=== PATIENT | female | born 1940 | race African-American/Black ===

== ENCOUNTER 2018-08-23 16:01 | Inpatient (IN) | payer MEDICARE, OTHER ==
[2018-08-23 16:31] VITALS: BMI 23.8
--- NOTE | 2018-08-23 17:11 | PDOC ---
Attending Attestation - Resident Resident Name: Magalie Swartz - ED Attending Attestation I have performed the following: I have examined & evaluated the patient, The case was reviewed & discussed with the resident, I agree w/resident's findings & plan, Exceptions are as noted - HPI HPI: 08/23/18 18:14 The patient is a 77 year old female, from [facility], with a significant PMH of hypertension, hyperlipidemia, COPD, dementia, type 2 DM, depression, who presents to the emergency department via EMS with decreased oral intake for 1 week. As per [facility] staff, the patient has had noticeable weight loss as of recently. The patient states she has had decreased oral intake this past week secondary to difficulty with mastication. The patient states if she attempts to swallow food without chewing she ends up vomiting. The patient endorses weakness secondary to the decreased oral intake. The patient also endorses one episode of non bloody, non bilious emesis this past week and a couple of episodes of diarrhea (non bloody) with the last occurring this morning. Pt is a poor historian. The patient denies chest pain, shortness of breath, headache and dizziness. Denies fever, chills, and constipation. Denies dysuria, frequency, urgency and hematuria. Allergies: NKA - Physicial Exam PE: 08/23/18 18:15 agree with resident exam - Medical Decision Making 08/23/18 18:15 77yo F with MMP presents to the ED with failure to thrive, poor PO intake, weight loss, possible rectal bleeding per [place] staff? Plan for labs, XR, UA, stool occult. Anticipate admission. Heart Score/ECG Review #1 08/23/18 18:57 Twelve-lead EKG was performed and reviewed by me. Sinus rhythm, rate 80. Normal axis. No ST elevations. Diffuse T-wave flattening.
[2018-08-23] MEDS ORDERED: SODIUM CHLORIDE 0.9% 500 ML INFUS.BAG IV ONE (17:28)
--- NOTE | 2018-08-23 17:58 | PDOC ---
History of Present Illness - General Chief Complaint: Loss of Appetite Stated Complaint: FAILURE TO THRIVE Time Seen by Provider: 08/23/18 16:28 History Source: Patient, Care Provider, Shelter Records Exam Limitations: Dementia - History of Present Illness Initial Comments: 08/23/18 17:46 77YOF with h/o dementia, HTN, HLD, COPD, DM, and iron deficiency anemia, who was BIBEMS for failure to thrive with 20 lbs weight loss since June 2018, also family reported intermittent rectal bleeding. The patient herself states she has had difficulty chewing for the past week and this is why she is not eating. She notes one episode of vomiting this week, also multiple episodes of diarrhea. [facility] records that arrived with the patient state, "Resident has had poor intake and poor appetite. Weight loss evident. GI consult done and recommended Gtube insertion. Needs evaluation if GI recommendation is possible for present condition. Needs evaluation for cause of appetite loss." On discussion over the phone with [facility] rep, he states the patient's family wanted her evaluated for this month-standing worsening appetite, generalized weakness, weight loss, and rectal bleeding. Otherwise the patient denies any new symptoms. Past History - Past Medical History Allergies/Adverse Reactions: Allergies Allergy/AdvReac Type Severity Reaction Status Date / Time No Known Allergies Allergy Verified 08/23/18 16:15 Home Medications: Ambulatory Orders Amlodipine Besylate [Norvasc -] 10 mg PO DAILY 08/23/18 Docusate Sodium [Colace] 200 mg PO DAILY 08/23/18 Ergocalciferol (Vitamin D2) [Vitamin D2] 50,000 unit PO WEEKLY 08/23/18 Ferrous Sulfate [Feosol] 325 mg PO DAILY 08/23/18 Lisinopril [Prinivil] 10 mg PO DAILY 08/23/18 Metformin HCl [Metformin HCl ER] 500 mg PO BID 08/23/18 Ranitidine [Zantac -] 150 mg PO BID 08/23/18 Anemia: Yes COPD: Yes Diabetes: Yes HTN: Yes Hypercholesterolemia: Yes - Suicide/Smoking/Psychosocial Hx Smoking History: Never smoked Review of Systems - Review of Systems Able to Perform ROS?: Yes Comments:: 08/23/18 18:00 GEN: generalized weakness, weight loss, no fever, chills, or malaise HEENT: difficulty chewing, no ear pain, sore throat, vision change, or eye pain CV: no chest pain, palpitations, lightheadedness, syncope, or edema RESP: no cough, wheezing, or SOB GI: vomiting, diarrhea, no abdominal pain, nausea, constipation, or white/black stool : vaginal skin tear, no dysuria, hematuria, incontinence, retention, bleeding , or discharge MSK: no neck/back pain, muscle weakness/pain, or joint swelling/pain NEURO: no headache, seizure, vertigo, numbness, tingling, or focal weakness PSYCH: no substance use, no behavior change SKIN: no jaundice, no rash ROS otherwise negative except as noted in HPI *Physical Exam - Vital Signs Last Vital Signs Temp Pulse Resp BP Pulse Ox 97.9 F 64 18 144/97 93 L 08/23/18 16:06 08/23/18 16:06 08/23/18 16:06 08/23/18 16:06 08/23/18 16:06 - Physical Exam Comments: 08/23/18 18:01 GENERAL: pleasant, bizarre affect, rocking back and forth for duration of interview, A/Ox4, no distress, answers questions appropriately, speech a bit difficult to understand HEENT: edentulous, PERRLA, EOMI, moist mucous membranes NECK/BACK: no midline ttp, no spinal stepoff or deformity, no hematoma, full ROM , neck supple CARDIOVASCULAR: regular rate/rhythm with occasional premature beat, normal S1S2 , 1/6 systolic ejection murmur, strong peripheral pulses, capillary refill <2 seconds, extremities wwp, no edema LUNGS/RESPIRATORY: no respiratory distress, CTAB GI/ABDOMEN: symmetric [id number], normoactive BS, soft, no ttp, no midline pulsatile masses : 0.5x1cm superficial ulceration to anterior labia minora which is dressed with Xeroform, no CVA tenderness EXTREMITIES: no muscle atrophy, no acute deformity SKIN: warm and dry, no pallor, no jaundice, no rash, no bruising, no skin breakdown, no cuts, no lesions NEUROLOGICAL: CN II-XII grossly intact, 5/5 strength proximally and distally, no facial droop Moderate Sedation - Procedure Monitoring Vital Signs: Procedure Monitoring Vital Signs Temperature 97.9 F 08/23/18 16:06 Pulse Rate 64 08/23/18 16:06 Respiratory Rate 18 08/23/18 16:06 Blood Pressure 144/97 08/23/18 16:06 O2 Sat by Pulse Oximetry (%) 93 L 08/23/18 16:06 ED Treatment Course - LABORATORY CBC & Chemistry Diagram: 08/23/18 18:00 08/23/18 18:00 - RADIOLOGY Radiology Studies Ordered: Category Date Time Status CHEST X-RAY PORTABLE* [RAD] Stat Radiology 08/23/18 17:28 Ordered Medical Decision Making - Medical Decision Making 08/23/18 18:06 Pt p/w report of intermittent rectal bleeding per SNF. Initial Vital Signs Temp Pulse Resp BP Pulse Ox 97.9 F 64 18 144/97 93 L 08/23/18 16:06 08/23/18 16:06 08/23/18 16:06 08/23/18 16:06 08/23/18 16:06 Exam: As noted in Physical Exam section. DDX IBNLT bleeding hemorrhoids (internal vs. external, simple vs. thrombosed), vascular malformation, ruptured diverticulum, diverticulitis, colorectal CA, mesenteric ischemia, anal fissure, ulcerative colitis, AAA/AD, endometriosis, Meckels diverticulum, supratherapeutic INR, etc. W/U ordered: Labs as noted below, CXR, EKG, CT A/P with IV contrast Tx ordered: IVF The patient is hemodynamically stable at this time (no hypotension, tachycardia , or reported decreased UOP). EKG: Reviewed; results as noted in ECG Review section. Laboratory Tests 08/23/18 08/23/18 08/23/18 18:00 18:00 18:00 WBC 4.0 RBC 4.22 Hgb 9.6 L Hct 30.8 L MCV 73.0 L MCH 22.8 L MCHC 31.2 L RDW 15.4 Plt Count 221 MPV 8.6 Absolute Neuts (auto) 2.4 Neutrophils % 60.2 Lymphocytes % 27.8 Monocytes % 7.6 Eosinophils % 4.0 Basophils % 0.4 Nucleated RBC % 0 PT with INR 16.70 H INR 1.41 H PTT (Actin FS) 26.9 Sodium 149 H Potassium 2.4 L* Chloride 107 Carbon Dioxide 33 H Anion Gap 9 BUN 5 L Creatinine 0.5 L Creat Clearance w eGFR > 60 Random Glucose 318 H* Calcium 7.2 L Phosphorus 1.6 L Magnesium 1.3 L Total Bilirubin 0.4 AST 12 L ALT 8 L Alkaline Phosphatase 112 Creatine Kinase Troponin I Total Protein 5.2 L Albumin 1.4 L Urine Color Urine Appearance Urine pH Ur Specific [place] Urine Protein Urine Glucose (UA) Urine Ketones Urine Blood Urine Nitrite Urine Bilirubin Urine Urobilinogen Ur Leukocyte Esterase Stool Occult Blood 08/23/18 08/23/18 08/23/18 18:02 18:15 18:40 WBC RBC Hgb Hct MCV MCH MCHC RDW Plt Count MPV Absolute Neuts (auto) Neutrophils % Lymphocytes % Monocytes % Eosinophils % Basophils % Nucleated RBC % PT with INR INR PTT (Actin FS) Sodium Potassium Chloride Carbon Dioxide Anion Gap BUN Creatinine Creat Clearance w eGFR Random Glucose Calcium Phosphorus Magnesium Total Bilirubin AST ALT Alkaline Phosphatase Creatine Kinase 152 Troponin I 0.06 H Total Protein Albumin Urine Color Ltyellow Urine Appearance Clear Urine pH 6.0 Ur Specific [place] 1.011 Urine Protein Negative Urine Glucose (UA) 3+ H Urine Ketones Negative Urine Blood Negative Urine Nitrite Negative Urine Bilirubin Negative Urine Urobilinogen 4.0 e.u/dl H Ur Leukocyte Esterase Negative Stool Occult Blood Negative Patient's Mg and potassium are low; orders placed to replete. She is pending CT A/P prior to admission. Patient's care is endorsed to Dr. Metcalf at the end of my shift. *DC/Admit/Observation/Transfer Diagnosis at time of Disposition: Failure to thrive syndrome, adult, Unexplained weight loss, Rectal bleeding - Discharge Dispostion Condition at time of disposition: Guarded - Referrals Referrals: Johan Mancuso MD [Primary Care Provider] - - Patient Instructions - Post Discharge Activity
[2018-08-23 18:13] LABS: BASO % 0.4 % (0-2.0); HEMATOCRIT 30.8 % (32.4-45.2); HEMOGLOBIN 9.6 GM/dL (10.7-15.3); LYMPH % 27.8 % (8-40); MCH 22.8 pg (25.7-33.7); MCHC 31.2 g/dl (32.0-36.0); MEAN PLT VOLUME 8.6 fl (7.5-11.1); MONO % 7.6 % (3.8-10.2); NEUT % 60.2 % (42.8-82.8); PLATELET COUNT 221 K/MM3 (134-434); RBC 4.22 M/mm3 (3.60-5.2); RDW 15.4 % (11.6-15.6)
[2018-08-23 18:28] LABS: INR 1.41 (0.83-1.09); PROTHROMBIN TIME (PATIENT) 16.7 SEC (9.7-13.0)
[2018-08-23 18:47] LABS: ALBUMIN 1.4 g/dl (3.4-5.0); ALK PHOS 112 U/L (45-117); ANION GAP 9 MMOL/L (8-16); BILIRUBIN,TOTAL 0.4 mg/dL (0.2-1); BLOOD UREA NITROGEN 5 mg/dL (7-18); CALCIUM 7.2 mg/dL (8.5-10.1); CHLORIDE 107 mmol/L (98-107); CO2 33 mmol/L (21-32); CREATININE 0.5 mg/dL (0.55-1.3); MAGNESIUM 1.3 mg/dL (1.8-2.4); PHOSPHOROUS 1.6 mg/dL (2.5-4.9); SGOT/AST 12 U/L (15-37); SGPT/ALT 8 U/L (13-61); SODIUM 149 mmol/L (136-145); TOT PROT 5.2 g/dl (6.4-8.2)
[2018-08-23 18:48] LABS: ACTIVATED PTT 26.9 SECONDS (25.2-36.5)
[2018-08-23 18:48] LABS: URINE APPEARANCE CLEAR; URINE BILIRUBIN NEGATIVE (<2.0 mg/dL); URINE COLOR LTYELLOW; URINE GLUCOSE (UA) 3+ (NEGATIVE); URINE KETONE NEGATIVE (NEGATIVE); URINE LEUK ESTERASE NEGATIVE (NEGATIVE); URINE NITRITE NEGATIVE (NEGATIVE); URINE PROTEIN NEGATIVE (NEGATIVE); URINE UROBILINOGEN 4.0 E.U/dl mg/dL (0.2-1.0)
[2018-08-23 18:49] LABS: GLUCOSE,RANDOM 318 mg/dL (74-106)
[2018-08-23 18:50] LABS: POTASSIUM 2.4 mmol/L (3.5-5.1)
[2018-08-23] MEDS ORDERED: POTASSIUM CHLORIDE ORAL LIQUID 20 MEQ/15 ML PO ONE (18:54)
[2018-08-23] MEDS ORDERED: POTASSIUM CHLORIDE 20 MEQ PREMIX IVPB 100 ML IVPB ONE (18:56)
[2018-08-23] MEDS ORDERED: MAGNESIUM SULF 50% (8.12 MEQ/2 ML-1 GM VIAL) IVPB ONE (18:58)
[2018-08-23] MEDS ORDERED: MAGNESIUM 1GM/D5W - 2 GM/200 ML IVPB IVPB ONE (19:07)
[2018-08-23] MEDS ORDERED: POTASSIUM CHLORIDE ORAL LIQUID 20 MEQ/15 ML ONE (19:07)
--- NOTE | 2018-08-23 19:07 | PDOC ---
*Physical Exam - Vital Signs Last Vital Signs Temp Pulse Resp BP Pulse Ox 97.9 F 64 18 144/97 93 L 08/23/18 16:06 08/23/18 16:06 08/23/18 16:06 08/23/18 16:06 08/23/18 16:06 ED Treatment Course - LABORATORY CBC & Chemistry Diagram: 08/23/18 18:00 08/23/18 18:00 - ADDITIONAL ORDERS Additional order review: Laboratory Results 08/23/18 08/23/18 08/23/18 18:40 18:15 18:02 PT with INR INR PTT (Actin FS) Sodium Potassium Chloride Carbon Dioxide Anion Gap BUN Creatinine Creat Clearance w eGFR Random Glucose Calcium Phosphorus Magnesium Total Bilirubin AST ALT Alkaline Phosphatase Creatine Kinase 152 Creatine Kinase Index 0.6 CK-MB (CK-2) < 1.0 Troponin I 0.06 H Total Protein Albumin Urine Color Ltyellow Urine Appearance Clear Urine pH 6.0 Ur Specific [place] 1.011 Urine Protein Negative Urine Glucose (UA) 3+ H Urine Ketones Negative Urine Blood Negative Urine Nitrite Negative Urine Bilirubin Negative Urine Urobilinogen 4.0 e.u/dl H Ur Leukocyte Esterase Negative Stool Occult Blood Negative 08/23/18 08/23/18 18:00 18:00 PT with INR 16.70 H INR 1.41 H PTT (Actin FS) 26.9 Sodium 149 H Potassium 2.4 L* Chloride 107 Carbon Dioxide 33 H Anion Gap 9 BUN 5 L Creatinine 0.5 L Creat Clearance w eGFR > 60 Random Glucose 318 H* Calcium 7.2 L Phosphorus 1.6 L Magnesium 1.3 L Total Bilirubin 0.4 AST 12 L ALT 8 L Alkaline Phosphatase 112 Creatine Kinase Creatine Kinase Index CK-MB (CK-2) Troponin I Total Protein 5.2 L Albumin 1.4 L Urine Color Urine Appearance Urine pH Ur Specific [place] Urine Protein Urine Glucose (UA) Urine Ketones Urine Blood Urine Nitrite Urine Bilirubin Urine Urobilinogen Ur Leukocyte Esterase Stool Occult Blood 08/23/18 18:00 RBC 4.22 MCV 73.0 L MCHC 31.2 L RDW 15.4 MPV 8.6 Neutrophils % 60.2 Lymphocytes % 27.8 Monocytes % 7.6 Eosinophils % 4.0 Basophils % 0.4 - Medications Given in the ED: ED Medications Discontinued Medications Generic Name Dose Route Start Last Admin Trade Name Freq PRN Reason Stop Dose Admin Sodium Chloride 1,000 ml 08/23/18 17:28 08/23/18 18:04 Normal Saline - IV 08/23/18 17:29 1,000 ml ONCE ONE Administration Medical Decision Making - Medical Decision Making Pending CT A&P for evaluation of mass v SBO Plan for admission for FTT 08/23/18 19:07 Pepcid 20mg IV once 08/23/18 19:09 Refusing PO contrast Refusing PO KCl 08/23/18 19:39 CT w/ evidence of proctocolitis and TAAA/dissection Dispo: admit for FTT, proctocolitis 08/24/18 04:32 *DC/Admit/Observation/Transfer Diagnosis at time of Disposition: Failure to thrive syndrome, adult, Unexplained weight loss, Rectal bleeding - Discharge Dispostion Condition at time of disposition: Guarded Decision to Admit order: Yes - Referrals - Patient Instructions - Post Discharge Activity
[2018-08-23] MEDS ORDERED: FAMOTIDINE 20 MG/50 ML IVPB 20 MG/50 ML MG IVPB ONE ×2 (19:09→20:46)
[2018-08-23] MEDS ORDERED: KCL 10 MEQ IVPB 20 MEQ/200 ML INFUS.BAG IVPB ONE (19:21)
[2018-08-23 19:22] LABS: PLATELET ESTIMATE ADEQUATE; TARGET CELLS 1+; TOXIC GRANULATION 1+
--- NOTE | 2018-08-23 19:42 | PDOC ---
*Physical Exam - Vital Signs Last Vital Signs Temp Pulse Resp BP Pulse Ox 97.9 F 64 18 144/97 93 L 08/23/18 16:06 08/23/18 16:06 08/23/18 16:06 08/23/18 16:06 08/23/18 16:06 ED Treatment Course - LABORATORY CBC & Chemistry Diagram: 08/23/18 18:00 08/23/18 18:00 - ADDITIONAL ORDERS Additional order review: Laboratory Results 08/23/18 08/23/18 08/23/18 18:40 18:15 18:02 PT with INR INR PTT (Actin FS) Sodium Potassium Chloride Carbon Dioxide Anion Gap BUN Creatinine Creat Clearance w eGFR Random Glucose Calcium Phosphorus Magnesium Total Bilirubin AST ALT Alkaline Phosphatase Creatine Kinase 152 Creatine Kinase Index 0.6 CK-MB (CK-2) < 1.0 Troponin I 0.06 H Total Protein Albumin Urine Color Ltyellow Urine Appearance Clear Urine pH 6.0 Ur Specific [place] 1.011 Urine Protein Negative Urine Glucose (UA) 3+ H Urine Ketones Negative Urine Blood Negative Urine Nitrite Negative Urine Bilirubin Negative Urine Urobilinogen 4.0 e.u/dl H Ur Leukocyte Esterase Negative Stool Occult Blood Negative 08/23/18 08/23/18 18:00 18:00 PT with INR 16.70 H INR 1.41 H PTT (Actin FS) 26.9 Sodium 149 H Potassium 2.4 L* Chloride 107 Carbon Dioxide 33 H Anion Gap 9 BUN 5 L Creatinine 0.5 L Creat Clearance w eGFR > 60 Random Glucose 318 H* Calcium 7.2 L Phosphorus 1.6 L Magnesium 1.3 L Total Bilirubin 0.4 AST 12 L ALT 8 L Alkaline Phosphatase 112 Creatine Kinase Creatine Kinase Index CK-MB (CK-2) Troponin I Total Protein 5.2 L Albumin 1.4 L Urine Color Urine Appearance Urine pH Ur Specific [place] Urine Protein Urine Glucose (UA) Urine Ketones Urine Blood Urine Nitrite Urine Bilirubin Urine Urobilinogen Ur Leukocyte Esterase Stool Occult Blood 08/23/18 18:00 RBC 4.22 MCV 73.0 L MCHC 31.2 L RDW 15.4 MPV 8.6 Neutrophils % 60.2 Lymphocytes % 27.8 Monocytes % 7.6 Eosinophils % 4.0 Basophils % 0.4 - Medications Given in the ED: ED Medications Discontinued Medications Generic Name Dose Route Start Last Admin Trade Name Freq PRN Reason Stop Dose Admin Magnesium Sulfate 2 gm 08/23/18 18:58 08/23/18 19:17 Magnesium Sulfate IVPB 08/23/18 18:59 2 gm ONCE ONE Administration Potassium Chloride 80 meq 08/23/18 18:54 08/23/18 19:39 Potassium Chloride Oral Liquid PO 08/23/18 18:55 Not Given ONCE ONE Potassium Chloride 30 meq 08/23/18 18:56 08/23/18 19:38 Potassium Chloride 20 Meq Premix Ivpb - IVPB 08/23/18 18:57 30 meq ONCE ONE Administration Sodium Chloride 1,000 ml 08/23/18 17:28 08/23/18 18:04 Normal Saline - IV 08/23/18 17:29 1,000 ml ONCE ONE Administration Medical Decision Making - Medical Decision Making 08/23/18 19:39 I received pt on signout. She is not eating at the IN and her K and Mg and albumin are low. Pt is unwilling to take the PO potassium that had been written for her by the previous team. And she is unwilling to take the oral contrast for CT scan. As a result we will order more K+ IV riders and we will change her CT scan to one with IV contrast only, as her BUN and Cr are normal. 08/23/18 20:08 Pt appears to have shingles at the lateral left wrist area, and she will require isolation when she is admitted. *DC/Admit/Observation/Transfer Diagnosis at time of Disposition: Failure to thrive syndrome, adult, Unexplained weight loss, Rectal bleeding - Discharge Dispostion Condition at time of disposition: Guarded - Referrals Referrals: Johan Mancuso MD [Primary Care Provider] - - Patient Instructions - Post Discharge Activity
[2018-08-23] MEDS ORDERED: KCL 10 MEQ IVPB 10 MEQ/100 ML INFUS.BAG IVPB ONE (21:49)
[2018-08-23] MEDS ORDERED: NAPH,MB-DB/K PH,MBDB POWDER PACKET PO ONE (21:56)
[2018-08-23] MEDS ORDERED: SODIUM CHLORIDE 0.45%/POT 20 MEQ/1,000 ML INFUS.BAG IV SCH (22:45)
--- NOTE | 2018-08-23 23:30 | HP ---
CHIEF COMPLAINT: failure to thrive PCP: from [facility] HISTORY OF PRESENT ILLNESS: 77 YO F from [facility] with PMH of HTN, HLD, DM2, COPD, dementia and depression , sent for the concern of failure to thrive/20lb weight loss since June 2018. Patient is a poor historian, and thus initial history was obtained from ED physician and prior records. Patient endorses decreased appetite for the past week and multiple episodes of watery, non-bloody diarrhea with generalized weakness. She denies any abdominal pain, difficulty swallowing, fever/chills, constipation or urinary symptoms. States that she simple has no desire to eat. ER course was notable for: (1) CT abd/pelvis: acute proctocolitis, fusiform aneurysmal dilation (2) (3) Recent Travel: unknown PAST MEDICAL HISTORY: HTN, HLD, DM2, COPD, dementia and depression PAST SURGICAL HISTORY: multiple abdominal surgeries Social History: Smoking: former smoker, unknown duration Alcohol: unable to obtain secondary to mental status Drugs: unable to obtain secondary to mental status Family History: unknown Allergies No Known Allergies Allergy (Verified 08/23/18 16:15) HOME MEDICATIONS: Home Medications Medication Instructions Recorded Amlodipine Besylate [Norvasc -] 10 mg PO DAILY 08/23/18 Docusate Sodium [Colace] 200 mg PO DAILY 08/23/18 Ergocalciferol (Vitamin D2) 50,000 unit PO WEEKLY 08/23/18 [Vitamin D2] Ferrous Sulfate [Feosol] 325 mg PO DAILY 08/23/18 Lisinopril [Prinivil] 10 mg PO DAILY 08/23/18 Metformin HCl [Metformin HCl ER] 500 mg PO BID 08/23/18 Ranitidine [Zantac -] 150 mg PO BID 08/23/18 REVIEW OF SYSTEMS Unable to assess due to mental status PHYSICAL EXAMINATION Vital Signs - 24 hr 08/23/18 08/23/18 16:06 22:25 Temperature 97.9 F Pulse Rate 64 Pulse Rate [ 79 Apical] Respiratory 18 18 Rate Blood Pressure 144/97 Blood Pressure 147/83 [Right Arm] O2 Sat by Pulse 93 L 96 Oximetry (%) GENERAL: A&Ox1 to person, NAD HEAD: Normal with no signs of trauma. EYES: Pupils equal, round and reactive to light, EOMI, sclera anicteric, conjunctiva clear. No lid lag. EARS, NOSE, THROAT: Moist mucous membranes. LUNGS: Breath sounds equal, clear to auscultation bilaterally. No wheezes, and no crackles. No accessory muscle use. HEART: Regular rate and rhythm, systolic ejection murmur radiating to carotids ABDOMEN: Soft, nontender, not distended, normoactive bowel sounds, no guarding, no rebound, no masses. No hepatomegaly or splenomegaly. GENITOURINARY: vaginal skin tear, no hematuria MUSCULOSKELETAL: Normal range of motion at all joints. Strength 5/5 throughout. UPPER EXTREMITIES: 2+ pulses, warm, well-perfused. No cyanosis. No clubbing. No peripheral edema. LOWER EXTREMITIES: 2+ pulses, warm, well-perfused. No calf tenderness. No peripheral edema. NEUROLOGICAL: Cranial nerves II-XII intact. SKIN: Warm, dry, normal turgor, rash noted on left lateral forearm Laboratory Results - last 24 hr 08/23/18 08/23/18 08/23/18 18:00 18:00 18:00 WBC 4.0 RBC 4.22 Hgb 9.6 L Hct 30.8 L MCV 73.0 L MCH 22.8 L MCHC 31.2 L RDW 15.4 Plt Count 221 MPV 8.6 Absolute Neuts (auto) 2.4 Total Counted 100 Neutrophils % 60.2 Neutrophils % (Manual) 57.0 Band Neutrophils % 11.0 Lymphocytes % 27.8 Lymphocytes % (Manual) 25.0 Monocytes % 7.6 Monocytes % (Manual) 5 Eosinophils % 4.0 Eosinophils % (Manual) 3.0 Basophils % 0.4 Nucleated RBC % 0 Hypochromia 1+ Toxic Granulation 1+ Platelet Estimate Adequate Platelet Comment No clumping noted Polychromasia 1+ Target Cells 1+ PT with INR 16.70 H INR 1.41 H PTT (Actin FS) 26.9 Sodium 149 H Potassium 2.4 L* Chloride 107 Carbon Dioxide 33 H Anion Gap 9 BUN 5 L Creatinine 0.5 L Creat Clearance w eGFR > 60 Random Glucose 318 H* Calcium 7.2 L Phosphorus 1.6 L Magnesium 1.3 L Total Bilirubin 0.4 AST 12 L ALT 8 L Alkaline Phosphatase 112 Creatine Kinase Creatine Kinase Index CK-MB (CK-2) Troponin I Total Protein 5.2 L Albumin 1.4 L Urine Color Urine Appearance Urine pH Ur Specific [place] [employer] Urine Protein Urine Glucose (UA) Urine Ketones Urine Blood Urine Nitrite Urine Bilirubin Urine Urobilinogen Ur Leukocyte Esterase Stool Occult Blood 08/23/18 08/23/18 08/23/18 18:02 18:15 18:40 WBC RBC Hgb Hct MCV MCH MCHC RDW Plt Count MPV Absolute Neuts (auto) Total Counted Neutrophils % Neutrophils % (Manual) Band Neutrophils % Lymphocytes % Lymphocytes % (Manual) Monocytes % Monocytes % (Manual) Eosinophils % Eosinophils % (Manual) Basophils % Nucleated RBC % Hypochromia Toxic Granulation Platelet Estimate Platelet Comment Polychromasia Target Cells PT with INR INR PTT (Actin FS) Sodium Potassium Chloride Carbon Dioxide Anion Gap BUN Creatinine Creat Clearance w eGFR Random Glucose Calcium Phosphorus Magnesium Total Bilirubin AST ALT Alkaline Phosphatase Creatine Kinase 152 Creatine Kinase Index 0.6 CK-MB (CK-2) < 1.0 Troponin I 0.06 H Total Protein Albumin Urine Color Ltyellow Urine Appearance Clear Urine pH 6.0 Ur Specific [employer] 1.011 Urine Protein Negative Urine Glucose (UA) 3+ H Urine Ketones Negative Urine Blood Negative Urine Nitrite Negative Urine Bilirubin Negative Urine Urobilinogen 4.0 e.u/dl H Ur Leukocyte Esterase Negative Stool Occult Blood Negative ASSESSMENT/PLAN: 77 YO F from [facility] with PMH of HTN, HLD, DM2, COPD, dementia and depression, sent for failure to thrive and 20lb weight loss since June 2018. #Failure to Thrive: likely due to decreased PO intake and decreased appetite. This is likely a multifactorial problem which would require investigation into a possible malignancy vs intestinal anginal symptoms based on cardiovascular risk factors -patient's CT showed calcified aorta and both thoracic and abdominal aortic aneurysmal dilatations and acute proctocolitis -albumin 1.4, elevated INR both likely due to failure to thrive -GI consulted -brazing machine setter consult -diabetic/sodium diet if tolerated -gave 1 bag of 1/2ns + 20meq KCL @ 83cc/hr -cyproheptadine TIDAC ordered as potential appetite stimulation, will obtain GI and dietary input -will perform CTA of chest and abdomen to further assess for malignancy #Acute Proctocolitis: likely the cause of patient's diarrhea and electrolyte abnormalities -started patient on metronidazole [id number] -blood cultures pending -urine cultures pending -diabetic sodium diet unless not tolerated, then will change to NPO #Aortic Aneurysms: patient has both thoracic and abdominal aneurysmal dilatations -vascular consulted Dr. Trejo -will hold off on anticoagulation prophylaxis for DVT until vascular clears #Hyperosmolar Hypovolemic Hypernatremia: potentially a result of poor PO intake -serum osm 325 -corrected sodium 152 mEq/L -urine creatinine and FeNa ordered -1/2NS+20mEq KCl given as fluid replacement #Elevated INR: likely secondary to failure to thrive and inappropriate clotting factor production -will recheck INR #Hypophosphatemia -repleting phosphorous -recheck levels in the morning #Severe Hypokalemia: initial potassium was 2.4 -K and Mg repleted in ED -continue IV infusion of 1/2 NaCl + 20 K -repeat levels in AM #Troponinemia: unlikely acute ACS -will get echocardiogram -cardiology consultation for evaluation of valvular abnormality and troponinemia #Hypoalbuminemia: likely 2/2 decreased PO intake -repeat CMP #Diabetes mellitus -held metformin -give ISS, BGMs ACHS #Hypertension: mildly hypertensive -repeat BP in AM -monitor salt intake -continue amlodipine 10mg QD -continue lisinopril 10mg QD #Anemia -continue iron supplementation #FEN -1/2NS+20mEq KCl -replete lytes as per above -diabetic/sodium diet as tolerated, get dietary input #PPx -hold lovenox until vascular approves Visit type - Emergency Visit Emergency Visit: Yes ED Registration Date: 08/23/18 Care time: The patient presented to the Emergency Department on the above date and was hospitalized for further evaluation of their emergent condition. - New Patient This patient is new to me today: Yes Date on this admission: 08/24/18 - Critical Care Critical Care patient: No
--- NOTE | 2018-08-23 23:43 | PN ---
Teaching Attending Note Name of Resident: Alfredo Kwon ATTENDING PHYSICIAN STATEMENT I saw and evaluated the patient. I reviewed the resident's note and discussed the case with the resident. I agree with the resident's findings and plan as documented. SUBJECTIVE: OBJECTIVE: ASSESSMENT AND PLAN: this is a 77 y/o f patient with moderate dementia, presented to the hospital after the patient was referred from the [place] for failure to thrive, weight-loss poor oral intake assocaited with diarrhea, patient is a poor historian - the history was obtained from the chart mostly. patient was noted to have aneurysm of the thoracic aorta, and abdominal aorta with severe calcification no masses were seen on the scan plan - admit the patient for the management of electrolyte abnormalities, aortic aneurysm, hyperglycemia, failure to thrive decrease PO intake - possible 2/2 post-prandil angina vs malignancy hypovolemic Hypernatremia: - obtain TSH - fluid hydration - correct 152 - obtain urine electrolyte for the FeNa Hypokalemia 2/2 acute GI loss and poor oral intake - replenish K - increase PO intake Hypophosphatemia: - replenish phosphate keep > 2.0 hypoalbumiemia - 2/2 to poor oral intake - national sales associate evaluation - ensure Aortic aneurysm: - consult vascular surgery - avoid enoxaparin, heparin, or anti-coagulation due to the aneurysm Diarrhea 2/2 procto-colitis - start metronidzaole 500mg [id number] DM: insulin sliding scale
--- NOTE | 2018-08-24 03:33 | PN ---
Progress Note (short form) - Note Progress Note: Vital Signs Temperature 97.9 F 08/23/18 23:48 Pulse Rate 69 08/23/18 23:48 Respiratory Rate 18 08/23/18 23:48 Blood Pressure 133/82 08/23/18 23:48 O2 Sat by Pulse Oximetry (%) 94 L 08/23/18 23:48 GENERAL: A&Ox1 to person, NAD HEAD: Normal with no signs of trauma. EYES: Pupils equal, round and reactive to light, EOMI, sclera anicteric, conjunctiva clear. EARS, NOSE, THROAT: Moist mucous membranes. LUNGS: Breath sounds equal, clear to auscultation bilaterally. No wheezes, and no crackles. No accessory muscle use. HEART: Regular rate and rhythm, ROCKY 3/6 --- radiating to carotids ABDOMEN: Soft, nontender, not distended, normoactive bowel sounds, no guarding, no rebound, no masses. No hepatomegaly or splenomegaly. MUSCULOSKELETAL: Normal range of motion at all joints. Strength 5/5 throughout. EXTREMITIES: 2+ pulses, warm, well-perfused. No cyanosis. No clubbing. No peripheral edema. NEUROLOGICAL: Cranial nerves II-XII intact. SKIN: Warm, dry, normal turgor, rash noted on left lateral forearm GENITOURINARY: vaginal skin tear, no hematuria CBCD WBC 4.0 K/mm3 (4.0-10.0) 08/23/18 18:00 RBC 4.22 M/mm3 (3.60-5.2) 08/23/18 18:00 Hgb 9.6 GM/dL (10.7-15.3) L 08/23/18 18:00 Hct 30.8 % (32.4-45.2) L 08/23/18 18:00 MCV 73.0 fl (80-96) L 08/23/18 18:00 MCHC 31.2 g/dl (32.0-36.0) L 08/23/18 18:00 RDW 15.4 % (11.6-15.6) 08/23/18 18:00 Plt Count 221 K/MM3 (134-434) 08/23/18 18:00 MPV 8.6 fl (7.5-11.1) 08/23/18 18:00 CMP Sodium 149 mmol/L (136-145) H 08/23/18 18:00 Potassium 2.4 mmol/L (3.5-5.1) L* 08/23/18 18:00 Chloride 107 mmol/L (98-107) 08/23/18 18:00 Carbon Dioxide 33 mmol/L (21-32) H 08/23/18 18:00 Anion Gap 9 MMOL/L (8-16) 08/23/18 18:00 BUN 5 mg/dL (7-18) L 08/23/18 18:00 Creatinine 0.5 mg/dL (0.55-1.3) L 08/23/18 18:00 Creat Clearance w eGFR > 60 (>60) 08/23/18 18:00 Random Glucose 318 mg/dL (74-106) H* 08/23/18 18:00 Calcium 7.2 mg/dL (8.5-10.1) L 08/23/18 18:00 Total Bilirubin 0.4 mg/dL (0.2-1) 08/23/18 18:00 AST 12 U/L (15-37) L 08/23/18 18:00 ALT 8 U/L (13-61) L 08/23/18 18:00 Alkaline Phosphatase 112 U/L (45-117) 08/23/18 18:00 Total Protein 5.2 g/dl (6.4-8.2) L 08/23/18 18:00 Albumin 1.4 g/dl (3.4-5.0) L 08/23/18 18:00 CARDIAC ENZYMES Creatine Kinase 152 IU/L (26-192) 08/23/18 18:02 Troponin I 0.06 ng/ml (0.00-0.05) H 08/23/18 18:02 Current Medications Generic Name Dose Route Start Last Admin Trade Name Freq PRN Reason Stop Dose Admin Amlodipine Besylate 10 mg 08/24/18 10:00 Norvasc - PO DAILY [facility] Cyproheptadine HCl 4 mg 08/24/18 07:00 Periactin - PO TIDAC [facility] Ferrous Sulfate 325 mg 08/24/18 10:00 Feosol - PO DAILY [facility] Potassium Chloride/Sodium Chloride 20 meq in 1,000 mls @ 83 mls/hr 08/23/18 22 :45 08/23/18 23:36 1/2ns+20meq Kcl IV 08/24/18 10:48 83 mls/hr ASDIR [facility] Administration Metronidazole 500 mg in 100 mls @ 100 mls/hr 08/23/18 23:15 08/23/18 23:39 Flagyl 500mg Premixed Ivpb - IVPB 100 mls/hr Q6H-IV [facility] Administration Insulin Aspart 1 vial 08/24/18 07:00 Novolog Vial Sliding Scale - SQ ACHS [facility] Protocol Lisinopril 10 mg 08/24/18 10:00 Prinivil PO DAILY [facility] Ranitidine HCl 150 mg 08/24/18 10:00 Zantac - PO BID [facility] Home Medications Medication Instructions Recorded Amlodipine Besylate [Norvasc -] 10 mg PO DAILY 08/23/18 Docusate Sodium [Colace] 200 mg PO DAILY 08/23/18 Ergocalciferol (Vitamin D2) 50,000 unit PO WEEKLY 08/23/18 [Vitamin D2] Ferrous Sulfate [Feosol] 325 mg PO DAILY 08/23/18 Lisinopril [Prinivil] 10 mg PO DAILY 08/23/18 Metformin HCl [Metformin HCl ER] 500 mg PO BID 08/23/18 Ranitidine [Zantac -] 150 mg PO BID 08/23/18 CT showed calcified aorta and both thoracic and abdominal aortic aneurysmal dilatations and acute proctocolitis, mural infrarenal thrombus A/P: Patient is a 77yo female from [facility] with PMH of HTN, HLD, DM2, COPD, dementia and depression, sent for failure to thrive and 20lb weight loss since June 2018. #Failure to Thrive: multifactorial , on ivf , Gi consult ,CTA of chest and abdomen to further assess for malignancy #Acute Proctocolitis: likely the cause of patient's diarrhea and electrolyte abnormalities, started patient on metronidazole 500 q6h, IV -blood cx, urine cx is pending #Aortic Aneurysms: patient has both thoracic and abdominal aneurysmal dilatations, vascular consulted Dr. Trejo Infrarenal mural thrombus ; will get dr. Trejo to see the patient , will hold off on anticoagulation prophylaxis for DVT until vascular clears #Acute Hypernatremia: On IVF, will get nephrology involved #Elevated INR: likely secondary to failure to thrive, follow INR #Hypophosphatemia replete phosphorous, monitor #Severe Hypokalemia: initial potassium was 2.4, replete #Troponinemia: unlikely acute ACS, get echocardiogram -cardiology consultation for evaluation of valvular abnormality and troponinemia #Hypoalbuminemia: due to decreased PO intake #Diabetes mellitus: SS with coverage, hold metformin #Hypertension: continue amlodipine 10mg QD, lisinopril 10mg QD #Anemia continue iron supplementation DVT PPx: hold lovenox until vascular approves
[2018-08-24] MEDS: CEFAZOLIN 1 GM/D5W 1 GM/50 ML BAG IVPB SCH ×3 (06:23→20:32)
[2018-08-24] MEDS: INSULIN SLIDING SCALE (NOVOLOG) 1 VIAL SQ SCH ×4 (06:23→22:56)
[2018-08-24 06:51] LABS: HEMATOCRIT 27.5 % (32.4-45.2); HEMOGLOBIN 8.7 GM/dL (10.7-15.3); MCHC 31.7 g/dl (32.0-36.0); MEAN CELL VOLUME 72.6 fl (80-96); MEAN PLT VOLUME 8.9 fl (7.5-11.1); PLATELET COUNT 224 K/MM3 (134-434); RBC 3.78 M/mm3 (3.60-5.2); RDW 14.9 % (11.6-15.6); WHITE BLOOD COUNT 5.3 K/mm3 (4.0-10.0)
[2018-08-24] MEDS ORDERED: CYPROHEPTADINE HCL 4 MG TABLET PO SCH (07:00)
[2018-08-24 07:41] LABS: ALBUMIN 1.3 g/dl (3.4-5.0); ALK PHOS 105 U/L (45-117); ANION GAP 7 MMOL/L (8-16); BILIRUBIN,TOTAL 0.8 mg/dL (0.2-1); BLOOD UREA NITROGEN 4 mg/dL (7-18); CHLORIDE 107 mmol/L (98-107); CO2 33 mmol/L (21-32); CREATININE 0.5 mg/dL (0.55-1.3); MAGNESIUM 1.8 mg/dL (1.8-2.4); PHOSPHOROUS 1.6 mg/dL (2.5-4.9); SGOT/AST 10 U/L (15-37); SGPT/ALT 8 U/L (13-61); SODIUM 147 mmol/L (136-145); TOT PROT 4.8 g/dl (6.4-8.2)
[2018-08-24 08:03] LABS: GLUCOSE,RANDOM 304 mg/dL (74-106)
[2018-08-24 08:04] LABS: CALCIUM 6.8 mg/dL (8.5-10.1); POTASSIUM 2.1 mmol/L (3.5-5.1)
[2018-08-24] MEDS ORDERED: ENOXAPARIN NA (PORCINE) 40 MG/0.4 ML DISP.SYRIN SQ SCH (10:00)
[2018-08-24] MEDS: FERROUS SO4 325 MG TABLET (FP) PO SCH (10:01)
[2018-08-24] MEDS: RANITIDINE HCL 150 MG TABLET (FP) PO SCH ×2 (10:01→22:24)
[2018-08-24] MEDS: amLODIPine BESYLATE 10 MG TABLET (FP) PO SCH (10:01)
[2018-08-24] MEDS: LISINOPRIL 10 MG TABLET (FP) PO SCH (10:02)
[2018-08-24] MEDS ORDERED: POTASSIUM CHLORIDE ORAL LIQUID 20 MEQ/15 ML PO ONE (10:21)
--- NOTE | 2018-08-24 10:51 | CON.CARD ---
Consult Consult Specialty:: Cardiology Referred by:: Curtis Reason for Consultation:: aortic aneurysm - History of Present Illness Chief Complaint: weakness History of Present Illness: 77F h/o HTN, HLD, DM, COPD, dementia p/w failure to thrive, weight loss, weakness. Also diarrhea, weakness. CT showed calcified aorta, abd and thoracic aneurysmal dilation and acute proctocolitis. Undergoing malignancy workup. Troponin 0.06->0.07. Patient unable to give further hx, says she feels well, no chest pain, palps, dizziness, lightheadedness. - Past Medical History ...: No - Alcohol/Substance Use Hx Alcohol Use: No - Smoking History Smoking history: Never smoked Have you smoked in the past 12 months: No Home Medications - Allergies Allergies/Adverse Reactions: Allergies Allergy/AdvReac Type Severity Reaction Status Date / Time No Known Allergies Allergy Verified 08/23/18 16:15 - Home Medications Home Medications: Ambulatory Orders Amlodipine Besylate [Norvasc -] 10 mg PO DAILY 08/23/18 Docusate Sodium [Colace] 200 mg PO DAILY 08/23/18 Ergocalciferol (Vitamin D2) [Vitamin D2] 50,000 unit PO WEEKLY 08/23/18 Ferrous Sulfate [Feosol] 325 mg PO DAILY 08/23/18 Lisinopril [Prinivil] 10 mg PO DAILY 08/23/18 Metformin HCl [Metformin HCl ER] 500 mg PO BID 08/23/18 Ranitidine [Zantac -] 150 mg PO BID 08/23/18 Family Disease History - Family Disease History Family History: Unable to Obtain Review of Systems - Review of Systems Constitutional: reports: No Symptoms Eyes: reports: No Symptoms HENT: reports: No Symptoms Neck: reports: No Symptoms Cardiovascular: reports: No Symptoms Respiratory: reports: No Symptoms Gastrointestinal: reports: No Symptoms Genitourinary: reports: No Symptoms Musculoskeletal: reports: No Symptoms Integumentary: reports: No Symptoms Neurological: reports: No Symptoms Endocrine: reports: No Symptoms Hematology/Lymphatic: reports: No Symptoms Psychiatric: reports: No Symptoms Vital Signs: Vital Signs Temperature 98.1 F 08/24/18 06:00 Pulse Rate 81 08/24/18 06:00 Respiratory Rate 18 08/24/18 08:37 Blood Pressure 124/67 08/24/18 06:00 O2 Sat by Pulse Oximetry (%) 94 L 08/24/18 08:37 Constitutional: Yes: Well Nourished, No Distress, Calm Eyes: Yes: Conjunctiva Clear, EOM Intact HENT: Yes: Atraumatic, Normocephalic Neck: Yes: Supple, Trachea Midline Respiratory: Yes: Regular, CTA Bilaterally Gastrointestinal: Yes: Normal Bowel Sounds Cardiovascular: Yes: Regular Rate and Rhythm JVD: No Carotid Bruit: No Heart Sounds: Yes: S1, S2 Murmur: No: Systolic Murmur Musculoskeletal: No: Back Pain Extremities: No: Cold Edema: No Peripheral Pulses WNL: Yes Peripheral Pulses: 2+ Left Doralis Pedis, 2+ Right Dorsalis Pedis Neurological: Yes: Alert, Confusion Psychiatric: No: Agitated - Other Data Labs, Other Data: CBC, BMP 08/24/18 05:30 08/24/18 05:30 INR, PTT INR 1.41 (0.83-1.09) H 08/23/18 18:00 Troponin, BNP 08/23/18 08/24/18 18:02 05:30 Troponin I 0.06 H 0.07 H Troponin, BNP 08/23/18 08/24/18 18:02 05:30 Troponin I 0.06 H 0.07 H Assessment/Plan EKG: sinus, PACs, PVC, no ischemic changes CXR: no acute process tele: sinus, PACs, PVCs CT A/P: acute proctocolitis, partially imaged descending thoracic aorta with aneurysmal dilation at least 4 cm, mural thrombus along dilated segment, extends into suprarenal and infrarenal aorta with max diameter 3.4 cm, mural thrombus along l lateral aspect of infrarenal aorta, extensive atheroscloerotic vascular calcifications are seen, small john pleural effusions Failure to thrive, weakness - manage per primary, on abx, lytes repletion elevated troponin - indeterminate range, flat trend, unremarkable EKG - unlikely ACS abdominal and thoracic aorta aneurysm - CT chest pending for further evaluation, not well visualized but reportedly > 4 cm thoracic - vascular consulted - echo ordered as well ?aortic stenosis - per report overnight, patient not aware of hx, poor historian - did not auscultate murmur c/w on exam - echo ordered HTN - stable on current meds, continue
[2018-08-24] MEDS: KCL 10 MEQ IVPB 10 MEQ/100 ML INFUS.BAG IVPB SCH ×3 (10:53→13:26)
[2018-08-24] MEDS ORDERED: POTASSIUM PHOSPHATE 15 MM in DEXTROSE 5%-WATER - 250 ML IVPB ONE (11:16)
--- NOTE | 2018-08-24 11:45 | PN ---
Progress Note (short form) - Note Progress Note: Vital Signs - 24 hr abd pain ate without any problems no diarrhea 08/23/18 08/23/18 08/23/18 16:06 22:25 23:48 Temperature 97.9 F 97.9 F Pulse Rate 64 69 Pulse Rate [ 79 Apical] Respiratory 18 18 18 Rate Blood Pressure 144/97 133/82 Blood Pressure 147/83 [Right Arm] O2 Sat by Pulse 93 L 96 94 L Oximetry (%) 08/24/18 08/24/18 08/24/18 02:00 06:00 08:37 Temperature 98.1 F 98.1 F Pulse Rate 72 81 Pulse Rate [ Apical] Respiratory 18 18 18 Rate Blood Pressure 152/77 124/67 Blood Pressure [Right Arm] O2 Sat by Pulse 94 L Oximetry (%) 08/24/18 10:00 Temperature Pulse Rate 79 Pulse Rate [ Apical] Respiratory 20 Rate Blood Pressure 138/74 Blood Pressure [Right Arm] O2 Sat by Pulse Oximetry (%) Current Medications Generic Name Dose Route Start Last Admin Trade Name Freq PRN Reason Stop Dose Admin Amlodipine Besylate 10 mg 08/24/18 10:00 08/24/18 10:01 Norvasc - PO 10 mg DAILY [facility] Administration Ferrous Sulfate 325 mg 08/24/18 10:00 08/24/18 10:01 Feosol - PO 325 mg DAILY [facility] Administration Metronidazole 500 mg in 100 mls @ 100 mls/hr 08/23/18 23:15 08/24/18 10:01 Flagyl 500mg Premixed Ivpb - IVPB 100 mls/hr Q6H-IV [facility] Administration Cefazolin Sodium 1 gm in 50 mls @ 100 mls/hr 08/24/18 07:00 08/24/18 06:23 Ancef 1 Gm Premixed Ivpb - IVPB 100 mls/hr Q6H-IV [facility] Administration Potassium Chloride 10 meq in 100 mls @ 100 mls/hr 08/24/18 10:30 08/24/18 10: 53 Potassium Chloride 10 Meq Premix Ivpb - IVPB 08/24/18 13:29 100 mls/hr Q60M [facility] Administration Potassium Phosphate 15 mm/ 255 mls @ 63.75 mls/hr 08/24/18 11:16 08/24/18 11: 40 Dextrose IVPB 08/24/18 15:15 63.75 mls/hr ONCE ONE Administration 15 MM/4 HR Insulin Aspart 1 vial 08/24/18 07:00 08/24/18 06:23 Novolog Vial Sliding Scale - SQ 6 units ACHS [facility] Administration Protocol Lisinopril 10 mg 08/24/18 10:00 08/24/18 10:02 Prinivil PO 10 mg DAILY [facility] Administration Ranitidine HCl 150 mg 08/24/18 10:00 08/24/18 10:01 Zantac - PO 150 mg BID [facility] Administration Laboratory Results - last 24 hr 08/23/18 08/23/18 08/23/18 18:00 18:00 18:00 WBC 4.0 RBC 4.22 Hgb 9.6 L Hct 30.8 L MCV 73.0 L MCH 22.8 L MCHC 31.2 L RDW 15.4 Plt Count 221 MPV 8.6 Absolute Neuts (auto) 2.4 Total Counted 100 Neutrophils % 60.2 Neutrophils % (Manual) 57.0 Band Neutrophils % 11.0 Lymphocytes % 27.8 Lymphocytes % (Manual) 25.0 Monocytes % 7.6 Monocytes % (Manual) 5 Eosinophils % 4.0 Eosinophils % (Manual) 3.0 Basophils % 0.4 Nucleated RBC % 0 Hypochromia 1+ Toxic Granulation 1+ Platelet Estimate Adequate Platelet Comment No clumping noted Polychromasia 1+ Target Cells 1+ PT with INR 16.70 H INR 1.41 H PTT (Actin FS) 26.9 Sodium 149 H Potassium 2.4 L* Chloride 107 Carbon Dioxide 33 H Anion Gap 9 BUN 5 L Creatinine 0.5 L Creat Clearance w eGFR > 60 POC Glucometer Random Glucose 318 H* Hemoglobin A1c % Calcium 7.2 L Phosphorus 1.6 L Magnesium 1.3 L Total Bilirubin 0.4 AST 12 L ALT 8 L Alkaline Phosphatase 112 Creatine Kinase Creatine Kinase Index CK-MB (CK-2) Troponin I Total Protein 5.2 L Albumin 1.4 L Urine Color Urine Appearance Urine pH Ur Specific [place] Urine Protein Urine Glucose (UA) Urine Ketones Urine Blood Urine Nitrite Urine Bilirubin Urine Urobilinogen Ur Leukocyte Esterase Stool Occult Blood 08/23/18 08/23/18 08/23/18 18:02 18:15 18:40 WBC RBC Hgb Hct MCV MCH MCHC RDW Plt Count MPV Absolute Neuts (auto) Total Counted Neutrophils % Neutrophils % (Manual) Band Neutrophils % Lymphocytes % Lymphocytes % (Manual) Monocytes % Monocytes % (Manual) Eosinophils % Eosinophils % (Manual) Basophils % Nucleated RBC % Hypochromia Toxic Granulation Platelet Estimate Platelet Comment Polychromasia Target Cells PT with INR INR PTT (Actin FS) Sodium Potassium Chloride Carbon Dioxide Anion Gap BUN Creatinine Creat Clearance w eGFR POC Glucometer Random Glucose Hemoglobin A1c % Calcium Phosphorus Magnesium Total Bilirubin AST ALT Alkaline Phosphatase Creatine Kinase 152 Creatine Kinase Index 0.6 CK-MB (CK-2) < 1.0 Troponin I 0.06 H Total Protein Albumin Urine Color Ltyellow Urine Appearance Clear Urine pH 6.0 Ur Specific [place] 1.011 Urine Protein Negative Urine Glucose (UA) 3+ H Urine Ketones Negative Urine Blood Negative Urine Nitrite Negative Urine Bilirubin Negative Urine Urobilinogen 4.0 e.u/dl H Ur Leukocyte Esterase Negative Stool Occult Blood Negative 08/24/18 08/24/18 08/24/18 05:30 05:30 05:30 WBC 5.3 RBC 3.78 Hgb 8.7 L Hct 27.5 L MCV 72.6 L MCH 23.0 L MCHC 31.7 L RDW 14.9 Plt Count 224 MPV 8.9 Absolute Neuts (auto) Total Counted Neutrophils % Neutrophils % (Manual) Band Neutrophils % Lymphocytes % Lymphocytes % (Manual) Monocytes % Monocytes % (Manual) Eosinophils % Eosinophils % (Manual) Basophils % Nucleated RBC % Hypochromia Toxic Granulation Platelet Estimate Platelet Comment Polychromasia Target Cells PT with INR INR PTT (Actin FS) Sodium 147 H Potassium 2.1 L* Chloride 107 Carbon Dioxide 33 H Anion Gap 7 L BUN 4 L Creatinine 0.5 L Creat Clearance w eGFR > 60 POC Glucometer Random Glucose 304 H* Hemoglobin A1c % 13.4 H Calcium 6.8 L* Phosphorus 1.6 L Magnesium 1.8 Total Bilirubin 0.8 AST 10 L ALT 8 L Alkaline Phosphatase 105 Creatine Kinase Creatine Kinase Index CK-MB (CK-2) Troponin I Total Protein 4.8 L Albumin 1.3 L Urine Color Urine Appearance Urine pH Ur Specific [place] Urine Protein Urine Glucose (UA) Urine Ketones Urine Blood Urine Nitrite Urine Bilirubin Urine Urobilinogen Ur Leukocyte Esterase Stool Occult Blood 08/24/18 08/24/18 05:30 05:49 WBC RBC Hgb Hct MCV MCH MCHC RDW Plt Count MPV Absolute Neuts (auto) Total Counted Neutrophils % Neutrophils % (Manual) Band Neutrophils % Lymphocytes % Lymphocytes % (Manual) Monocytes % Monocytes % (Manual) Eosinophils % Eosinophils % (Manual) Basophils % Nucleated RBC % Hypochromia Toxic Granulation Platelet Estimate Platelet Comment Polychromasia Target Cells PT with INR INR PTT (Actin FS) Sodium Potassium Chloride Carbon Dioxide Anion Gap BUN Creatinine Creat Clearance w eGFR POC Glucometer 292 Random Glucose Hemoglobin A1c % Calcium Phosphorus Magnesium Total Bilirubin AST ALT Alkaline Phosphatase Creatine Kinase 127 Creatine Kinase Index CK-MB (CK-2) Troponin I 0.07 H Total Protein Albumin Urine Color Urine Appearance Urine pH Ur Specific [place] Urine Protein Urine Glucose (UA) Urine Ketones Urine Blood Urine Nitrite Urine Bilirubin Urine Urobilinogen Ur Leukocyte Esterase Stool Occult Blood S1 S2 RRR Lungs clear Abd-soft, tender LLQ, lower abd Ext- no edema no rash noted PLAN Aortic aneurysm-- Vascular eval Hypokalemia-- replace lytes repeat labs tomorrow Proctocolitis-- on iv antibiotics, iv fluids Problem List - Problems (1) Proctocolitis Code(s): K52.9 - NONINFECTIVE GASTROENTERITIS AND COLITIS, UNSPECIFIED (2) Hypokalemia Code(s): E87.6 - HYPOKALEMIA (3) Failure to thrive syndrome, adult Code(s): R62.7 - ADULT FAILURE TO THRIVE (4) Rectal bleeding Code(s): K62.5 - HEMORRHAGE OF ANUS AND RECTUM
--- NOTE | 2018-08-24 16:31 | CONS ---
GASTROINTESTINAL CONSULTATION DATE OF CONSULTATION: DATE OF DICTATION: 08/24/2018 HISTORY OF PRESENT ILLNESS: The patient is a 77-year-old female from [facility] with a past medical history of hypertension, hyperlipidemia, COPD, diabetes, dementia, depression, who was sent to the hospital with failure to thrive, 20-pound weight loss since June 2019. Patient is a poor historian. As per the records, she has had multiple episodes of watery diarrhea with generalized weakness. She currently denies any abdominal pain, nausea, vomiting, dysphagia, fevers, chills or urinary symptoms. PAST MEDICAL AND SURGICAL HISTORY: As listed in the HPI, with the addition of abdominal surgery. ALLERGIES: No known drug allergies. SOCIAL HISTORY: Former smoker. Does not currently smoke. Alcohol and drugs: Does not drink or . FAMILY HISTORY: Not able to obtain at this time. HOME MEDICATIONS: Reviewed include Norvasc, Colace, vitamin D, iron, , metformin, and ranitidine. REVIEW OF SYSTEMS: Negative, except for pertinent positives in the HPI. PHYSICAL EXAMINATION: Vital Signs: Temperature 98, pulse 79, blood pressure 138/74, respiratory rate 12, pulse oximetry 94. General: In no acute distress. HEENT: Anicteric sclera. Cardiovascular: S1, S2. Regular rate and rhythm. Lungs: Clear bilaterally. Abdomen: Soft. Nontender. Extremities: No edema. LABORATORIES: White blood cell count 5.3, hemoglobin and hematocrit 8.7 over 27, MCV 72, platelet count 224. INR 1.4. Sodium 147, potassium 2.1, BUN over creatinine 4 over 0.5, glucose 304, calcium 6.8. Total bilirubin 0.8, AST 10, ALT 8. Troponin 0.07. Cultures are pending. C difficile was ordered and is negative. She had an abdominal and pelvis CT scan which revealed acute proctocolitis, small bilateral effusions, multiple intramural and subserosal uterine leiomyomas, pedunculated leiomyoma and large ovary questionable or an enlarged lymph node in the left adnexa. MRI was recommended for further evaluation. Also, fusiform aneurysmal dilation of the partially imaged descending thoracic aorta with extension into the abdominal aorta. Chest CT was advised. Also, with diffuse steatosis. IMPRESSION: Failure to thrive with weight loss, as well as diarrhea, found to have acute proctocolitis, with associated electrolyte abnormalities. RECOMMENDATIONS: Continue antibiotics. She is currently on metronidazole for her proctocolitis. Calorie count. Once the acute process is corrected and she is medically cleared, she may benefit from diagnostic upper endoscopy. Would also obtain a swallow evaluation to exclude dysphagia as an etiology of her failure to thrive. Stool cultures and follow up blood and urine culture. CHE JACOB DO [id number]
[2018-08-24 19:07] LABS: ANION GAP 8 MMOL/L (8-16); BLOOD UREA NITROGEN 3 mg/dL (7-18); CHLORIDE 107 mmol/L (98-107); CO2 33 mmol/L (21-32); CREATININE 0.5 mg/dL (0.55-1.3); GLUCOSE,RANDOM 203 mg/dL (74-106); SODIUM 148 mmol/L (136-145)
[2018-08-24 19:08] LABS: CALCIUM 6.8 mg/dL (8.5-10.1); POTASSIUM 2.3 mmol/L (3.5-5.1)
[2018-08-24 22:36] LABS: ALBUMIN 1.2 g/dl (3.4-5.0); ALK PHOS 105 U/L (45-117); ANION GAP 9 MMOL/L (8-16); BILIRUBIN,TOTAL 0.5 mg/dL (0.2-1); BLOOD UREA NITROGEN 4 mg/dL (7-18); CHLORIDE 108 mmol/L (98-107); CO2 31 mmol/L (21-32); CREATININE 0.5 mg/dL (0.55-1.3); GLUCOSE,RANDOM 213 mg/dL (74-106); SGOT/AST 16 U/L (15-37); SGPT/ALT 10 U/L (13-61); SODIUM 148 mmol/L (136-145); TOT PROT 4.5 g/dl (6.4-8.2)
[2018-08-24 22:38] LABS: POTASSIUM 2.6 mmol/L (3.5-5.1)
[2018-08-24 22:39] LABS: CALCIUM 6.3 mg/dL (8.5-10.1)
[2018-08-25] MEDS ORDERED: KCL 10 MEQ IVPB 10 MEQ/100 ML INFUS.BAG IVPB SCH (01:45)
[2018-08-25] MEDS: CEFAZOLIN 1 GM/D5W 1 GM/50 ML BAG IVPB SCH ×2 (02:12→10:49)
[2018-08-25] MEDS: INSULIN SLIDING SCALE (NOVOLOG) 1 VIAL SQ SCH ×4 (06:20→23:06)
--- NOTE | 2018-08-25 07:24 | PN ---
Progress Note, Physician Chief Complaint: NO NEW COMPLAINTS , DOING OK TODAY - Current Medication List Current Medications: Active Medications Amlodipine Besylate (Norvasc -) 10 mg PO DAILY [facility] Last Admin: 08/24/18 10:01 Dose: 10 mg Ferrous Sulfate (Feosol -) 325 mg PO DAILY [facility] Last Admin: 08/24/18 10:01 Dose: 325 mg Metronidazole (Flagyl 500mg Premixed Ivpb -) 500 mg in 100 mls @ 100 mls/hr IVPB Q6H-IV [facility] Last Admin: 08/25/18 02:12 Dose: 100 mls/hr Cefazolin Sodium (Ancef 1 Gm Premixed Ivpb -) 1 gm in 50 mls @ 100 mls/hr IVPB Q6H-IV [facility] Last Admin: 08/25/18 02:12 Dose: 100 mls/hr Insulin Aspart (Novolog Vial Sliding Scale -) 1 vial SQ ACHS [facility]; Protocol Last Admin: 08/25/18 06:20 Dose: Not Given Lisinopril (Prinivil) 10 mg PO DAILY [facility] Last Admin: 08/24/18 10:02 Dose: 10 mg Ranitidine HCl (Zantac -) 150 mg PO BID [facility] Last Admin: 08/24/18 22:24 Dose: Not Given - Objective Vital Signs: Vital Signs Temperature 98.3 F 08/25/18 06:00 Pulse Rate 76 08/25/18 06:00 Respiratory Rate 20 08/25/18 06:00 Blood Pressure 116/76 08/25/18 06:00 O2 Sat by Pulse Oximetry (%) 94 L 08/24/18 20:40 Constitutional: Yes: Well Nourished, No Distress, Calm Eyes: Yes: WNL HENT: Yes: WNL Neck: Yes: WNL Cardiovascular: Yes: WNL, Regular Rate and Rhythm Respiratory: Yes: WNL, Regular, CTA Bilaterally Gastrointestinal: Yes: WNL, Normal Bowel Sounds, Soft Musculoskeletal: Yes: WNL Extremities: Yes: WNL Edema: No Labs: CBC, BMP 08/24/18 05:30 INR, PTT INR 1.41 (0.83-1.09) H 08/23/18 18:00 Problem List - Problems (1) Failure to thrive syndrome, adult Assessment/Plan: - C/W ABX - DIET TOLERATED - F/U CBC - CALORIE COUNT ;ENCOURAGE PO INTAKE / ENSURE TID Code(s): R62.7 - ADULT FAILURE TO THRIVE (2) Proctocolitis Code(s): K52.9 - NONINFECTIVE GASTROENTERITIS AND COLITIS, UNSPECIFIED
[2018-08-25 08:09] LABS: ANION GAP 11 MMOL/L (8-16); BLOOD UREA NITROGEN 4 mg/dL (7-18); CHLORIDE 109 mmol/L (98-107); CO2 32 mmol/L (21-32); CREATININE 0.5 mg/dL (0.55-1.3); GLUCOSE,RANDOM 141 mg/dL (74-106); MAGNESIUM 1.4 mg/dL (1.8-2.4); PHOSPHOROUS 2.6 mg/dL (2.5-4.9); SODIUM 152 mmol/L (136-145)
[2018-08-25 08:13] LABS: CALCIUM 6.5 mg/dL (8.5-10.1); POTASSIUM 2.3 mmol/L (3.5-5.1)
--- NOTE | 2018-08-25 10:04 | PN ---
Progress Note (short form) - Note Progress Note: VAscular Surgery CT abd and pelvis reviewed. Aortic aneurysm size at best is 4cm. No need for any surgical intervention at this time. Indications for procedure would be greater than 6cm in the descending aorta, and greater than 5cm in the infrarenal portion. Medical management for now. Can surveillance every 6 months with ultrasound. Randy Trejo DO
[2018-08-25] MEDS ORDERED: POTASSIUM CHLORIDE ORAL LIQUID 20 MEQ/15 ML PO ONE (10:30)
[2018-08-25] MEDS ORDERED: MAGNESIUM SULF 50% (8.12 MEQ/2 ML-1 GM VIAL) IVPB ONE (10:45)
[2018-08-25] MEDS: amLODIPine BESYLATE 10 MG TABLET (FP) PO SCH (10:49)
[2018-08-25] MEDS: FERROUS SO4 325 MG TABLET (FP) PO SCH (10:49)
[2018-08-25] MEDS: KCL 10 MEQ IVPB 10 MEQ/100 ML INFUS.BAG IVPB SCH ×5 (10:51→23:22)
[2018-08-25] MEDS: LISINOPRIL 10 MG TABLET (FP) PO SCH (10:51)
[2018-08-25] MEDS: RANITIDINE HCL 150 MG TABLET (FP) PO SCH ×2 (10:51→23:22)
--- NOTE | 2018-08-25 11:06 | PN ---
Progress Note (short form) - Note Progress Note: abd pain has diarrhea Vital Signs - 24 hr 08/24/18 08/24/18 08/24/18 14:10 20:40 22:00 Temperature 98.2 F 99.9 F H Pulse Rate 83 83 Respiratory 20 20 Rate Blood Pressure 133/75 136/69 O2 Sat by Pulse 94 L Oximetry (%) 08/25/18 08/25/18 06:00 07:47 Temperature 98.3 F Pulse Rate 76 Respiratory 20 20 Rate Blood Pressure 116/76 O2 Sat by Pulse 96 Oximetry (%) Current Medications Generic Name Dose Route Start Last Admin Trade Name Freq PRN Reason Stop Dose Admin Amlodipine Besylate 10 mg 08/24/18 10:00 08/25/18 10:49 Norvasc - PO 10 mg DAILY [facility] Administration Ferrous Sulfate 325 mg 08/24/18 10:00 08/25/18 10:49 Feosol - PO 325 mg DAILY [facility] Administration Metronidazole 500 mg in 100 mls @ 100 mls/hr 08/23/18 23:15 08/25/18 02:12 Flagyl 500mg Premixed Ivpb - IVPB 100 mls/hr Q6H-IV [facility] Administration Potassium Chloride 10 meq in 100 mls @ 100 mls/hr 08/25/18 10:30 08/25/18 10: 51 Potassium Chloride 10 Meq Premix Ivpb - IVPB 08/25/18 13:29 100 mls/hr Q60M [facility] Administration Potassium Chloride/Sodium Chloride 20 meq in 1,000 mls @ 83 mls/hr 08/25/18 11 :15 Ns+20 Meq Kcl - IV ASDIR [facility] Insulin Aspart 1 vial 08/24/18 07:00 08/25/18 06:20 Novolog Vial Sliding Scale - SQ Not Given ACHS [facility] Protocol Lisinopril 10 mg 08/24/18 10:00 08/25/18 10:51 Prinivil PO 10 mg DAILY [facility] Administration Ranitidine HCl 150 mg 08/24/18 10:00 08/25/18 10:51 Zantac - PO 150 mg BID [facility] Administration Laboratory Results - last 24 hr 08/24/18 08/24/18 08/24/18 11:50 17:25 17:30 Sodium 148 H Potassium 2.3 L* Chloride 107 Carbon Dioxide 33 H Anion Gap 8 BUN 3 L Creatinine 0.5 L Creat Clearance w eGFR > 60 POC Glucometer 114 206 Random Glucose 203 H Calcium 6.8 L* Phosphorus Magnesium Total Bilirubin AST ALT Alkaline Phosphatase Total Protein Albumin 08/24/18 08/24/18 08/25/18 21:31 21:50 05:45 Sodium 148 H 152 H Potassium 2.6 L* 2.3 L* Chloride 108 H 109 H Carbon Dioxide 31 32 Anion Gap 9 11 BUN 4 L 4 L Creatinine 0.5 L 0.5 L Creat Clearance w eGFR > 60 > 60 POC Glucometer 214 Random Glucose 213 H 141 H Calcium 6.3 L* 6.5 L* Phosphorus 2.6 Magnesium 1.4 L Total Bilirubin 0.5 AST 16 ALT 10 L Alkaline Phosphatase 105 Total Protein 4.5 L Albumin 1.2 L 08/25/18 05:51 Sodium Potassium Chloride Carbon Dioxide Anion Gap BUN Creatinine Creat Clearance w eGFR POC Glucometer 134 Random Glucose Calcium Phosphorus Magnesium Total Bilirubin AST ALT Alkaline Phosphatase Total Protein Albumin S1 S2 RRR Lungs clear Abd-soft, tender LLQ, lower abd Ext- no edema no rash noted PLAN Aortic aneurysm-- Vascular eval noted, just follow-up Hypokalemia-- replace lytes repeat labs tomorrow Proctocolitis-- on iv antibiotics, iv fluids check stool for C. difficile Problem List - Problems (1) Proctocolitis Code(s): K52.9 - NONINFECTIVE GASTROENTERITIS AND COLITIS, UNSPECIFIED (2) Hypokalemia Code(s): E87.6 - HYPOKALEMIA (3) Failure to thrive syndrome, adult Code(s): R62.7 - ADULT FAILURE TO THRIVE (4) Rectal bleeding Code(s): K62.5 - HEMORRHAGE OF ANUS AND RECTUM
--- NOTE | 2018-08-25 11:12 | PN ---
Progress Note (short form) - Note Progress Note: Chief Complaint: weakness s: no chest pain, palps, dizziness, lightheadedness Vital Signs: Vital Signs Period Temp Pulse Resp BP Sys/Luna Pulse Ox Last 24 Hr 97.9 F-99.9 F 76-89 18-20 116-136/69-76 94-96 Constitutional: Yes: Well Nourished, No Distress, Calm Eyes: Yes: Conjunctiva Clear, EOM Intact HENT: Yes: Atraumatic, Normocephalic Neck: Yes: Supple, Trachea Midline Respiratory: Yes: Regular, CTA Bilaterally Gastrointestinal: Yes: Normal Bowel Sounds Cardiovascular: Yes: Regular Rate and Rhythm JVD: No Carotid Bruit: No Heart Sounds: Yes: S1, S2 Murmur: No: Systolic Murmur Musculoskeletal: No: Back Pain Extremities: No: Cold Edema: No Peripheral Pulses WNL: Yes Peripheral Pulses: 2+ Left Doralis Pedis, 2+ Right Dorsalis Pedis Neurological: Yes: Alert, Confusion Psychiatric: No: Agitated Current Medications Amlodipine Besylate (Norvasc -) 10 mg PO DAILY [facility] Last Admin: 08/25/18 10:49 Dose: 10 mg Ferrous Sulfate (Feosol -) 325 mg PO DAILY [facility] Last Admin: 08/25/18 10:49 Dose: 325 mg Metronidazole (Flagyl 500mg Premixed Ivpb -) 500 mg in 100 mls @ 100 mls/hr IVPB Q6H-IV [facility] Last Admin: 08/25/18 02:12 Dose: 100 mls/hr Potassium Chloride (Potassium Chloride 10 Meq Premix Ivpb -) 10 meq in 100 mls @ 100 mls/hr IVPB Q60M [facility] Stop: 08/25/18 13:29 Last Admin: 08/25/18 10:51 Dose: 100 mls/hr Potassium Chloride/Sodium Chloride (Ns+20 Meq Kcl -) 20 meq in 1,000 mls @ 83 mls/hr IV ASDIR [facility] Insulin Aspart (Novolog Vial Sliding Scale -) 1 vial SQ ACHS [facility]; Protocol Last Admin: 08/25/18 06:20 Dose: Not Given Lisinopril (Prinivil) 10 mg PO DAILY [facility] Last Admin: 08/25/18 10:51 Dose: 10 mg Ranitidine HCl (Zantac -) 150 mg PO BID [facility] Last Admin: 08/25/18 10:51 Dose: 150 mg Assessment/Plan EKG: sinus, PACs, PVC, no ischemic changes CXR: no acute process tele: sinus, PACs, PVCs CT A/P: acute proctocolitis, partially imaged descending thoracic aorta with aneurysmal dilation at least 4 cm, mural thrombus along dilated segment, extends into suprarenal and infrarenal aorta with max diameter 3.4 cm, mural thrombus along l lateral aspect of infrarenal aorta, extensive atheroscloerotic vascular calcifications are seen, small john pleural effusions Failure to thrive, weakness - manage per primary, on abx, lytes repletion elevated troponin - indeterminate range, flat trend, unremarkable EKG - unlikely ACS abdominal and thoracic aorta aneurysm - CT chest pending for further evaluation, not well visualized but reportedly > 4 cm thoracic - vascular consulted, recommended outpatient surveillance with ultrasound - echo ordered as well ?aortic stenosis - per report overnight, patient not aware of hx, poor historian - did not auscultate murmur c/w on exam - echo ordered HTN - stable on current meds, continue [facility] *[facility]* Consultation-Cardiology Patient Name: HENNY NASH Date of : 1940 Patient Status: Inpatient Attending Provider: Jessica Lopez Date: 08/24/18 10:43 Initialization Date: 08/24/18 10:43 Consult Consult Specialty:: Cardiology Referred by:: Curtis Reason for Consultation:: aortic aneurysm - History of Present Illness Chief Complaint: weakness History of Present Illness: 77F h/o HTN, HLD, DM, COPD, dementia p/w failure to thrive, weight loss, weakness. Also diarrhea, weakness. CT showed calcified aorta, abd and thoracic aneurysmal dilation and acute proctocolitis. Undergoing malignancy workup. Troponin 0.06->0.07. Patient unable to give further hx, says she feels well, no chest pain, palps, dizziness, lightheadedness. - Past Medical History ...: No - Alcohol/Substance Use Hx Alcohol Use: No - Smoking History Smoking history: Never smoked Have you smoked in the past 12 months: No Home Medications - Allergies Allergies/Adverse Reactions: Allergies Allergy/AdvReac Type Severity Reaction Status Date / Time No Known Allergies Allergy Verified 08/23/18 16:15 - Home Medications Home Medications: Ambulatory Orders Amlodipine Besylate [Norvasc -] 10 mg PO DAILY 08/23/18 Docusate Sodium [Colace] 200 mg PO DAILY 08/23/18 Ergocalciferol (Vitamin D2) [Vitamin D2] 50,000 unit PO WEEKLY 08/23/18 Ferrous Sulfate [Feosol] 325 mg PO DAILY 08/23/18 Lisinopril [Prinivil] 10 mg PO DAILY 08/23/18 Metformin HCl [Metformin HCl ER] 500 mg PO BID 08/23/18 Ranitidine [Zantac -] 150 mg PO BID 08/23/18 Family Disease History - Family Disease History Family History: Unable to Obtain Review of Systems - Review of Systems Constitutional: reports: No Symptoms Eyes: reports: No Symptoms HENT: reports: No Symptoms Neck: reports: No Symptoms Cardiovascular: reports: No Symptoms Respiratory: reports: No Symptoms Gastrointestinal: reports: No Symptoms Genitourinary: reports: No Symptoms Musculoskeletal: reports: No Symptoms Integumentary: reports: No Symptoms Neurological: reports: No Symptoms Endocrine: reports: No Symptoms Hematology/Lymphatic: reports: No Symptoms Psychiatric: reports: No Symptoms Vital Signs: Vital Signs Temperature 98.1 F 08/24/18 06:00 Pulse Rate 81 08/24/18 06:00 Respiratory Rate 18 08/24/18 08:37 Blood Pressure 124/67 08/24/18 06:00 O2 Sat by Pulse Oximetry (%) 94 L 08/24/18 08:37 Constitutional: Yes: Well Nourished, No Distress, Calm Eyes: Yes: Conjunctiva Clear, EOM Intact HENT: Yes: Atraumatic, Normocephalic Neck: Yes: Supple, Trachea Midline Respiratory: Yes: Regular, CTA Bilaterally Gastrointestinal: Yes: Normal Bowel Sounds Cardiovascular: Yes: Regular Rate and Rhythm JVD: No Carotid Bruit: No Heart Sounds: Yes: S1, S2 Murmur: No: Systolic Murmur Musculoskeletal: No: Back Pain Extremities: No: Cold Edema: No Peripheral Pulses WNL: Yes Peripheral Pulses: 2+ Left Doralis Pedis, 2+ Right Dorsalis Pedis Neurological: Yes: Alert, Confusion Psychiatric: No: Agitated - Other Data Labs, Other Data: CBC, BMP 08/24/18 05:30 08/24/18 05:30 INR, PTT INR 1.41 (0.83-1.09) H 08/23/18 18:00 Troponin, BNP 08/23/18 08/24/18 18:02 05:30 Troponin I 0.06 H 0.07 H Troponin, BNP 08/23/18 08/24/18 18:02 05:30 Troponin I 0.06 H 0.07 H Assessment/Plan EKG: sinus, PACs, PVC, no ischemic changes CXR: no acute process tele: sinus, PACs, PVCs CT A/P: acute proctocolitis, partially imaged descending thoracic aorta with aneurysmal dilation at least 4 cm, mural thrombus along dilated segment, extends into suprarenal and infrarenal aorta with max diameter 3.4 cm, mural thrombus along l lateral aspect of infrarenal aorta, extensive atheroscloerotic vascular calcifications are seen, small john pleural effusions Failure to thrive, weakness - manage per primary, on abx, lytes repletion elevated troponin - indeterminate range, flat trend, unremarkable EKG - unlikely ACS abdominal and thoracic aorta aneurysm - CT chest pending for further evaluation, not well visualized but reportedly > 4 cm thoracic - vascular consulted - echo ordered ?aortic stenosis - per report overnight, patient not aware of hx, poor historian - did not auscultate murmur c/w on exam - echo ordered HTN - stable on current meds, continue
[2018-08-25] MEDS: SODIUM CHLORIDE 0.9%/KCL 20 MEQ/1,000 ML INFUS.BAG IV SCH (12:37)
[2018-08-25] MEDS: BACITRACIN/POLYMYXIN B SULFATE 15 GM TUBE TP SCH ×2 (14:00→23:25)
[2018-08-25 17:39] LABS: ANION GAP 8 MMOL/L (8-16); BLOOD UREA NITROGEN 4 mg/dL (7-18); CHLORIDE 107 mmol/L (98-107); CO2 32 mmol/L (21-32); CREATININE 0.5 mg/dL (0.55-1.3); GLUCOSE,RANDOM 257 mg/dL (74-106); SODIUM 147 mmol/L (136-145)
[2018-08-25 17:41] LABS: CALCIUM 6.4 mg/dL (8.5-10.1); POTASSIUM 2.6 mmol/L (3.5-5.1)
--- NOTE | 2018-08-25 17:52 | PN ---
Progress Note (short form) - Note Progress Note: called by nurse to evening team for low k and pt has 2.6 and unable to eat she has already receive the 3 runs of 10 will start 3 runs of 10 k and repeat k in am
--- NOTE | 2018-08-25 19:31 | EKG ---
Test Reason : Blood Pressure : / mmHG Vent. Rate : 080 BPM Atrial Rate : 080 BPM P-R Int : 128 ms QRS Dur : 086 ms QT Int : 552 ms P-R-T Axes : 043 -18 001 degrees QTc Int : 636 ms SINUS RHYTHM WITH PREMATURE ATRIAL COMPLEXES AND PREMATURE VENTRICULAR COMPLEXES WITH ABERRANT CONDUCTION NONSPECIFIC ST AND T WAVE ABNORMALITY ABNORMAL ECG NO PREVIOUS ECGS AVAILABLE Confirmed by OLENA SIMEON MD ([id number]) on 08/25/2018 7:30:39 PM Referred By: Confirmed By:OLENA SIMEON MD
[2018-08-26] MEDS: KCL 10 MEQ IVPB 10 MEQ/100 ML INFUS.BAG IVPB SCH ×5 (03:50→15:01)
[2018-08-26] MEDS: INSULIN SLIDING SCALE (NOVOLOG) 1 VIAL SQ SCH ×4 (06:32→21:42)
--- NOTE | 2018-08-26 07:44 | PN ---
Progress Note, Physician Chief Complaint: NO NEW COMPLAINTS , DOING OK TODAY - NO FURTHER EPISODE OF [facility] - Current Medication List Current Medications: Active Medications Amlodipine Besylate (Norvasc -) 10 mg PO DAILY [facility] Last Admin: 08/25/18 10:49 Dose: 10 mg Bacitracin/Polymyxin B Sulfate (Polysporin Ointment -) 1 applic TP BID [facility] Last Admin: 08/25/18 23:25 Dose: 1 applic Ferrous Sulfate (Feosol -) 325 mg PO DAILY [facility] Last Admin: 08/25/18 10:49 Dose: 325 mg Metronidazole (Flagyl 500mg Premixed Ivpb -) 500 mg in 100 mls @ 100 mls/hr IVPB Q6H-IV [facility] Last Admin: 08/26/18 03:51 Dose: 100 mls/hr Potassium Chloride/Sodium Chloride (Ns+20 Meq Kcl -) 20 meq in 1,000 mls @ 83 mls/hr IV ASDIR [facility] Last Admin: 08/25/18 12:37 Dose: 83 mls/hr Insulin Aspart (Novolog Vial Sliding Scale -) 1 vial SQ ACHS [facility]; Protocol Last Admin: 08/26/18 06:32 Dose: Not Given Lisinopril (Prinivil) 10 mg PO DAILY [facility] Last Admin: 08/25/18 10:51 Dose: 10 mg Ranitidine HCl (Zantac -) 150 mg PO BID [facility] Last Admin: 08/25/18 23:22 Dose: Not Given - Objective Vital Signs: Vital Signs Temperature 98.8 F 08/26/18 02:00 Pulse Rate 80 08/26/18 02:00 Respiratory Rate 18 08/26/18 02:00 Blood Pressure 113/69 08/26/18 02:00 O2 Sat by Pulse Oximetry (%) 96 08/25/18 21:00 Constitutional: Yes: Well Nourished, No Distress, Calm Eyes: Yes: WNL HENT: Yes: WNL Neck: Yes: WNL, Supple Cardiovascular: Yes: WNL, Regular Rate and Rhythm Respiratory: Yes: WNL, Regular, CTA Bilaterally Gastrointestinal: Yes: WNL, Normal Bowel Sounds, Soft Musculoskeletal: Yes: WNL Extremities: Yes: WNL Edema: No Labs: CBC, BMP 08/24/18 05:30 INR, PTT INR 1.41 (0.83-1.09) H 08/23/18 18:00 Problem List - Problems (1) Failure to thrive syndrome, adult Assessment/Plan: - C/W ABX - DIET TOLERATED - ADVANCED TO DIABETIC SOFT DIET - F/U CBC - CALORIE COUNT ;ENCOURAGE PO INTAKE / ENSURE TID Code(s): R62.7 - ADULT FAILURE TO THRIVE (2) Proctocolitis Code(s): K52.9 - NONINFECTIVE GASTROENTERITIS AND COLITIS, UNSPECIFIED
[2018-08-26 08:08] LABS: ANION GAP 7 MMOL/L (8-16); BLOOD UREA NITROGEN 3 mg/dL (7-18); CHLORIDE 108 mmol/L (98-107); CO2 33 mmol/L (21-32); CREATININE 0.5 mg/dL (0.55-1.3); GLUCOSE,RANDOM 132 mg/dL (74-106); MAGNESIUM 1.6 mg/dL (1.8-2.4); SODIUM 148 mmol/L (136-145)
[2018-08-26 08:23] LABS: CALCIUM 6.7 mg/dL (8.5-10.1); POTASSIUM 2.6 mmol/L (3.5-5.1)
[2018-08-26] MEDS: FERROUS SO4 325 MG TABLET (FP) PO SCH (09:24)
[2018-08-26] MEDS: LISINOPRIL 10 MG TABLET (FP) PO SCH (09:24)
[2018-08-26] MEDS: BACITRACIN/POLYMYXIN B SULFATE 15 GM TUBE TP SCH (09:24)
[2018-08-26] MEDS: amLODIPine BESYLATE 10 MG TABLET (FP) PO SCH (09:24)
[2018-08-26] MEDS: RANITIDINE HCL 150 MG TABLET (FP) PO SCH ×2 (09:24→21:34)
--- NOTE | 2018-08-26 10:28 | PN ---
Progress Note (short form) - Note Progress Note: pt seen/ examined chart reviewed. awake and comfortable diarrhea improved Mild abdominal discomfort present afebrile Vascular consult noted And appreciated Vital Signs Temp 98.8 F 08/26/18 02:00 Pulse 83 08/26/18 06:00 Resp 18 08/26/18 06:00 BP 118/56 L 08/26/18 06:00 Pulse Ox 96 08/25/18 21:00 Intake & Output 08/25/18 08/25/18 08/26/18 11:59 23:59 11:59 Intake Total 1424 244 5725 Balance 3423 184 9096 Intake: IV 830 166 581 1/2NS+20MEQ KCL 20 meq In 830 1,000 ml @ 83 mls/hr IV ASDIR [facility] Rx#:[id number] NS+20 MEQ KCL - 20 meq In 166 581 1,000 ml @ 83 mls/hr IV ASDIR [facility] Rx#:[id number] IVPB 400 500 500 Oral 120 Other: Voiding Method Diaper Diaper Incontinent # Unmeasured Voids Void 3 2 2 Bowel Movement Yes # Bowel Movements 1 2 Active Medications Amlodipine Besylate (Norvasc -) 10 mg PO DAILY [facility] Last Admin: 08/26/18 09:24 Dose: 10 mg Bacitracin/Polymyxin B Sulfate (Polysporin Ointment -) 1 applic TP BID [facility] Last Admin: 08/26/18 09:24 Dose: 1 applic Enoxaparin Sodium (Lovenox -) 40 mg SQ DAILY [facility] Ferrous Sulfate (Feosol -) 325 mg PO DAILY [facility] Last Admin: 08/26/18 09:24 Dose: 325 mg Metronidazole (Flagyl 500mg Premixed Ivpb -) 500 mg in 100 mls @ 100 mls/hr IVPB Q6H-IV [facility] Last Admin: 08/26/18 08:57 Dose: 100 mls/hr Potassium Chloride/Sodium Chloride (Ns+20 Meq Kcl -) 20 meq in 1,000 mls @ 83 mls/hr IV ASDIR [facility] Last Admin: 08/25/18 12:37 Dose: 83 mls/hr Potassium Chloride (Potassium Chloride 10 Meq Premix Ivpb -) 10 meq in 100 mls @ 100 mls/hr IVPB Q60M [facility] Stop: 08/26/18 14:29 Insulin Aspart (Novolog Vial Sliding Scale -) 1 vial SQ ACHS [facility]; Protocol Last Admin: 08/26/18 06:32 Dose: Not Given Lisinopril (Prinivil) 10 mg PO DAILY [facility] Last Admin: 08/26/18 09:24 Dose: 10 mg Magnesium Sulfate (Magnesium Sulfate) 2 gm IVPB ONCE ONE Stop: 08/26/18 10:24 Ranitidine HCl (Zantac -) 150 mg PO BID [facility] Last Admin: 08/26/18 09:24 Dose: 150 mg CBC, BMP 08/24/18 05:30 08/26/18 06:48 Microbiology 08/23/18 18:15 Urine Culture - Final Urine - Urine Clean Catch Escherichia Coli 08/24/18 01:45 Blood Culture - Preliminary Blood - Peripheral Venous NO GROWTH OBTAINED AFTER 48 HOURS, INCUBATION TO CONTINUE FOR 3 DAYS. 08/24/18 01:45 Blood Culture - Preliminary Blood - Peripheral Venous NO GROWTH OBTAINED AFTER 48 HOURS, INCUBATION TO CONTINUE FOR 3 DAYS. Physical exam awake/comfortable in no distress S1 S2 RRR Lungs clear Abd-soft,Mild tenderness--- left lower quadrant. No rigidity or rebound. Bowel sounds present Ext- no edema neuro--- awake PLAN supplement k/ mag dvt prophylaxis oob - chair Aortic aneurysm-- observe Hypokalemia-- replace lytes---repeat BMP later this evening and tomorrow continue IV antibiotics Fluids discussed with nursing staff Will follow Problem List - Problems (1) Proctocolitis Code(s): K52.9 - NONINFECTIVE GASTROENTERITIS AND COLITIS, UNSPECIFIED (2) Hypokalemia Code(s): E87.6 - HYPOKALEMIA (3) Failure to thrive syndrome, adult Code(s): R62.7 - ADULT FAILURE TO THRIVE (4) Rectal bleeding Code(s): K62.5 - HEMORRHAGE OF ANUS AND RECTUM
[2018-08-26] MEDS ORDERED: MAGNESIUM SULF 50% (8.12 MEQ/2 ML-1 GM VIAL) IVPB ONE (11:00)
[2018-08-26] MEDS: ENOXAPARIN NA (PORCINE) 40 MG/0.4 ML DISP.SYRIN SQ SCH (11:31)
--- NOTE | 2018-08-26 12:02 | PN ---
Progress Note (short form) - Note Progress Note: Chief Complaint: weakness s: no chest pain, palps, dizziness, lightheadedness Vital Signs: Vital Signs Period Temp Pulse Resp BP Sys/Luna Pulse Ox Last 24 Hr 98 F-98.8 F 79-96 16-20 113-144/56-84 96 Constitutional: Yes: Well Nourished, No Distress, Calm Eyes: Yes: Conjunctiva Clear, EOM Intact HENT: Yes: Atraumatic, Normocephalic Neck: Yes: Supple, Trachea Midline Respiratory: Yes: Regular, CTA Bilaterally Gastrointestinal: Yes: Normal Bowel Sounds Cardiovascular: Yes: Regular Rate and Rhythm JVD: No Carotid Bruit: No Heart Sounds: Yes: S1, S2 Murmur: No: Systolic Murmur Musculoskeletal: No: Back Pain Extremities: No: Cold Edema: No Peripheral Pulses WNL: Yes Peripheral Pulses: 2+ Left Doralis Pedis, 2+ Right Dorsalis Pedis Neurological: Yes: Alert, Confusion Psychiatric: No: Agitated Current Medications Amlodipine Besylate (Norvasc -) 10 mg PO DAILY [facility] Last Admin: 08/26/18 09:24 Dose: 10 mg Bacitracin/Polymyxin B Sulfate (Polysporin Ointment -) 1 applic TP BID [facility] Last Admin: 08/26/18 09:24 Dose: 1 applic Enoxaparin Sodium (Lovenox -) 40 mg SQ DAILY [facility] Last Admin: 08/26/18 11:31 Dose: 40 mg Ferrous Sulfate (Feosol -) 325 mg PO DAILY [facility] Last Admin: 08/26/18 09:24 Dose: 325 mg Metronidazole (Flagyl 500mg Premixed Ivpb -) 500 mg in 100 mls @ 100 mls/hr IVPB Q6H-IV [facility] Last Admin: 08/26/18 08:57 Dose: 100 mls/hr Potassium Chloride/Sodium Chloride (Ns+20 Meq Kcl -) 20 meq in 1,000 mls @ 83 mls/hr IV ASDIR [facility] Last Admin: 08/25/18 12:37 Dose: 83 mls/hr Potassium Chloride (Potassium Chloride 10 Meq Premix Ivpb -) 10 meq in 100 mls @ 100 mls/hr IVPB Q60M [facility] Stop: 08/26/18 14:29 Last Admin: 08/26/18 11:10 Dose: 100 mls/hr Insulin Aspart (Novolog Vial Sliding Scale -) 1 vial SQ ACHS [facility]; Protocol Last Admin: 08/26/18 06:32 Dose: Not Given Lisinopril (Prinivil) 10 mg PO DAILY [facility] Last Admin: 08/26/18 09:24 Dose: 10 mg Ranitidine HCl (Zantac -) 150 mg PO BID [facility] Last Admin: 08/26/18 09:24 Dose: 150 mg Assessment/Plan EKG: sinus, PACs, PVC, no ischemic changes CXR: no acute process tele: sinus, PACs, PVCs CT A/P: acute proctocolitis, partially imaged descending thoracic aorta with aneurysmal dilation at least 4 cm, mural thrombus along dilated segment, extends into suprarenal and infrarenal aorta with max diameter 3.4 cm, mural thrombus along l lateral aspect of infrarenal aorta, extensive atheroscloerotic vascular calcifications are seen, small john pleural effusions Failure to thrive, weakness - manage per primary, on abx, lytes repletion elevated troponin - indeterminate range, flat trend, unremarkable EKG - unlikely ACS abdominal and thoracic aorta aneurysm - CT chest pending for further evaluation, not well visualized but reportedly > 4 cm thoracic - vascular consulted, recommended outpatient surveillance with ultrasound - echo ordered as well ?aortic stenosis - per report, patient not aware of hx, poor historian - did not auscultate murmur c/w on exam - echo ordered HTN - stable on current meds, continue
[2018-08-26] MEDS: SODIUM CHLORIDE 0.9%/KCL 20 MEQ/1,000 ML INFUS.BAG IV SCH (12:07)
[2018-08-26 17:52] LABS: ANION GAP 8 MMOL/L (8-16); BLOOD UREA NITROGEN 3 mg/dL (7-18); CHLORIDE 109 mmol/L (98-107); CO2 30 mmol/L (21-32); CREATININE 0.5 mg/dL (0.55-1.3); GLUCOSE,RANDOM 201 mg/dL (74-106); POTASSIUM 3.3 mmol/L (3.5-5.1); SODIUM 147 mmol/L (136-145)
[2018-08-26 17:53] LABS: CALCIUM 6.7 mg/dL (8.5-10.1)
[2018-08-27] MEDS: BACITRACIN/POLYMYXIN B SULFATE 15 GM TUBE TP SCH ×3 (00:33→22:29)
[2018-08-27] MEDS: INSULIN SLIDING SCALE (NOVOLOG) 1 VIAL SQ SCH ×4 (06:27→21:54)
[2018-08-27 07:09] LABS: BASO % 0.4 % (0-2.0); EOS % 4.5 % (0-4.5); HEMATOCRIT 27.1 % (32.4-45.2); HEMOGLOBIN 8.5 GM/dL (10.7-15.3); LYMPH % 24.5 % (8-40); MCH 22.9 pg (25.7-33.7); MCHC 31.5 g/dl (32.0-36.0); MEAN CELL VOLUME 72.7 fl (80-96); MEAN PLT VOLUME 8.8 fl (7.5-11.1); MONO % 6.8 % (3.8-10.2); NEUT % 63.8 % (42.8-82.8); PLATELET COUNT 250 K/MM3 (134-434); RBC 3.73 M/mm3 (3.60-5.2); RDW 15.3 % (11.6-15.6); WHITE BLOOD COUNT 4.8 K/mm3 (4.0-10.0)
[2018-08-27 07:42] LABS: ALBUMIN 1.2 g/dl (3.4-5.0); ALK PHOS 107 U/L (45-117); ANION GAP 10 MMOL/L (8-16); BILIRUBIN,TOTAL 0.5 mg/dL (0.2-1); BLOOD UREA NITROGEN 3 mg/dL (7-18); CHLORIDE 109 mmol/L (98-107); CO2 30 mmol/L (21-32); CREATININE 0.4 mg/dL (0.55-1.3); GLUCOSE,RANDOM 134 mg/dL (74-106); SGOT/AST 8 U/L (15-37); SGPT/ALT 8 U/L (13-61); SODIUM 149 mmol/L (136-145); TOT PROT 4.5 g/dl (6.4-8.2)
[2018-08-27 07:51] LABS: CALCIUM 6.6 mg/dL (8.5-10.1); POTASSIUM 2.8 mmol/L (3.5-5.1)
[2018-08-27] MEDS: amLODIPine BESYLATE 10 MG TABLET (FP) PO SCH (09:31)
[2018-08-27] MEDS: ENOXAPARIN NA (PORCINE) 40 MG/0.4 ML DISP.SYRIN SQ SCH (09:32)
[2018-08-27] MEDS: RANITIDINE HCL 150 MG TABLET (FP) PO SCH ×2 (09:32→21:41)
[2018-08-27] MEDS: FERROUS SO4 325 MG TABLET (FP) PO SCH (09:32)
[2018-08-27] MEDS: LISINOPRIL 10 MG TABLET (FP) PO SCH (09:32)
--- NOTE | 2018-08-27 11:02 | PN ---
Progress Note (short form) - Note Progress Note: Chief Complaint: weakness s: no chest pain, palps, dizziness, lightheadedness Vital Signs: Vital Signs Period Temp Pulse Resp BP Sys/Luna Pulse Ox Last 24 Hr 98.1 F-98.7 F 80-84 18-20 111-146/63-87 96-96 Constitutional: Yes: Well Nourished, No Distress, Calm Eyes: Yes: Conjunctiva Clear, EOM Intact HENT: Yes: Atraumatic, Normocephalic Neck: Yes: Supple, Trachea Midline Respiratory: Yes: Regular, CTA Bilaterally Gastrointestinal: Yes: Normal Bowel Sounds Cardiovascular: Yes: Regular Rate and Rhythm JVD: No Carotid Bruit: No Heart Sounds: Yes: S1, S2 Murmur: No: Systolic Murmur Musculoskeletal: No: Back Pain Extremities: No: Cold Edema: No Peripheral Pulses WNL: Yes Peripheral Pulses: 2+ Left Doralis Pedis, 2+ Right Dorsalis Pedis Neurological: Yes: Alert, Confusion Psychiatric: No: Agitated Current Medications Amlodipine Besylate (Norvasc -) 10 mg PO DAILY [facility] Last Admin: 08/27/18 09:31 Dose: 10 mg Bacitracin/Polymyxin B Sulfate (Polysporin Ointment -) 1 applic TP BID [facility] Last Admin: 08/27/18 09:33 Dose: 1 applic Enoxaparin Sodium (Lovenox -) 40 mg SQ DAILY [facility] Last Admin: 08/27/18 09:32 Dose: 40 mg Ferrous Sulfate (Feosol -) 325 mg PO DAILY [facility] Last Admin: 08/27/18 09:32 Dose: 325 mg Metronidazole (Flagyl 500mg Premixed Ivpb -) 500 mg in 100 mls @ 100 mls/hr IVPB Q6H-IV [facility] Last Admin: 08/27/18 09:32 Dose: 100 mls/hr Potassium Chloride/Sodium Chloride (Ns+20 Meq Kcl -) 20 meq in 1,000 mls @ 83 mls/hr IV ASDIR [facility] Last Admin: 08/26/18 12:07 Dose: 83 mls/hr Insulin Aspart (Novolog Vial Sliding Scale -) [address] [facility]; Protocol Last Admin: 08/27/18 06:27 Dose: Not Given Lisinopril (Prinivil) 10 mg PO DAILY [facility] Last Admin: 08/27/18 09:32 Dose: 10 mg Ranitidine HCl (Zantac -) 150 mg PO BID [facility] Last Admin: 08/27/18 09:32 Dose: 150 mg Assessment/Plan EKG: sinus, PACs, PVC, no ischemic changes CXR: no acute process tele: sinus, PACs, PVCs CT A/P: acute proctocolitis, partially imaged descending thoracic aorta with aneurysmal dilation at least 4 cm, mural thrombus along dilated segment, extends into suprarenal and infrarenal aorta with max diameter 3.4 cm, mural thrombus along l lateral aspect of infrarenal aorta, extensive atheroscloerotic vascular calcifications are seen, small john pleural effusions Failure to thrive, weakness - manage per primary, on abx, lytes repletion elevated troponin - indeterminate range, flat trend, unremarkable EKG - unlikely ACS abdominal and thoracic aorta aneurysm - CT chest pending for further evaluation, not well visualized but reportedly > 4 cm thoracic - vascular consulted, recommended outpatient surveillance with ultrasound - echo pending ?aortic stenosis - per report, patient not aware of hx, poor historian - did not auscultate murmur c/w on exam - echo pending HTN - stable on current meds, continue dc tele
[2018-08-27] MEDS: KCL 10 MEQ IVPB 10 MEQ/100 ML INFUS.BAG IVPB SCH ×3 (11:22→14:34)
--- NOTE | 2018-08-27 11:38 | ECHO ---
Name: HENNY NASH Exam:Adult Echocardiogram Study Date: 08/27/2018 07:56 AM Age: 77 yrs Reason For Study: Aortics Stenosis Height: 62 in Weight: 130 lb BSA: 1.6 m2 MMode/2D Measurements & Calculations IVSd: 1.0 cm Ao root diam: 2.6 cm LVIDd: 4.1 cm LA dimension: 2.5 cm LVIDs: 2.8 cm LVPWd: 1.1 cm EDV(Teich): 73.4 ml LAV (MOD-bp): 91.8 ml ESV(Teich): 30.8 ml Doppler Measurements & Calculations MV E max mathieu: 56.8 cm/sec MR max mathieu: 466.9 cm/sec MV A max mathieu: 86.3 cm/sec MR max P.0 mmHg MV E/A: 0.66 MV dec time: 0.17 sec TR max mathieu: 314.0 cm/sec Med Peak E' Mathieu: 4.9 cm/sec TR max P.6 mmHg Med E/e': 11.6 Lat Peak E' Mathieu: 6.7 cm/sec Lat E/e': 8.4 Procedure A two-dimensional transthoracic echocardiogram with color flow and Doppler was performed. The patient was in normal sinus rhythm during the exam. Left Ventricle The left ventricle is normal in size. Left ventricular systolic function is normal. Ejection Fraction = 58. E/A reversal consistent with but not diagnostic of poor LV compliance. Right Ventricle The right ventricle is grossly normal size. The right ventricular systolic function is grossly normal . Atria The left atrial size is normal. Right atrial size is normal. Mitral Valve The mitral valve is normal. There is mild mitral regurgitation. Tricuspid Valve The tricuspid valve is normal. There is mild to moderate tricuspid regurgitation. Right ventricular s ystolic pressure is elevated at 40-50mmHg. Aortic Valve There is mild aortic valve thickening. The aortic valve opens well. The aortic valve is trileaflet. N o hemodynamically significant valvular aortic stenosis. Trace aortic regurgitation. Pulmonic Valve The pulmonic valve is not well seen, but is grossly normal. There is no pulmonic valvular regurgitati on. Great Vessels The aortic root is normal size. Pericardium/Pleura There is no pericardial effusion. Interpretation Summary Left ventricular systolic function is normal. E/A reversal consistent with but not diagnostic of poor LV compliance The right ventricular systolic function is grossly normal. There is mild mitral regurgitation. There is mild to moderate tricuspid regurgitation. Right ventricular systolic pressure is elevated at 40-50mmHg. There is mild aortic valve thickening. No hemodynamically significant valvular aortic stenosis. Trace aortic regurgitation. There is no pericardial effusion. MD John Quintero 08/27/2018 11:38 AM
[2018-08-27] MEDS ORDERED: CALCIUM GLUCONATE 10% - 1,000 MG/10 ML VIAL IVPB ONE ×2 (11:45→20:52)
[2018-08-27] MEDS ORDERED: PT OWN MED DRAWER 7, Y5N ONE (12:22)
[2018-08-27] MEDS ORDERED: LOPERAMIDE HCL 2 MG CAPSULE PO ONE (12:30)
[2018-08-27] MEDS ORDERED: LOPERAMIDE HCL 1 MG/5 ML UNIT DOSE CUP PO ONE (12:30)
--- NOTE | 2018-08-27 12:35 | PN ---
GI Progress Note Subjective: + Diarrhea Patient observed spitting out food from her mouth Denies abdominal pain - Objective Vital Signs: Vital Signs Temperature 97.9 F 08/27/18 10:00 Pulse Rate 97 H 08/27/18 10:00 Respiratory Rate 18 08/27/18 10:00 Blood Pressure 130/93 08/27/18 10:00 O2 Sat by Pulse Oximetry (%) 96 08/27/18 07:39 Constitutional: Calm Eyes: No: Sclera Icterus Cardiovascular: Yes: Regular Rate and Rhythm. No: Murmur Neurological: Yes: Alert Labs: CBC, BMP 08/27/18 05:30 08/27/18 05:30 INR, PTT INR 1.41 (0.83-1.09) H 08/23/18 18:00 Hepatic Panel Total Bilirubin 0.5 mg/dL (0.2-1) 08/27/18 05:30 AST 8 U/L (15-37) L 08/27/18 05:30 ALT 8 U/L (13-61) L 08/27/18 05:30 Alkaline Phosphatase 107 U/L (45-117) 08/27/18 05:30 Albumin 1.2 g/dl (3.4-5.0) L 08/27/18 05:30 Problem List - Problems (1) Failure to thrive syndrome, adult Assessment/Plan: ? goals of care at this point. What does family want done? She has a microcytic anemia. EGD/colonoscopy could be performed once electrolytes / coaguulopathy corrected, however, I doubt she will cooperate for a bowel prep. Discussed options with Ms. Frank's decision maker and sister Chantal Kam. Explained that she has poor PO intake and is spitting food out. Explained that she is anemia as well. Explained that to look for GI sources of anemia such as bleeding blood vessels, polyps, cancers, EGD and colonoscopy can be undertaken. We discuseed potential riskls of the procedures like but not limited to bleeding, perforation requiring surgery to repair, infection, sedation medication effects all of which could be potentially life threatening. I also explained that given her poor PO intake, feeding tube placement can also be undertaken. As above, we reviewed risk of PEG including perotinitis if the tube was prematurely dislodged. After discussion, she stated that she would look into these things. Discussed things with Dr. Acuna, who stated that she would give Ms. Kam a call as well Continue calorie count Discontinue Abx to see if this aids with diarrhea /PO Iron may cause a paradoxical diarrhea in the elderly as well. ? if CT chest needed to assess extent of thoracic aneurysm seen on CT A/P Code(s): R62.7 - ADULT FAILURE TO THRIVE
[2018-08-27] MEDS: SODIUM CHLORIDE 0.9%/KCL 20 MEQ/1,000 ML INFUS.BAG IV SCH (12:44)
--- NOTE | 2018-08-27 12:45 | PN ---
Progress Note (short form) - Note Progress Note: no abd pain refusing food has diarrhea Vital Signs - 24 hr 08/26/18 08/26/18 08/26/18 14:00 21:00 21:08 Temperature 98.7 F 98.1 F Pulse Rate 84 80 Respiratory 20 20 Rate Blood Pressure 146/87 130/75 O2 Sat by Pulse 96 Oximetry (%) 08/27/18 08/27/18 08/27/18 02:00 05:32 07:39 Temperature 98.4 F 98.3 F Pulse Rate 84 83 Respiratory 20 18 18 Rate Blood Pressure 111/76 117/63 O2 Sat by Pulse 96 Oximetry (%) 08/27/18 10:00 Temperature 97.9 F Pulse Rate 97 H Respiratory 18 Rate Blood Pressure 130/93 O2 Sat by Pulse Oximetry (%) Current Medications Generic Name Dose Route Start Last Admin Trade Name Freq PRN Reason Stop Dose Admin Amlodipine Besylate 10 mg 08/24/18 10:00 08/27/18 09:31 Norvasc - PO 10 mg DAILY [facility] Administration Bacitracin/Polymyxin B Sulfate 1 applic 08/25/18 11:15 08/27/18 09:33 Polysporin Ointment - TP 1 applic BID [facility] Administration Enoxaparin Sodium 40 mg 08/26/18 10:30 08/27/18 09:32 Lovenox - SQ 40 mg DAILY [facility] Administration Ferrous Sulfate 325 mg 08/24/18 10:00 08/27/18 09:32 Feosol - PO 325 mg DAILY [facility] Administration Metronidazole 500 mg in 100 mls @ 100 mls/hr 08/23/18 23:15 08/27/18 09:32 Flagyl 500mg Premixed Ivpb - IVPB 100 mls/hr Q6H-IV [facility] Administration Potassium Chloride 10 meq in 100 mls @ 100 mls/hr 08/27/18 11:15 08/27/18 12: 29 Potassium Chloride 10 Meq Premix Ivpb - IVPB 08/27/18 14:14 100 mls/hr Q60M [facility] Administration Potassium Chloride/Sodium Chloride 20 meq in 1,000 mls @ 100 mls/hr 08/27/18 11:09 Ns+20 Meq Kcl - IV ASDIR [facility] Insulin Aspart 1 vial 08/24/18 07:00 08/27/18 11:22 Novolog Vial Sliding Scale - SQ Not Given ACHS [facility] Protocol Lisinopril 10 mg 08/24/18 10:00 08/27/18 09:32 Prinivil PO 10 mg DAILY [facility] Administration Ranitidine HCl 150 mg 08/24/18 10:00 08/27/18 09:32 Zantac - PO 150 mg BID [facility] Administration Laboratory Results - last 24 hr 08/26/18 08/26/18 08/27/18 17:10 21:37 05:19 WBC RBC Hgb Hct MCV MCH MCHC RDW Plt Count MPV Absolute Neuts (auto) Neutrophils % Lymphocytes % Monocytes % Eosinophils % Basophils % Nucleated RBC % Sodium 147 H Potassium 3.3 L Chloride 109 H Carbon Dioxide 30 Anion Gap 8 BUN 3 L Creatinine 0.5 L Creat Clearance w eGFR > 60 POC Glucometer 204 119 Random Glucose 201 H Calcium 6.7 L* Total Bilirubin AST ALT Alkaline Phosphatase Total Protein Albumin 08/27/18 08/27/18 08/27/18 05:30 05:30 11:19 WBC 4.8 RBC 3.73 Hgb 8.5 L Hct 27.1 L MCV 72.7 L MCH 22.9 L MCHC 31.5 L RDW 15.3 Plt Count 250 MPV 8.8 Absolute Neuts (auto) 3.1 Neutrophils % 63.8 Lymphocytes % 24.5 Monocytes % 6.8 Eosinophils % 4.5 Basophils % 0.4 Nucleated RBC % 0 Sodium 149 H Potassium 2.8 L* Chloride 109 H Carbon Dioxide 30 Anion Gap 10 BUN 3 L Creatinine 0.4 L Creat Clearance w eGFR > 60 POC Glucometer 157 Random Glucose 134 H Calcium 6.6 L* Total Bilirubin 0.5 AST 8 L ALT 8 L Alkaline Phosphatase 107 Total Protein 4.5 L Albumin 1.2 L S1 S2 RRR Lungs clear Abd-soft, tender LLQ, lower abd Ext- no edema no rash noted PLAN Aortic aneurysm-- Vascular eval noted, to follow-up Hypokalemia-- replace lytes- repeat later today one dose Immodium iv fluids repeat labs tomorrow Proctocolitis-- on iv antibiotics, iv fluids cdiff negative stool guaic negative Problem List - Problems (1) Proctocolitis Code(s): K52.9 - NONINFECTIVE GASTROENTERITIS AND COLITIS, UNSPECIFIED (2) Hypokalemia Code(s): E87.6 - HYPOKALEMIA (3) Failure to thrive syndrome, adult Code(s): R62.7 - ADULT FAILURE TO THRIVE (4) Rectal bleeding Code(s): K62.5 - HEMORRHAGE OF ANUS AND RECTUM
[2018-08-27 18:18] LABS: ANION GAP 10 MMOL/L (8-16); BLOOD UREA NITROGEN 3 mg/dL (7-18); CHLORIDE 110 mmol/L (98-107); CO2 27 mmol/L (21-32); CREATININE 0.5 mg/dL (0.55-1.3); GLUCOSE,RANDOM 180 mg/dL (74-106); POTASSIUM 3.4 mmol/L (3.5-5.1); SODIUM 148 mmol/L (136-145)
[2018-08-27 18:22] LABS: CALCIUM 6.3 mg/dL (8.5-10.1)
[2018-08-27] MEDS ORDERED: POTASSIUM CHLORIDE ORAL LIQUID 20 MEQ/15 ML PO ONE (20:55)
[2018-08-28] MEDS ORDERED: CALCIUM GLUCONATE 10% - 1,000 MG/10 ML VIAL IVPB ONE
[2018-08-28] MEDS: INSULIN SLIDING SCALE (NOVOLOG) 1 VIAL SQ SCH ×4 (06:37→22:40)
[2018-08-28 07:08] LABS: ANION GAP 8 MMOL/L (8-16); BLOOD UREA NITROGEN 3 mg/dL (7-18); CHLORIDE 109 mmol/L (98-107); CO2 28 mmol/L (21-32); CREATININE 0.5 mg/dL (0.55-1.3); GLUCOSE,RANDOM 176 mg/dL (74-106); MAGNESIUM 1.5 mg/dL (1.8-2.4); POTASSIUM 3.5 mmol/L (3.5-5.1); SODIUM 145 mmol/L (136-145)
[2018-08-28] MEDS: RANITIDINE HCL 150 MG TABLET (FP) PO SCH ×2 (09:20→23:07)
[2018-08-28] MEDS: LISINOPRIL 10 MG TABLET (FP) PO SCH (09:20)
[2018-08-28] MEDS: FERROUS SO4 325 MG TABLET (FP) PO SCH (09:20)
[2018-08-28] MEDS: amLODIPine BESYLATE 10 MG TABLET (FP) PO SCH (09:20)
[2018-08-28] MEDS: BACITRACIN/POLYMYXIN B SULFATE 15 GM TUBE TP SCH ×2 (09:21→23:08)
[2018-08-28] MEDS: ENOXAPARIN NA (PORCINE) 40 MG/0.4 ML DISP.SYRIN SQ SCH (09:21)
--- NOTE | 2018-08-28 11:10 | PN ---
Progress Note (short form) - Note Progress Note: Chief Complaint: weakness s: no chest pain, palps, dizziness, lightheadedness Vital Signs: Vital Signs Period Temp Pulse Resp BP Sys/Luna Pulse Ox Last 24 Hr 97.8 F-98.1 F 82-91 18-20 113-146/78-91 94 Constitutional: Yes: Well Nourished, No Distress, Calm Eyes: Yes: Conjunctiva Clear, EOM Intact HENT: Yes: Atraumatic, Normocephalic Neck: Yes: Supple, Trachea Midline Respiratory: Yes: Regular, CTA Bilaterally Gastrointestinal: Yes: Normal Bowel Sounds Cardiovascular: Yes: Regular Rate and Rhythm JVD: No Carotid Bruit: No Heart Sounds: Yes: S1, S2 Murmur: No: Systolic Murmur Musculoskeletal: No: Back Pain Extremities: No: Cold Edema: No Peripheral Pulses WNL: Yes Peripheral Pulses: 2+ Left Doralis Pedis, 2+ Right Dorsalis Pedis Neurological: Yes: Alert, Confusion Psychiatric: No: Agitated Current Medications Amlodipine Besylate (Norvasc -) 10 mg PO DAILY [facility] Last Admin: 08/28/18 09:20 Dose: 10 mg Bacitracin/Polymyxin B Sulfate (Polysporin Ointment -) 1 applic TP BID [facility] Last Admin: 08/28/18 09:21 Dose: 1 applic Enoxaparin Sodium (Lovenox -) 40 mg SQ DAILY [facility] Last Admin: 08/28/18 09:21 Dose: 40 mg Ferrous Sulfate (Feosol -) 325 mg PO DAILY [facility] Last Admin: 08/28/18 09:20 Dose: 325 mg Potassium Chloride/Sodium Chloride (Ns+20 Meq Kcl -) 20 meq in 1,000 mls @ 100 mls/hr IV ASDIR [facility] Last Admin: 08/27/18 12:44 Dose: 100 mls/hr Potassium Chloride (Potassium Chloride 10 Meq Premix Ivpb -) 10 meq in 100 mls @ 100 mls/hr IVPB Q60M [facility] Stop: 08/28/18 12:44 Insulin Aspart (Novolog Vial Sliding Scale -) 1 vial SQ ACHS [facility]; Protocol Last Admin: 08/28/18 06:37 Dose: 2 units Lisinopril (Prinivil) 10 mg PO DAILY [facility] Last Admin: 08/28/18 09:20 Dose: 10 mg Magnesium Sulfate (Magnesium Sulf 2 G/50 Ml Bag) 2 gm IVPB ONCE ONE Stop: 08/28/18 11:31 Ranitidine HCl (Zantac -) 150 mg PO BID [facility] Last Admin: 08/28/18 09:20 Dose: 150 mg Assessment/Plan EKG: sinus, PACs, PVC, no ischemic changes CXR: no acute process echo 08/2018 nl LV/RV function, mid MR, mild to mod TR, RVSP elevated 40-50 mmHg , no aortic stenosis, trace AR tele: sinus, PACs, PVCs CT A/P: acute proctocolitis, partially imaged descending thoracic aorta with aneurysmal dilation at least 4 cm, mural thrombus along dilated segment, extends into suprarenal and infrarenal aorta with max diameter 3.4 cm, mural thrombus along l lateral aspect of infrarenal aorta, extensive atheroscloerotic vascular calcifications are seen, small john pleural effusions Failure to thrive, weakness - manage per primary, on abx, lytes repletion elevated troponin - indeterminate range, flat trend, unremarkable EKG - unlikely ACS - nl LV function on echo, no aortic stenosis abdominal and thoracic aorta aneurysm - CT chest pending for further evaluation, not well visualized but reportedly > 4 cm thoracic - vascular consulted, recommended outpatient surveillance with ultrasound HTN - stable on current meds, continue dc tele
[2018-08-28] MEDS: SODIUM CHLORIDE 0.9%/KCL 20 MEQ/1,000 ML INFUS.BAG IV SCH ×2 (11:28→12:51)
[2018-08-28] MEDS ORDERED: MAGNESIUM 2GM/50ML STERILE WATER IVPB IVPB ONE (11:30)
[2018-08-28] MEDS ORDERED: FUROSEMIDE 40 MG/4 ML INJECTABLE VIAL IVPUSH ONE (11:51)
[2018-08-28] MEDS: KCL 10 MEQ IVPB 10 MEQ/100 ML INFUS.BAG IVPB SCH ×2 (12:51→15:16)
--- NOTE | 2018-08-28 14:14 | PN ---
Progress Note (short form) - Note Progress Note: no abd pain refusing food has diarrhea-- less Vital Signs - 24 hr 08/27/18 08/27/18 08/28/18 21:00 21:41 02:00 Temperature 98.1 F 98.1 F Pulse Rate 84 82 Respiratory 20 20 Rate Blood Pressure 146/80 113/78 O2 Sat by Pulse 94 L Oximetry (%) 08/28/18 08/28/18 08/28/18 05:28 09:00 10:00 Temperature 97.8 F 97.8 F Pulse Rate 88 83 Respiratory 18 18 18 Rate Blood Pressure 140/89 139/92 O2 Sat by Pulse 92 L Oximetry (%) Current Medications Generic Name Dose Route Start Last Admin Trade Name Freq PRN Reason Stop Dose Admin Amlodipine Besylate 10 mg 08/24/18 10:00 08/28/18 09:20 Norvasc - PO 10 mg DAILY [facility] Administration Bacitracin/Polymyxin B Sulfate 1 applic 08/25/18 11:15 08/28/18 09:21 Polysporin Ointment - TP 1 applic BID [facility] Administration Enoxaparin Sodium 40 mg 08/26/18 10:30 08/28/18 09:21 Lovenox - SQ 40 mg DAILY [facility] Administration Ferrous Sulfate 325 mg 08/24/18 10:00 08/28/18 09:20 Feosol - PO 325 mg DAILY [facility] Administration Potassium Chloride/Sodium Chloride 20 meq in 1,000 mls @ 70 mls/hr 08/28/18 11 :51 08/28/18 12:51 Ns+20 Meq Kcl - IV Not Given ASDIR [facility] Insulin Aspart 1 vial 08/24/18 07:00 08/28/18 12:30 Novolog Vial Sliding Scale - SQ Not Given ACHS [facility] Protocol Lisinopril 10 mg 08/24/18 10:00 08/28/18 09:20 Prinivil PO 10 mg DAILY [facility] Administration Ranitidine HCl 150 mg 08/24/18 10:00 08/28/18 09:20 Zantac - PO 150 mg BID [facility] Administration Laboratory Results - last 24 hr 08/27/18 08/27/18 08/27/18 17:02 17:20 21:45 Sodium 148 H Potassium 3.4 L Chloride 110 H Carbon Dioxide 27 Anion Gap 10 BUN 3 L Creatinine 0.5 L Creat Clearance w eGFR > 60 POC Glucometer 194 184 Random Glucose 180 H Calcium 6.3 L* Magnesium 08/28/18 08/28/18 08/28/18 05:30 05:38 12:24 Sodium 145 Potassium 3.5 Chloride 109 H Carbon Dioxide 28 Anion Gap 8 BUN 3 L Creatinine 0.5 L Creat Clearance w eGFR > 60 POC Glucometer 173 138 Random Glucose 176 H Calcium 7.0 L Magnesium 1.5 L S1 S2 RRR Lungs decreased Abd-soft, no tenderness Ext- no edema no rash noted PLAN Aortic aneurysm-- CT Chest noted - pleural effusion, spoke with Radiology, descending thoracic aorta 4.6 cm Hypokalemia-- replace lytes- replace magnesium stat dose Lasix does not appear SOB repeat labs tomorrow Proctocolitis-- dc antibiotics - spoke with GI cdiff negative stool guaic negative pt refusing to eat - she wants supplements Problem List - Problems (1) Proctocolitis Code(s): K52.9 - NONINFECTIVE GASTROENTERITIS AND COLITIS, UNSPECIFIED (2) Hypokalemia Code(s): E87.6 - HYPOKALEMIA (3) Failure to thrive syndrome, adult Code(s): R62.7 - ADULT FAILURE TO THRIVE (4) Rectal bleeding Code(s): K62.5 - HEMORRHAGE OF ANUS AND RECTUM
[2018-08-28] MEDS: AMINO ACIDS/PROTEIN HYDROLYS 30 ML LIQUID.PKT PO SCH ×2 (17:39→17:43)
[2018-08-28] MEDS: POTASSIUM CHLORIDE ORAL LIQUID 20 MEQ/15 ML PO SCH (23:08)
[2018-08-29] MEDS: SODIUM CHLORIDE 0.9%/KCL 20 MEQ/1,000 ML INFUS.BAG IV SCH ×2 (04:30→13:25)
[2018-08-29] MEDS: INSULIN SLIDING SCALE (NOVOLOG) 1 VIAL SQ SCH ×3 (06:54→18:06)
[2018-08-29] MEDS: AMINO ACIDS/PROTEIN HYDROLYS 30 ML LIQUID.PKT PO SCH ×2 (08:13→18:06)
[2018-08-29 08:16] LABS: ANION GAP 9 MMOL/L (8-16); BLOOD UREA NITROGEN 3 mg/dL (7-18); CHLORIDE 111 mmol/L (98-107); CO2 29 mmol/L (21-32); CREATININE 0.5 mg/dL (0.55-1.3); GLUCOSE,RANDOM 190 mg/dL (74-106); POTASSIUM 3.6 mmol/L (3.5-5.1); SODIUM 150 mmol/L (136-145)
[2018-08-29 08:30] LABS: CALCIUM 6.9 mg/dL (8.5-10.1)
--- NOTE | 2018-08-29 09:36 | DS ---
Physical Examination Vital Signs: Vital Signs Temperature 98 F 08/28/18 22:00 Pulse Rate 78 08/28/18 22:00 Respiratory Rate 20 08/28/18 22:00 Blood Pressure 134/92 08/28/18 22:00 O2 Sat by Pulse Oximetry (%) 92 L 08/28/18 09:00 Findings/Remarks: patient seen and examined. chart reviewed. Awake and comfortable. No distress Wants to go back to [facility] Constitutional: Yes: No Distress, Calm Eyes: Yes: Conjunctiva Clear Neck: Yes: Supple Cardiovascular: Yes: Regular Rate and Rhythm Respiratory: Yes: CTA Bilaterally Gastrointestinal: Yes: Soft Edema: No Labs: CBC, BMP 08/27/18 05:30 08/29/18 07:00 Discharge Summary Reason For Visit: RECTAL HEMORRHAGE FAILURE TO THRIVE IN ADULT HYPOK Current Active Problems Failure to thrive syndrome, adult (Acute) Hypokalemia (Acute) Proctocolitis (Acute) Rectal bleeding (Acute) Unexplained weight loss (Acute) Hospital Course: Treated with antibiotics--- for proctocolitis and UTI Not better Aneurysm---monitor--no surgical treatment at present--- surgical consultation taken Stable for discharge to [facility] Medications reconciled Discussed with nursing staff Condition: Guarded - Instructions Diet, Activity, Other Instructions: Activity as tolerated skin and mouth care encourage to eat Referrals: Johan Mancuso MD [Primary Care Provider] - Disposition: LONG TERM FACILITY - Home Medications Comprehensive Discharge Medication List: Ambulatory Orders Amlodipine Besylate [Norvasc -] 10 mg PO DAILY 08/23/18 Docusate Sodium [Colace] 200 mg PO DAILY 08/23/18 Ergocalciferol (Vitamin D2) [Vitamin D2] 50,000 unit PO WEEKLY 08/23/18 Ferrous Sulfate [Feosol] 325 mg PO DAILY 08/23/18 Lisinopril [Prinivil] 10 mg PO DAILY 08/23/18 Metformin HCl [Metformin HCl ER] 500 mg PO BID 08/23/18 Ranitidine [Zantac -] 150 mg PO BID 08/23/18 Amino Acids/Protein Hydrolys [Prosource No Carb Liquid Pkt] 30 ml PO BID@0800, 1730 packet 08/29/18 Bacitracin/Polymyxin Ointment [Polysporin Ointment -] 1 applic TP BID tube Enoxaparin [Lovenox -] 40 mg SQ DAILY disp.syrin 08/29/18
[2018-08-29] MEDS: ENOXAPARIN NA (PORCINE) 40 MG/0.4 ML DISP.SYRIN SQ SCH (11:11)
[2018-08-29] MEDS: POTASSIUM CHLORIDE ORAL LIQUID 20 MEQ/15 ML PO SCH (11:11)
[2018-08-29] MEDS: LISINOPRIL 10 MG TABLET (FP) PO SCH (11:12)
[2018-08-29] MEDS: RANITIDINE HCL 150 MG TABLET (FP) PO SCH (11:12)
[2018-08-29] MEDS: amLODIPine BESYLATE 10 MG TABLET (FP) PO SCH (11:12)
[2018-08-29] MEDS: FERROUS SO4 325 MG TABLET (FP) PO SCH (11:12)
[2018-08-29] MEDS: BACITRACIN/POLYMYXIN B SULFATE 15 GM TUBE TP SCH (11:13)
[2018-08-29 15:00] VITALS: TEMP 98
--- NOTE | 2018-08-29 16:17 | PN ---
Progress Note (short form) - Note Progress Note: Chief Complaint: weakness s: no chest pain, palps, dizziness, lightheadedness Vital Signs: Vital Signs Period Temp Pulse Resp BP Sys/Luna Pulse Ox Last 24 Hr 98 F-98.1 F 78-95 16-20 120-134/70-99 Constitutional: Yes: Well Nourished, No Distress, Calm Eyes: Yes: Conjunctiva Clear, EOM Intact HENT: Yes: Atraumatic, Normocephalic Neck: Yes: Supple, Trachea Midline Respiratory: Yes: Regular, CTA Bilaterally Gastrointestinal: Yes: Normal Bowel Sounds Cardiovascular: Yes: Regular Rate and Rhythm JVD: No Carotid Bruit: No Heart Sounds: Yes: S1, S2 Murmur: No: Systolic Murmur Musculoskeletal: No: Back Pain Extremities: No: Cold Edema: No Peripheral Pulses WNL: Yes Peripheral Pulses: 2+ Left Doralis Pedis, 2+ Right Dorsalis Pedis Neurological: Yes: Alert, Confusion Psychiatric: No: Agitated Current Medications Amino Acids (Prosource No Carb Liquid Pkt) 30 ml PO BID@0800,1730 [facility] Last Admin: 08/29/18 08:13 Dose: 30 ml Amlodipine Besylate (Norvasc -) 10 mg PO DAILY [facility] Last Admin: 08/29/18 11:12 Dose: 10 mg Bacitracin/Polymyxin B Sulfate (Polysporin Ointment -) 1 applic TP BID [facility] Last Admin: 08/29/18 11:13 Dose: 1 applic Enoxaparin Sodium (Lovenox -) 40 mg SQ DAILY [facility] Last Admin: 08/29/18 11:11 Dose: 40 mg Ferrous Sulfate (Feosol -) 325 mg PO DAILY [facility] Last Admin: 08/29/18 11:12 Dose: 325 mg Potassium Chloride/Sodium Chloride (Ns+20 Meq Kcl -) 20 meq in 1,000 mls @ 70 mls/hr IV ASDIR [facility] Last Admin: 08/29/18 13:25 Dose: Not Given Insulin Aspart (Novolog Vial Sliding Scale -) 1 vial SQ ACHS [facility]; Protocol Last Admin: 08/29/18 11:44 Dose: 2 units Lisinopril (Prinivil) 10 mg PO DAILY [facility] Last Admin: 08/29/18 11:12 Dose: 10 mg Potassium Chloride (Potassium Chloride Oral Liquid) 40 meq PO BID [facility] Last Admin: 08/29/18 11:11 Dose: 40 meq Ranitidine HCl (Zantac -) 150 mg PO BID [facility] Last Admin: 08/29/18 11:12 Dose: 150 mg Assessment/Plan EKG: sinus, PACs, PVC, no ischemic changes CXR: no acute process echo 08/2018 nl LV/RV function, mid MR, mild to mod TR, RVSP elevated 40-50 mmHg , no aortic stenosis, trace AR tele: sinus, PACs, PVCs CT A/P: acute proctocolitis, partially imaged descending thoracic aorta with aneurysmal dilation at least 4 cm, mural thrombus along dilated segment, extends into suprarenal and infrarenal aorta with max diameter 3.4 cm, mural thrombus along l lateral aspect of infrarenal aorta, extensive atheroscloerotic vascular calcifications are seen, small john pleural effusions Failure to thrive, weakness - manage per primary, on abx, lytes repletion elevated troponin - indeterminate range, flat trend, unremarkable EKG - unlikely ACS - nl LV function on echo, no aortic stenosis abdominal and thoracic aorta aneurysm - CT chest pending for further evaluation, not well visualized but reportedly > 4 cm thoracic - vascular consulted, recommended outpatient surveillance with ultrasound HTN - stable on current meds, continue
[2018-08-29 17:52] VITALS: BP 125/75; PULSE 98
[2018-08-29] MEDS ORDERED: PT OWN MED DRAWER 7, Y5N ONE (19:24)
== END 2018-08-29 18:52 | DRG 640 ==
LOC: JER 16:01 → JERBED 21:28 → J4W 23:12 → J8W 08-28 11:09
PROVIDERS: ADMIT Internal Medicine; ATTEND Internal Medicine
DX: R62.7 Adult failure to thrive (principal); E43 Unspecified severe protein-calorie malnutrition; E87.0 Hyperosmolality and hypernatremia; N39.0 Urinary tract infection, site not specified; E11.65 Type 2 diabetes mellitus with hyperglycemia; I71.2 Thoracic aortic aneurysm, without rupture; I71.4 Abdominal aortic aneurysm, without rupture; I70.0 Atherosclerosis of aorta; E83.39 Other disorders of phosphorus metabolism; E88.09 Other disorders of plasma-protein metabolism, not elsewhere classified; E87.6 Hypokalemia; E87.8 Other disorders of electrolyte and fluid balance, not elsewhere classified; E83.42 Hypomagnesemia; K52.9 Noninfective gastroenteritis and colitis, unspecified; I10 Essential (primary) hypertension; E78.5 Hyperlipidemia, unspecified; F03.90 Unspecified dementia, unspecified severity, without behavioral disturbance, psychotic disturbance, mood disturbance, and anxiety; F32.9 Major depressive disorder, single episode, unspecified; D50.9 Iron deficiency anemia, unspecified; Z68.23 Body mass index [BMI] 23.0-23.9, adult; R63.4 Abnormal weight loss; Z79.84 Long term (current) use of oral hypoglycemic drugs; Z87.891 Personal history of nicotine dependence; D64.9 Anemia, unspecified
CPT/HCPCS: 36415; 71045-TC-FY; 71275-TC; 74177-TC; 76856-TC; 80048; 80053; 81003; 82272; 82550; 82553; 82962; 83036; 83735; 84100; 84484; 85025; 85027; 85610; 85730; 87040; 87070; 87077; 87086; 87186; 87205; 87324; 87449; 93005; 93010; 93306-TC; 99283-25; J3480

== ENCOUNTER 2019-02-26 10:38 | Day surgery (SDC) | payer OTHER | END 2019-02-26 13:10 | disposition home or self-care (01) | LOC: FASU-ENDO 10:38 ==

== ENCOUNTER 2019-07-11 20:37 | Inpatient (IN) | payer OTHER ==
--- NOTE | 2019-07-11 22:04 | PDOC ---
History of Present Illness - General Chief Complaint: Abnormal Lab Results (Outside) Stated Complaint: ABNORMAL LABS Time Seen by Provider: 07/11/19 21:08 - History of Present Illness Initial Comments: 07/11/19 21:28 HPI: 78 y/o F with hx of dementia, HTN, HLD, COPD, IDDM, Fe deficiency anemia, murmur , ulcerative pancolitis who was made DNR/DNI yesterday BIBEMS from [facility] for Hb 7.3 at 9am this morning with requests for transfusion. Patient currently only complains of midsternal exertional chest pain that last occurred this morning. She states she feels it when she gets up and resolves on its own. Pain does not radiate. She denies any SOB, LH, FOY, palpitations, abd pain, n/v. She denies any recent BPR or dysuria. PMHx: as noted above ROS: as noted SHx: Denies tobacco use; no alcohol use; no rec drugs Allergies: NKDA ROS: given patient's mental status a&ox1 and hx of dementia, unreliable ROS PE: GENERAL: Awake, a&ox1 to place HEAD: No signs of trauma, normocephalic, atraumatic EYES: EOMI, sclera anicteric, conjunctiva clear ENT: Auricles normal inspection, hearing grossly normal, nares patent, oropharynx clear without exudates. Moist mucosa NECK: Normal ROM, no lymphadenopathy LUNGS: No increased work of breathing, symmetrical chest rise, clear to auscultation bilaterally, no wheezes, crackles or rhonchi HEART: Regular rate and rhythm, normal S1 and S2, systolic murmur, peripheral pulses 2+ and equal bilaterally. 2+ BL pitting LE edema ABDOMEN: Soft, nondistended, nontender, normoactive bowel sounds. No guarding, no rebound. No masses. No CVAT EXTREMITIES: Normal inspection, Normal range of motion, no edema. No clubbing or cyanosis. NEUROLOGICAL: Cranial nerves II through XII grossly intact. Normal speech, normal gait, no focal sensorimotor deficits SKIN: Warm, Dry, normal turgor, no rashes or lesions noted Past History - Past Medical History Allergies/Adverse Reactions: Allergies Allergy/AdvReac Type Severity Reaction Status Date / Time No Known Allergies Allergy Verified 07/11/19 21:06 Home Medications: Ambulatory Orders Ergocalciferol (Vitamin D2) [Vitamin D2] 50,000 unit PO WEEKLY 08/23/18 Ferrous Sulfate [Feosol] 325 mg PO DAILY 08/23/18 Ranitidine [Zantac -] 150 mg PO BID 08/23/18 metFORMIN HCL [Metformin HCl ER] 500 mg PO BID 08/23/18 Meclizine HCl 12.5 mg PO DAILY PRN 01/06/19 Mirtazapine [Remeron -] 7.5 mg PO HS 01/06/19 Albuterol 0.083% Nebulizer [place] [Ventolin 0.083% Nebulizer Soln -] 1 neb NEB TID 02/25/19 Amlodipine Besylate [Norvasc -] 5 mg PO DAILY 02/25/19 Apixaban [Eliquis] 5 mg PO BID 02/25/19 Sennosides [Senna] 2 tab PO HS 02/25/19 Anemia: Yes (ON IRON) Asthma: No Cancer: No Cardiac Disorders: No (HEART MURMUR) CVA: No COPD: Yes CHF: No Dementia: Yes Diabetes: Yes GI Disorders: Yes (GERD) Disorders: No HTN: Yes Hypercholesterolemia: Yes Liver Disease: No Seizures: No Thyroid Disease: No - Surgical History Orthopedic Surgery: Yes (BACK) - Psycho Social/Smoking Cessation Hx Smoking History: Former smoker Have you smoked in the past 12 months: No Information on smoking cessation initiated: No Hx Alcohol Use: No Drug/Substance Use Hx: No Substance Use Type: None Hx Substance Use Treatment: No *Physical Exam - Vital Signs Last Vital Signs Temp Pulse Resp BP Pulse Ox 98 F 90 18 154/89 98 07/11/19 21:03 07/11/19 21:03 07/11/19 21:03 07/11/19 21:03 07/11/19 21:03 ED Treatment Course - LABORATORY CBC & Chemistry Diagram: 07/11/19 22:30 07/11/19 22:30 - RADIOLOGY Radiology Studies Ordered: Category Date Time Status CXRPORT [CHEST X-RAY PORTABLE*] [RAD] Stat Radiology 07/11/19 21:26 Ordered Medical Decision Making - Medical Decision Making 07/11/19 22:43 78 y/o F with hx of dementia, HTN, HLD, COPD, IDDM, Fe deficiency anemia, murmur , ulcerative pancolitis who was made DNR/DNI yesterday BIBEMS from [facility] for Hb 7.3 at 9am this morning with requests for transfusion; also with reports of exertional chest pain. VSS, AF. PE unremarkable -cbc, cmp, ua, t&s, cardiac profile, coags, rkg, cxr 07/11/19 23:44 Hb 8.0 cmp pending 1 unit prbc ordered will admit to hospitalist once chem is resulted 07/12/19 00:04 signed out to night team to followup chem panel and then admit to hospitalist for symptomatic anemia Discharge - Discharge Information Problems reviewed: Yes Clinical Impression/Diagnosis: Anemia - Follow up/Referral Referrals: Emery Talavera MD [Primary Care Provider] - - Patient Discharge Instructions - Post Discharge Activity
[2019-07-11 22:45] LABS: BASO % 0.6 % (0-2.0); EOS % 0.3 % (0-4.5); HEMATOCRIT 26.2 % (32.4-45.2); MCHC 30.5 g/dl (32.0-36.0); MEAN CELL VOLUME 71.9 fl (80-96); MEAN PLT VOLUME 9.2 fl (7.5-11.1); MONO % 8.8 % (3.8-10.2); NEUT % 59.3 % (42.8-82.8); PLATELET COUNT 283 K/MM3 (134-434); RBC 3.64 M/mm3 (3.60-5.2); RDW 21.5 % (11.6-15.6); WHITE BLOOD COUNT 8.5 K/mm3 (4.0-10.0)
[2019-07-11 23:02] LABS: INR 1.03 (0.83-1.09); PROTHROMBIN TIME (PATIENT) 12.1 SEC (9.7-13.0)
[2019-07-11 23:27] LABS: ANISOCYTOSIS 2+
[2019-07-11 23:28] LABS: OVALOCYTE FEW
--- NOTE | 2019-07-12 00:08 | PDOC ---
*Physical Exam - Vital Signs Last Vital Signs Temp Pulse Resp BP Pulse Ox 98 F 90 18 154/89 98 07/11/19 21:03 07/11/19 21:03 07/11/19 21:03 07/11/19 21:03 07/11/19 21:03 ED Treatment Course - LABORATORY CBC & Chemistry Diagram: 07/15/19 06:50 07/13/19 06:33 - ADDITIONAL ORDERS Additional order review: Laboratory Results 07/11/19 07/11/19 07/11/19 22:30 22:30 22:30 PT with INR 12.10 INR 1.03 PTT (Actin FS) Sodium Potassium Chloride Carbon Dioxide Anion Gap BUN Creatinine Est GFR (CKD-EPI)AfAm Est GFR (CKD-EPI)NonAf Random Glucose Calcium Total Bilirubin AST ALT Alkaline Phosphatase Total Protein Albumin Stool Occult Blood Negative Blood Type B POSITIVE Antibody Screen Negative Crossmatch See Detail 07/11/19 07/11/19 22:30 22:30 PT with INR INR PTT (Actin FS) 26.3 Sodium Cancelled Potassium Cancelled Chloride Cancelled Carbon Dioxide Cancelled Anion Gap Cancelled BUN Cancelled Creatinine Cancelled Est GFR (CKD-EPI)AfAm Cancelled Est GFR (CKD-EPI)NonAf Cancelled Random Glucose Cancelled Calcium Cancelled Total Bilirubin Cancelled AST Cancelled ALT Cancelled Alkaline Phosphatase Cancelled Total Protein Cancelled Albumin Cancelled Stool Occult Blood Blood Type Antibody Screen Crossmatch 07/11/19 22:30 RBC 3.64 MCV 71.9 L MCHC 30.5 L RDW 21.5 H MPV 9.2 Neutrophils % 59.3 Lymphocytes % 31.0 D Monocytes % 8.8 Eosinophils % 0.3 D Basophils % 0.6 Medical Decision Making - Medical Decision Making 07/12/19 00:[address] Melo 78y/o F hx of htn, hld, copd, diabetes, dementia anemia here for transfusion exertional chest pain to do's follow up cmp, cardiac profile 1 unit of blood ordered and admit wide mediastinum on CXR, sent to imaging documentation improvement specialist for read. BP equal in both arms. pcp: Dr. Jessica Lopez admits to hospitalist. 07/12/19 00:11 CXR FINDINGS 1. Cardiomegaly with enlarged mediastinal silhouette. Multiple attempts were made to obtain prior x-rays for comparison without response till the time of interpretation. If this is a new finding then further evaluation with CTA chest would be necessary. 2. Mild pulmonary vascular congestion. 3. Right basilar atelectasis versus scarring CTA chest, abdomen and pelvis to r/o aortic dissection 07/12/19 01:56 verbal consent obtained from health care proxy Chantal Kam for blood transfusion. 07/12/19 02:52 07/12/19 04:45 CTA results 1. Aneurysmal dilatation of the descending and abdominal aorta, as described above with findings indicative of chronic dissection and with mural thrombus in the mid abdominal aorta reducing the aortic caliber by 50%. 2. Extensive ASVD, as noted above. 3. Findings indicative of colitis. 4. Hepatic steatosis. 5. Cardiomegaly. Other findings as noted above. 07/17/19 08:22 Discharge - Discharge Information Problems reviewed: Yes Clinical Impression/Diagnosis: Aortic dissection, abdominal Anemia Qualifiers: Anemia type: unspecified type Qualified Code(s): D64.9 - Anemia, unspecified Condition: Good Disposition: [facility] - Follow up/Referral - Patient Discharge Instructions - Post Discharge Activity
--- NOTE | 2019-07-12 00:40 | PDOC ---
Documentation entered by Howard Thrasher SCRIBE, acting as scribe for Wilbert Renteria MD. Wilbert Renteria MD: This documentation has been prepared by the Anna Marie moffett Nirvannie, SCRIBE, under my direction and personally reviewed by me in its entirety. I confirm that the documentation accurately reflects all work, treatment, procedures, and medical decision making performed by me. Attending Attestation - Resident Resident Name: Tricia Melo - ED Attending Attestation I have performed the following: I have examined & evaluated the patient, The case was reviewed & discussed with the resident, I agree w/resident's findings & plan, Exceptions are as noted - HPI HPI: 07/11/19 23:05 The patient is a 78 year old female, with a significant past medical history of hypertension, hyperlipidemia, COPD, dementia, type 2 DM, depression, who presents to the emergency department with, anemia. As per facility, patient had a hemoglobin of 7.3 on lab work done this morning thus she was sent to the ED for 2 units of blood transfusion. While in the ED, patient's only complaint is mild chest pain this morning that she reports began after bumping into another resident. She reports the CP lasted for a few seconds. Of note, pt reported varying circumstances around the chest pain to different providers . History is limited secondary to patients dementia. Allergies: NKDA - Physicial Exam PE: 07/12/19 00:36 GENERAL: Awake, alert, and oriented to hospital, states her name is Chantelle, does not know date, in no acute distress HEAD: No signs of trauma EYES: EOMI, sclera anicteric, conjunctiva clear ENT: Adentulous, MMM NECK: Normal ROM, supple, no lymphadenopathy, JVD, or masses LUNGS: Breath sounds equal, clear to auscultation bilaterally. No wheezes, and no crackles HEART: Rate 88, slightly irregular, normal S1 and S2, no murmurs, rubs or gallops ABDOMEN: Soft, nontender, normoactive bowel sounds. No guarding, no rebound. No masses EXTREMITIES: Normal range of motion, no edema. No clubbing or cyanosis. No cords, erythema, or tenderness NEUROLOGICAL: Normal speech, cranial nerves intact, equal strength and sensation b/l SKIN: Warm, Dry, normal turgor, no rashes or lesions noted. - Medical Decision Making 07/12/19 00:38 78yo F presents to the ED for hgb 7.3 at [facility], also reporting vague CP history this AM. Asymptomatic at this time. [place] paperwork requests 2 units PRBC Vitals unremarkable Exam wnl, guaic neg brown stool Rpt hgb 8 Plan to transfuse 1 unit for now, and obs for possible CP hx reported to multiple providers Anticipate admission 07/12/19 02:30 CXR with very wide mediastinum Given c/o CP earlier today and pt is poor historian, will obtain CTA to r/o dissection Pt has known prior descending and abd aortic dilatation, also appears to have hx mural thrombus BP in both arms equal, pulse in both legs equal Pt well appearing, BP 134/76 Case has been signed out to Dr. Caro for f/u on CTA, dispo Heart Score/ECG Review #1 07/12/19 00:40 Twelve-lead EKG was performed and reviewed by me. Sinus rhythm, with sinus arrhythmia most likely due to respiratory variation. Rate 87. Normal axis. No ST elevations or T wave inversions.
[2019-07-12 00:55] LABS: ALBUMIN 2.7 g/dl (3.4-5.0); BILIRUBIN,TOTAL 0.3 mg/dL (0.2-1); BLOOD UREA NITROGEN 28.3 mg/dL (7-18); CALCIUM 9.2 mg/dL (8.5-10.1); CREATININE 1.1 mg/dL (0.55-1.3); POTASSIUM 4.4 mmol/L (3.5-5.1); TOT PROT 6.1 g/dl (6.4-8.2)
--- NOTE | 2019-07-12 04:29 | PDOC ---
*Physical Exam - Vital Signs Last Vital Signs Temp Pulse Resp BP Pulse Ox 98 F 90 18 154/89 98 07/11/19 21:03 07/11/19 21:03 07/11/19 21:03 07/11/19 21:03 07/11/19 21:03 ED Treatment Course - LABORATORY CBC & Chemistry Diagram: 07/12/19 11:35 07/12/19 00:01 - ADDITIONAL ORDERS Additional order review: Laboratory Results 07/12/19 07/12/19 07/11/19 00:01 00:01 22:30 PT with INR INR PTT (Actin FS) Sodium 143 Potassium 4.4 Chloride 106 Carbon Dioxide 27 Anion Gap 10 BUN 28.3 H Creatinine 1.1 Est GFR (CKD-EPI)AfAm 55.69 Est GFR (CKD-EPI)NonAf 48.05 Random Glucose 134 H Calcium 9.2 Total Bilirubin 0.3 AST 7 L ALT 19 Alkaline Phosphatase 82 Creatine Kinase 25 L Troponin I 0.02 Total Protein 6.1 L Albumin 2.7 L Stool Occult Blood Blood Type B POSITIVE B POSITIVE Antibody Screen Negative Negative Crossmatch See Detail 07/11/19 07/11/19 07/11/19 22:30 22:30 22:30 PT with INR 12.10 INR 1.03 PTT (Actin FS) Sodium Cancelled Potassium Cancelled Chloride Cancelled Carbon Dioxide Cancelled Anion Gap Cancelled BUN Cancelled Creatinine Cancelled Est GFR (CKD-EPI)AfAm Cancelled Est GFR (CKD-EPI)NonAf Cancelled Random Glucose Cancelled Calcium Cancelled Total Bilirubin Cancelled AST Cancelled ALT Cancelled Alkaline Phosphatase Cancelled Creatine Kinase Troponin I Total Protein Cancelled Albumin Cancelled Stool Occult Blood Negative Blood Type Antibody Screen Crossmatch 07/11/19 07/11/19 22:30 22:30 PT with INR INR PTT (Actin FS) 26.3 Sodium Cancelled Potassium Cancelled Chloride Cancelled Carbon Dioxide Cancelled Anion Gap Cancelled BUN Cancelled Creatinine Cancelled Est GFR (CKD-EPI)AfAm Cancelled Est GFR (CKD-EPI)NonAf Cancelled Random Glucose Cancelled Calcium Cancelled Total Bilirubin Cancelled AST Cancelled ALT Cancelled Alkaline Phosphatase Cancelled Creatine Kinase Cancelled Troponin I Cancelled Total Protein Cancelled Albumin Cancelled Stool Occult Blood Blood Type Antibody Screen Crossmatch 07/11/19 22:30 RBC 3.64 MCV 71.9 L MCHC 30.5 L RDW 21.5 H MPV 9.2 Neutrophils % 59.3 Lymphocytes % 31.0 D Monocytes % 8.8 Eosinophils % 0.3 D Basophils % 0.6 Medical Decision Making - Medical Decision Making 07/12/19 04:27 I received pt on signout and she is awaiting CT result prior to admission: Patient Name: HENNY NASH THIS IS A PRELIMINARY REPORT FROM [facility] DATE OF SERVICE: 2019-07-12 02:57:14 IMAGES: [id number] EXAM: CTA CHEST/ABDOMEN AND CTA PELVIS W/WO CONTR HISTORY: widened mediastinum, ?cp COMPARISON: Portable chest x-ray of 07/11/2019. FINDINGS: On the precontrast exam the the proximalmost ascending aorta and the distal descending aorta are imaged but the rest of the thoracic aorta was not imaged. There is mild hyperdensity seen along the rightward lateral aspect of the distal descending aortic lumen extending into the proximal abdominal aorta and along the left lateral aspect of the mid abdominal aorta. Following IV contrast administration the ascending aorta is normal in caliber. The descending aorta is dilated measuring 4.4 cm AP and 3.9 cm transverse. The proximal through mid abdominal aorta is also dilated with maximum AP dimension of 3.5 cm in maximum transverse dimension of 3.7 cm. The previously identified hyperdense areas correspond to areas of thrombus and these may be related to chronic dissection with the mid abdominal aortic lumen reduced by 50% due to the mural thrombus. No signs of acute dissection are seen. Extensive atherosclerotic calcifications are noted in the aortoiliofemoral system, great vessels, coronary arteries, and abdominal branches. There is narrowing seen of the proximal celiac axis and bilateral proximal renal arteries. The imaged thyroid gland is diminutive in size. No lymphadenopathy is noted in the chest. The heart is mildly enlarged and no pericardial effusion is noted. No central PE is noted. There are groundglass opacities bilaterally, right greater than left. There is trace left pleural effusion. No pneumothorax is noted. A subpleural 2 to 3 mm nodule is seen in the left lower lobe on series 8 image 58. The liver measures 14.9 cm in length and is hypodense. The spleen, gallbladder, and adrenals are unremarkable. The pancreas is atrophic. Cortical thinning is noted in both kidneys. No obvious renal masses are noted. No renal or ureteral calculi are seen and no hydronephrosis is noted. The urinary bladder is unremarkable. No bowel obstruction is noted. There is thickening seen of the wall of the colon from the transverse colon through the rectosigmoid colon with pericolonic stranding and prominence of the vasa recti. The appendix is normal in caliber without evidence of appendicitis. No diverticulitis is noted. No lymphadenopathy is noted in the abdomen/pelvis. No ascites is seen. The uterus is enlarged and demonstrates multiple calcified masses exophytic and extending into the adnexa bilaterally. Osteopenia is noted. Degenerative changes are seen in the imaged spine, hips, and shoulders. No acute osseous changes are noted. IMPRESSION: 1. Aneurysmal dilatation of the descending and abdominal aorta, as described above with findings indicative of chronic dissection and with mural thrombus in the mid abdominal aorta reducing the aortic caliber by 50%. 2. Extensive ASVD, as noted above. 3. Findings indicative of colitis. 4. Hepatic steatosis. 5. Cardiomegaly. Other findings as noted above. 07/12/19 04:28 Pt comes with chest pain. She will be admitted for her chronic aortic dissection. 07/12/19 20:14 Discharge - Discharge Information Problems reviewed: Yes Clinical Impression/Diagnosis: Anemia - Admission Yes - Follow up/Referral - Patient Discharge Instructions - Post Discharge Activity
--- NOTE | 2019-07-12 05:19 | PN ---
Teaching Attending Note Name of Resident: Estella Albarado ATTENDING PHYSICIAN STATEMENT I saw and evaluated the patient. I reviewed the resident's note and discussed the case with the resident. I agree with the resident's findings and plan as documented. SUBJECTIVE: Patient is a 78 year old woman with a PMH of Hypertension, Hyperlipidemia, COPD , Dementia, NIDDM COPD, Fe deficiency anemia, Ulcerative pancolitis and Depression, who was sent from the [place] to the ER for anemia. As per facility, patient had a hemoglobin of 7.3 on lab work done this morning thus she was sent to the ER for 2 units of blood transfusion. While in the ER, patient's only complaint is mild chest pain this morning that she reports began after bumping into another resident. She reports the chest pain lasted for a few seconds. Of note, patient reported varying circumstances around the chest pain to different providers. History is limited secondary to patients dementia. No history of tobacco, alcohol or illicit drug use. OBJECTIVE: Alert Vital Signs Period Temp Pulse Resp BP Sys/Luna Pulse Ox Last 24 Hr 98 F 90 18 154/89 98 HEENT: No Jaundice, eye redness or discharge, PERRLA, EOMI. Normocephalic, atraumatic. External ears are normal and hearing is grossly intact. No nasal discharge. Neck: Supple, nontender. No palpable adenopathy or thyromegaly. No JVD Chest: Good effort. Clear to auscultation and percussion. Heart: Regular. No S3, rub or murmur Abdomen: Not distended, soft, nontender and no HSM. No rebound or guarding. Normal bowel sounds. Ext: Peripheral pulses intact. No leg edema. Skin: Warm and dry. No petechiae or ecchymosis. Diaper rash with areas of maceration. Neuro: Alert. Oriented to person. CN 2-12 grossly intact. Sensation grossly intact in all four extremities and DTR are symmetric. Psych: Appropriate mood and affect. Good insight. Home Medications Medication Instructions Recorded Ergocalciferol (Vitamin D2) 50,000 unit PO WEEKLY 08/23/18 [Vitamin D2] Ferrous Sulfate [Feosol] 325 mg PO DAILY 08/23/18 Ranitidine [Zantac -] 150 mg PO BID 08/23/18 metFORMIN HCL [Metformin HCl ER] 500 mg PO BID 08/23/18 Meclizine HCl 12.5 mg PO DAILY PRN 01/06/19 Mirtazapine [Remeron -] 7.5 mg PO HS 01/06/19 Albuterol 0.083% Nebulizer Katlin 1 neb NEB TID 02/25/19 [Ventolin 0.083% Nebulizer Soln -] Amlodipine Besylate [Norvasc -] 5 mg PO DAILY 02/25/19 Apixaban [Eliquis] 5 mg PO BID 02/25/19 Sennosides [Senna] 2 tab PO HS 02/25/19 Abnormal Lab Results 07/11/19 07/11/19 07/12/19 22:30 22:30 00:01 Hgb 8.0 L Hct 26.2 L MCV 71.9 L MCH 22.0 L MCHC 30.5 L RDW 21.5 H Nucleated RBC % 1 H BUN 28.3 H Random Glucose 134 H AST 7 L Creatine Kinase 25 L Total Protein 6.1 L Albumin 2.7 L Crossmatch See Detail ASSESSMENT AND PLAN: 1. 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 Aneurysmal dilatation of the descending and abdominal aorta, as described above with findings indicative of chronic dissection and with mural thrombus in the mid abdominal aorta reducing the aortic caliber by 50%. b. Extensive ASVD, as noted above. c. Findings indicative of colitis. d. Hepatic steatosis. e. Cardiomegaly CXR shows cardiomegaly, wide mediastinum and unfolded aorta. Anemia likely multifactorial including iron deficiency. PRBC transfusion planned. Will benefit from outpatient IV iron therapy to preempt future blood transfusions. Will treat severe diaper rash with Desitin powder. EKG shows NSR with LVH and no significant ischemic changes. Will continue comprehensive care for all of patients comorbid conditions. 2. Hypoalbuminemia - Possibly due to combined effects of malnutrition and inflammation associated with comorbid chronic conditions. Will ensure adequate dietary protein intake and also consult president + publisher. Urinalysis pending. 3. DM For now, we will hold the home diabetes drugs and implement sliding scale insulin regimen. Provide comprehensive diabetes care with patient teaching and counseling about the importance of adherence to prescribed diabetes regimen, euglycemia, eye care and foot care. 4. JONATHAN/?CKD - Has risk factors for CKD and may also be dehydrated. Will get kidney sonogram, hydrate and monitor urine ouput. Will consult nephrology and avoid nephrotoxic agents such as NSAIDS, aminoglycosides, contrast dyes and certain Alternative medicine products. 5. DVT prophylaxis - On Eliquis 6. Advance directives - DNR/DNI
--- NOTE | 2019-07-12 05:30 | HP ---
CHIEF COMPLAINT: Low Hgb PCP: HISTORY OF PRESENT ILLNESS: Pt is a 78 yo F with PMhx of dementia, HTN, HLD, COPD, IDDM, ISIDRO, aortic aneurysm, ulcerative pancolitis who was made DNR/DNI yesterday sent from [facility] for Hb 7.3 at 9am this morning for transfusion. Pt is demented at baseline and possibly unreliable witnessed, but reported retrosternal chest pain earlier that has since resolved. No SOB, pt reports being able to ambulate with a walker at [facility]. No hematochezia, hematemesis or melena. Pt was admitted here in August and noted to have the fusiform aneurysmal dialtion of aorta and pancolitis. ER course was notable for: (1) CTAP, (2) H/H- 8.0/26.2, MCV-71.9 (3) trop 0.02 Recent Travel: PAST MEDICAL HISTORY: As above PAST SURGICAL HISTORY: Social History: Smoking: Alcohol: Drugs: Allergies No Known Allergies Allergy (Verified 07/11/19 21:06) HOME MEDICATIONS: Home Medications Medication Instructions Recorded Ergocalciferol (Vitamin D2) 50,000 unit PO WEEKLY 08/23/18 [Vitamin D2] Ferrous Sulfate [Feosol] 325 mg PO DAILY 08/23/18 Ranitidine [Zantac -] 150 mg PO BID 08/23/18 metFORMIN HCL [Metformin HCl ER] 500 mg PO BID 08/23/18 Meclizine HCl 12.5 mg PO DAILY PRN 01/06/19 Mirtazapine [Remeron -] 7.5 mg PO HS 01/06/19 Albuterol 0.083% Nebulizer Katlin 1 neb NEB TID 02/25/19 [Ventolin 0.083% Nebulizer Soln -] Amlodipine Besylate [Norvasc -] 5 mg PO DAILY 02/25/19 Apixaban [Eliquis] 5 mg PO BID 02/25/19 Sennosides [Senna] 2 tab PO HS 02/25/19 REVIEW OF SYSTEMS As above PHYSICAL EXAMINATION Vital Signs - 24 hr 07/11/19 21:03 Temperature 98 F Pulse Rate 90 Respiratory 18 Rate Blood Pressure 154/89 O2 Sat by Pulse 98 Oximetry (%) GENERAL: Awake, alert, and oriented to self and place, in no acute distress. HEAD: Normal with no signs of trauma. EYES: Pupils equal, round and reactive to light, lens opacity. EARS, NOSE, THROAT:Edentulous. Moist mucous membranes. NECK: Normal range of motion, supple LUNGS: Breath sounds equal, clear to auscultation bilaterally. No wheezes, and no crackles. HEART: Regular rate and rhythm, normal S1 and S2 without murmur ABDOMEN: Soft, nontender, not distended, normoactive bowel sounds, no guarding LOWER EXTREMITIES: 2+ pulses, warm, well-perfused. No calf tenderness. B/l edema. NEUROLOGICAL: Cranial nerves II-XII intact. Normal speech. Gait not observed PSYCHIATRIC: Cooperative. Good eye contact. Appropriate mood and affect. SKIN: Warm, dry, no rashes Laboratory Results - last 24 hr 07/11/19 07/11/19 07/11/19 22:30 22:30 22:30 WBC 8.5 RBC 3.64 Hgb 8.0 L Hct 26.2 L MCV 71.9 L MCH 22.0 L MCHC 30.5 L RDW 21.5 H Plt Count 283 MPV 9.2 Absolute Neuts (auto) 5.0 Neutrophils % 59.3 Neutrophils % (Manual) 59.0 Band Neutrophils % 4.0 Lymphocytes % 31.0 D Lymphocytes % (Manual) 20.0 Monocytes % 8.8 Monocytes % (Manual) 8 Eosinophils % 0.3 D Eosinophils % (Manual) 1.0 Basophils % 0.6 Basophils % (Manual) 0.0 Nucleated RBC % 1 H Hypochromia 2+ Anisocytosis 2+ Ovalocytes Few Fragmented RBCs Few PT with INR INR PTT (Actin FS) 26.3 Sodium Cancelled Potassium Cancelled Chloride Cancelled Carbon Dioxide Cancelled Anion Gap Cancelled BUN Cancelled Creatinine Cancelled Est GFR (CKD-EPI)AfAm Cancelled Est GFR (CKD-EPI)NonAf Cancelled Random Glucose Cancelled Calcium Cancelled Total Bilirubin Cancelled AST Cancelled ALT Cancelled Alkaline Phosphatase Cancelled Creatine Kinase Cancelled Troponin I Cancelled Total Protein Cancelled Albumin Cancelled Stool Occult Blood Blood Type Antibody Screen Crossmatch 07/11/19 07/11/19 07/11/19 22:30 22:30 22:30 WBC RBC Hgb Hct MCV MCH MCHC RDW Plt Count MPV Absolute Neuts (auto) Neutrophils % Neutrophils % (Manual) Band Neutrophils % Lymphocytes % Lymphocytes % (Manual) Monocytes % Monocytes % (Manual) Eosinophils % Eosinophils % (Manual) Basophils % Basophils % (Manual) Nucleated RBC % Hypochromia Anisocytosis Ovalocytes Fragmented RBCs PT with INR 12.10 INR 1.03 PTT (Actin FS) Sodium Cancelled Potassium Cancelled Chloride Cancelled Carbon Dioxide Cancelled Anion Gap Cancelled BUN Cancelled Creatinine Cancelled Est GFR (CKD-EPI)AfAm Cancelled Est GFR (CKD-EPI)NonAf Cancelled Random Glucose Cancelled Calcium Cancelled Total Bilirubin Cancelled AST Cancelled ALT Cancelled Alkaline Phosphatase Cancelled Creatine Kinase Troponin I Total Protein Cancelled Albumin Cancelled Stool Occult Blood Negative Blood Type Antibody Screen Crossmatch 07/11/19 07/12/19 07/12/19 22:30 00:01 00:01 WBC RBC Hgb Hct MCV MCH MCHC RDW Plt Count MPV Absolute Neuts (auto) Neutrophils % Neutrophils % (Manual) Band Neutrophils % Lymphocytes % Lymphocytes % (Manual) Monocytes % Monocytes % (Manual) Eosinophils % Eosinophils % (Manual) Basophils % Basophils % (Manual) Nucleated RBC % Hypochromia Anisocytosis Ovalocytes Fragmented RBCs PT with INR INR PTT (Actin FS) Sodium 143 Potassium 4.4 Chloride 106 Carbon Dioxide 27 Anion Gap 10 BUN 28.3 H Creatinine 1.1 Est GFR (CKD-EPI)AfAm 55.69 Est GFR (CKD-EPI)NonAf 48.05 Random Glucose 134 H Calcium 9.2 Total Bilirubin 0.3 AST 7 L ALT 19 Alkaline Phosphatase 82 Creatine Kinase 25 L Troponin I 0.02 Total Protein 6.1 L Albumin 2.7 L Stool Occult Blood Blood Type B POSITIVE B POSITIVE Antibody Screen Negative Negative Crossmatch See Detail Active Medications Zinc Oxide (Desitin Diaper Rash Oint -) 1 applic TP ASDIR PRN PRN Reason: HYGEINE ASSESSMENT/PLAN: Pt is a 78 yo F with PMhx of dementia, HTN, HLD, COPD, IDDM, ISIDRO, aortic aneurysm, ulcerative pancolitis who was made DNR/DNI yesterday sent from [facility] for Hb 7.3 at 9am this morning for transfusion. Anemia: Acute on chronic microcytic anemia Pt documented to have iron def anemia in past, on PO iron Pt with active diaper rash transfuse 1unit PRBC- pending Post transfusion CBC Appears pt was on eliquis- pending med rec, will hold dementia Pt appears oriented to person and place Cont to monitor Diaper rash Desitin IDDM, ISS, DM diet HTN HLD, COPD, ISIDRO, aortic aneurysm, ulcerative pancolitis Pending med rec for chronic problems Monitor [facility] transfusion CBC stable Hold chemical prophylaxis with anemia DNI/DNR Visit type - Emergency Visit Emergency Visit: Yes ED Registration Date: 07/12/19 Care time: The patient presented to the Emergency Department on the above date and was hospitalized for further evaluation of their emergent condition. - New Patient This patient is new to me today: Yes Date on this admission: 07/12/19 - Critical Care Critical Care patient: No ATTENDING PHYSICIAN STATEMENT I saw and evaluated the patient. I reviewed the resident's note and discussed the case with the resident. I agree with the resident's findings and plan as documented. SUBJECTIVE: OBJECTIVE: ASSESSMENT AND PLAN:
[2019-07-12] MEDS ORDERED: COD LIVER OIL/ZINC OXIDE PASTE 56 GM TUBE TP PRN (06:23)
[2019-07-12] MEDS: INSULIN SLIDING SCALE (NOVOLOG) 1 VIAL SQ SCH ×3 (08:10→22:26)
[2019-07-12] MEDS ORDERED: dilTIAZem HCL 125 MG/25 ML - 25 ML VIAL ONE (10:37)
[2019-07-12] MEDS ORDERED: METOPROLOL TARTRATE 5 MG/5 ML VIAL ONE (10:45)
--- NOTE | 2019-07-12 10:59 | CON.CARD ---
Consult Consult Specialty:: Cardiology Referred by:: Dr. Jessica Lopez Reason for Consultation:: Cardiac evaluation - History of Present Illness Chief Complaint: AF with RVR History of Present Illness: Patient is a 78 year old female admitted to ED from [facility] with underlying history of organic brain/dementia, poor historian, HTN, hypercholesterolemia, DM , COPD, history of aortic aneurysm, history of ulcerative pancolitis who presented with anemia with Hgb 7.3 for transfusion. Currently, cardiology was called due to AF with RVR at 170's. She was seen earlier this year by [facility] presumably as a service case. 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 Of note, she has a fusiform aneurysmal dilation of the aorta according to medical record. She does not appear to be in distress this time. Medical record indicates use of Eliquis in the past, but currently, does not appear to be on it. - History Source History Provided By: Medical Record Limitations to Obtaining History: Dementia - Past Medical History ENTERTAINMENT & MEDIA CORRESPONDENT: Yes: Dementia Cardio/Vascular: Yes: AFIB, Aneurysm, CAD, HTN, Hyperlipdemia Heme/Onc: Yes: Anemia Endocrine: Yes: Diabetes Mellitus - Past Surgical History Additional Surgical History: unknown - Alcohol/Substance Use Hx Alcohol Use: No - Smoking History Smoking history: Former smoker Have you smoked in the past 12 months: No Home Medications - Allergies Allergies/Adverse Reactions: Allergies Allergy/AdvReac Type Severity Reaction Status Date / Time No Known Allergies Allergy Verified 07/11/19 21:06 - Home Medications Home Medications: Ambulatory Orders Ergocalciferol (Vitamin D2) [Vitamin D2] 50,000 unit PO WEEKLY 08/23/18 Ferrous Sulfate [Feosol] 325 mg PO DAILY 08/23/18 metFORMIN HCL [Metformin HCl ER] 1,000 mg PO BID 08/23/18 Meclizine HCl 12.5 mg PO DAILY PRN 01/06/19 Mirtazapine [Remeron -] 15 mg PO HS 01/06/19 Albuterol 0.083% Nebulizer [place] [Ventolin 0.083% Nebulizer Soln -] 1 neb NEB TID 02/25/19 Amlodipine Besylate [Norvasc -] 5 mg PO DAILY 02/25/19 Apixaban [Eliquis] 5 mg PO BID 02/25/19 Sennosides [Senna] 2 tab PO HS 02/25/19 Albuterol 0.083% Nebulizer [place] [Ventolin 0.083% Nebulizer Soln -] 1 neb NEB Q6H 07/12/19 Ascorbate Calcium [Vitamin C] 500 mg PO DAILY 07/12/19 Atorvastatin Calcium 10 mg PO HS 07/12/19 Famotidine [Pepcid] 40 mg PO BID 07/12/19 Insulin Lispro [Humalog] See Protocol SQ 07/12/19 Family Medical History Family History: Unable to Obtain Review of Systems Unable to obtain ROS, reason: Unable to obtain Vital Signs: Vital Signs Temperature 97.8 F 07/12/19 05:49 Pulse Rate 173 H 07/12/19 10:15 Respiratory Rate 17 07/12/19 10:15 Blood Pressure 149/89 07/12/19 10:15 O2 Sat by Pulse Oximetry (%) 99 07/12/19 10:15 Neck: Yes: Supple Respiratory: Yes: Diminished Gastrointestinal: Yes: Normal Bowel Sounds, Soft. No: Tenderness Cardiovascular: Yes: Tachycardia, Pulse Irregular JVD: No PMI: Non-Displaced Heart Sounds: Yes: S1, S2 Murmur: Yes: Systolic Murmur, Grade 1 Edema: Yes Edema: LLE: Trace, RLE: Trace - Other Data Labs, Other Data: CBC, BMP 07/11/19 22:30 07/12/19 00:01 INR, PTT INR 1.03 (0.83-1.09) 07/11/19 22:30 Troponin, BNP 07/11/19 07/12/19 22:30 00:01 Troponin I Cancelled 0.02 Laboratory Results - last 24 hr 07/11/19 07/11/19 07/11/19 22:30 22:30 22:30 WBC 8.5 RBC 3.64 Hgb 8.0 L Hct 26.2 L MCV 71.9 L MCH 22.0 L MCHC 30.5 L RDW 21.5 H Plt Count 283 MPV 9.2 Absolute Neuts (auto) 5.0 Neutrophils % 59.3 Neutrophils % (Manual) 59.0 Band Neutrophils % 4.0 Lymphocytes % 31.0 D Lymphocytes % (Manual) 20.0 Monocytes % 8.8 Monocytes % (Manual) 8 Eosinophils % 0.3 D Eosinophils % (Manual) 1.0 Basophils % 0.6 Basophils % (Manual) 0.0 Nucleated RBC % 1 H Hypochromia 2+ Anisocytosis 2+ Ovalocytes Few Fragmented RBCs Few PT with INR INR PTT (Actin FS) 26.3 Sodium Cancelled Potassium Cancelled Chloride Cancelled Carbon Dioxide Cancelled Anion Gap Cancelled BUN Cancelled Creatinine Cancelled Est GFR (CKD-EPI)AfAm Cancelled Est GFR (CKD-EPI)NonAf Cancelled POC Glucometer Random Glucose Cancelled Calcium Cancelled Total Bilirubin Cancelled AST Cancelled ALT Cancelled Alkaline Phosphatase Cancelled Creatine Kinase Cancelled Troponin I Cancelled Total Protein Cancelled Albumin Cancelled Stool Occult Blood Blood Type Antibody Screen Crossmatch 07/11/19 07/11/19 07/11/19 22:30 22:30 22:30 WBC RBC Hgb Hct MCV MCH MCHC RDW Plt Count MPV Absolute Neuts (auto) Neutrophils % Neutrophils % (Manual) Band Neutrophils % Lymphocytes % Lymphocytes % (Manual) Monocytes % Monocytes % (Manual) Eosinophils % Eosinophils % (Manual) Basophils % Basophils % (Manual) Nucleated RBC % Hypochromia Anisocytosis Ovalocytes Fragmented RBCs PT with INR 12.10 INR 1.03 PTT (Actin FS) Sodium Cancelled Potassium Cancelled Chloride Cancelled Carbon Dioxide Cancelled Anion Gap Cancelled BUN Cancelled Creatinine Cancelled Est GFR (CKD-EPI)AfAm Cancelled Est GFR (CKD-EPI)NonAf Cancelled POC Glucometer Random Glucose Cancelled Calcium Cancelled Total Bilirubin Cancelled AST Cancelled ALT Cancelled Alkaline Phosphatase Cancelled Creatine Kinase Troponin I Total Protein Cancelled Albumin Cancelled Stool Occult Blood Negative Blood Type Antibody Screen Crossmatch 07/11/19 07/12/19 07/12/19 22:30 00:01 00:01 WBC RBC Hgb Hct MCV MCH MCHC RDW Plt Count MPV Absolute Neuts (auto) Neutrophils % Neutrophils % (Manual) Band Neutrophils % Lymphocytes % Lymphocytes % (Manual) Monocytes % Monocytes % (Manual) Eosinophils % Eosinophils % (Manual) Basophils % Basophils % (Manual) Nucleated RBC % Hypochromia Anisocytosis Ovalocytes Fragmented RBCs PT with INR INR PTT (Actin FS) Sodium 143 Potassium 4.4 Chloride 106 Carbon Dioxide 27 Anion Gap 10 BUN 28.3 H Creatinine 1.1 Est GFR (CKD-EPI)AfAm 55.69 Est GFR (CKD-EPI)NonAf 48.05 POC Glucometer Random Glucose 134 H Calcium 9.2 Total Bilirubin 0.3 AST 7 L ALT 19 Alkaline Phosphatase 82 Creatine Kinase 25 L Troponin I 0.02 Total Protein 6.1 L Albumin 2.7 L Stool Occult Blood Blood Type B POSITIVE B POSITIVE Antibody Screen Negative Negative Crossmatch See Detail AF with RVR now Initially ECG revealed sinus rhythm with nonspecific ST-T abnormality, LVH Imaging - Results Chest X-ray: Report Reviewed (Large heart, toturous aorta) Cat Scan: Pending (Chest CT) EKG: Report Reviewed Problem List - Problems (1) HTN (hypertension) Code(s): I10 - ESSENTIAL (PRIMARY) HYPERTENSION (2) Hypercholesterolemia Code(s): E78.00 - PURE HYPERCHOLESTEROLEMIA, UNSPECIFIED (3) Aortic aneurysm Code(s): I71.9 - AORTIC ANEURYSM OF UNSPECIFIED SITE, WITHOUT RUPTURE (4) Diabetes mellitus Code(s): E11.9 - TYPE 2 DIABETES MELLITUS WITHOUT COMPLICATIONS (5) Atrial fibrillation with RVR Code(s): I48.91 - UNSPECIFIED ATRIAL FIBRILLATION (6) Ulcerative pancolitis Code(s): K51.00 - ULCERATIVE (CHRONIC) PANCOLITIS WITHOUT COMPLICATIONS (7) Dementia Code(s): F03.90 - UNSPECIFIED DEMENTIA WITHOUT BEHAVIORAL DISTURBANCE (8) Anemia Code(s): D64.9 - ANEMIA, UNSPECIFIED Assessment/Plan 1. PAF now in AF with RVR 2. HTN 3. Hypercholesterolemia 4. Aortic aneurysm 5. DM 6. Organic brain/dementia 7. History of ulcerative pancolitis 8. Anemia PLAN: 1. Given IV Cardizem push and IV Lopressor in attempts to rate control. If remains in RVR, may try Cardizem drip 2. Add PO beta padmini - Metoprolol and uptitrate as tolerated 3. Ideally will need to be anticoagulated unless contraindicated. In the interim , start Heparin drip. If feasible eventually DOAC such as Eliquis can be started 4. Echocardiography on Sunday to assess LV/RV and valvular function 5. Monitor H/H Discussed with Dr. John Scott MD
[2019-07-12] MEDS ORDERED: dilTIAZem HCL 50 MG/10 ML - 10 ML VIAL IVPUSH ONE (11:00)
[2019-07-12] MEDS ORDERED: METOPROLOL TARTRATE 5 MG/5 ML VIAL IVPUSH ONE (11:18)
[2019-07-12] MEDS ORDERED: METOPROLOL TARTRATE 5 MG/5 ML VIAL IVPUSH PRN (11:18)
[2019-07-12] MEDS ORDERED: HEPARIN NA (PORCINE) 5,000 UNITS/ML 1ML VIAL IVPUSH PRN ×2 (11:20)
[2019-07-12] MEDS ORDERED: DILTIAZEM INJECTION 125 MG in DEXTROSE 5%-WATER - 100 ML IVPB SCH (11:30)
[2019-07-12] MEDS ORDERED: HEPARIN INFUSION - 25,000 UNITS/500 ML INFUS.BAG IVPB SCH (11:30)
[2019-07-12 12:05] LABS: HEMATOCRIT 29.7 % (32.4-45.2); HEMOGLOBIN 9.4 GM/dL (10.7-15.3); MCHC 31.6 g/dl (32.0-36.0); MEAN CELL VOLUME 72.7 fl (80-96); MEAN PLT VOLUME 8.7 fl (7.5-11.1); PLATELET COUNT 324 K/MM3 (134-434); RBC 4.09 M/mm3 (3.60-5.2); RDW 22.3 % (11.6-15.6); WHITE BLOOD COUNT 10.5 K/mm3 (4.0-10.0)
[2019-07-12] MEDS ORDERED: HEPARIN INFUSION - 25,000 UNITS/500 ML INFUS.BAG IVPB ONE (12:27)
--- NOTE | 2019-07-12 12:34 | PN ---
Progress Note, Physician History of Present Illness: pt seen/ examined in er. chart is reviewed In Afib- rapid- Coardizem i/v ordered Seen with Dr. Scott in er Will start on heparin drip detention records reviewed Pt not on Eliquis - Current Medication List Current Medications: Active Medications Heparin Sodium (Porcine) (Heparin -) 1,000 unit IVPUSH PRN PRN PRN Reason: Heparin Heparin Sodium (Porcine) (Heparin -) 5,000 unit IVPUSH PRN PRN PRN Reason: Heparin Diltiazem HCl 125 mg/ Dextrose 125 mls @ 5 mls/hr IVPB TITR [facility]; Protocol Heparin Sodium/Dextrose (Heparin Infusion -) 25,000 units in 500 mls @ 16 mls/ hr IVPB TITR [facility]; Protocol Insulin Aspart (Novolog Vial Sliding Scale -) 1 vial SQ ACHS [facility]; Protocol Last Admin: 07/12/19 11:49 Dose: Not Given Metoprolol Tartrate (Lopressor Injection -) 5 mg IVPUSH Q4H PRN PRN Reason: HYPERTENSION Metoprolol Tartrate (Lopressor -) 25 mg PO BID [facility] Zinc Oxide (Desitin Diaper Rash Oint -) 1 applic TP ASDIR PRN PRN Reason: HYGEINE - Objective Vital Signs: Vital Signs Temperature 97.8 F 07/12/19 05:49 Pulse Rate 173 H 07/12/19 10:15 Respiratory Rate 17 07/12/19 10:15 Blood Pressure 105/90 07/12/19 10:25 O2 Sat by Pulse Oximetry (%) 99 07/12/19 10:15 Constitutional: Yes: No Distress, Calm Eyes: Yes: Conjunctiva Clear Neck: Yes: Supple Cardiovascular: Yes: Pulse Irregular Respiratory: Yes: Diminished Gastrointestinal: Yes: Soft Edema: No Neurological: Yes: Alert Labs: CBC, BMP 07/12/19 11:35 07/12/19 00:01 INR, PTT INR 1.03 (0.83-1.09) 07/11/19 22:30 - ....Imaging Chest X-ray: Report Reviewed Cat Scan: Pending EKG: Pending Problem List - Problems (1) Anemia Code(s): D64.9 - ANEMIA, UNSPECIFIED (2) Aortic aneurysm Code(s): I71.9 - AORTIC ANEURYSM OF UNSPECIFIED SITE, WITHOUT RUPTURE (3) Atrial fibrillation with RVR Code(s): I48.91 - UNSPECIFIED ATRIAL FIBRILLATION (4) Dementia Code(s): F03.90 - UNSPECIFIED DEMENTIA WITHOUT BEHAVIORAL DISTURBANCE (5) Diabetes mellitus Code(s): E11.9 - TYPE 2 DIABETES MELLITUS WITHOUT COMPLICATIONS (6) Hypercholesterolemia Code(s): E78.00 - PURE HYPERCHOLESTEROLEMIA, UNSPECIFIED Assessment/Plan Monitor on Tele Cardizem / heparin drip monitor cbc/ lytes d/w rn/ Dr. Scott also Condition stable but gaurded will follow
[2019-07-12] MEDS ORDERED: AMIODARONE HCL 150 MG/3 ML VIAL ONE (14:30)
[2019-07-12] MEDS ORDERED: AMIODARONE HCL 150 MG/3 ML VIAL IVPB ONE (14:37)
[2019-07-12] MEDS ORDERED: AMIODARONE IN DEXTROSE,ISO-OSM 360 MG/200 ML BAG IVPB ONE (15:30)
[2019-07-12] MEDS ORDERED: LORazepam 2 MG/ML SDV VIAL IVPUSH ONE (21:41)
[2019-07-12] MEDS ORDERED: METOPROLOL TARTRATE 25 MG TABLET (FP) PO SCH (22:00)
--- NOTE | 2019-07-12 23:14 | EKG ---
Test Reason : Blood Pressure : / mmHG Vent. Rate : 087 BPM Atrial Rate : 087 BPM P-R Int : 132 ms QRS Dur : 070 ms QT Int : 356 ms P-R-T Axes : 036 -22 033 degrees QTc Int : 428 ms SINUS RHYTHM WITH MARKED SINUS ARRHYTHMIA MINIMAL VOLTAGE CRITERIA FOR LVH, MAY BE NORMAL VARIANT BORDERLINE ECG WHEN COMPARED WITH ECG OF 23-AUG-2018 18:05, PREMATURE VENTRICULAR COMPLEXES ARE NO LONGER SEEN T WAVE VARIATION Confirmed by OLENA SIMEON MD ([id number]) on 07/12/2019 11:14:34 PM Referred By: Confirmed By:OLENA SIMEON MD
[2019-07-13 06:41] VITALS: BMI 21.7
[2019-07-13 06:57] LABS: BASO % 1.3 % (0-2.0); EOS % 1.3 % (0-4.5); HEMATOCRIT 28.2 % (32.4-45.2); HEMOGLOBIN 9.1 GM/dL (10.7-15.3); MCH 23.4 pg (25.7-33.7); MCHC 32.1 g/dl (32.0-36.0); MEAN CELL VOLUME 72.9 fl (80-96); MEAN PLT VOLUME 9.2 fl (7.5-11.1); MONO % 5.7 % (3.8-10.2); NEUT % 52.7 % (42.8-82.8); PLATELET COUNT 279 K/MM3 (134-434); RBC 3.87 M/mm3 (3.60-5.2); RDW 22.5 % (11.6-15.6); WHITE BLOOD COUNT 7.6 K/mm3 (4.0-10.0)
--- NOTE | 2019-07-13 08:44 | PN ---
Progress Note, Physician Chief Complaint: Not in distress Underlying organic brain Remains in sinus rhythm History of Present Illness: Patient was seen and examined. Awake. Chart was reviewed Clinically stable - Current Medication List Current Medications: Active Medications Heparin Sodium (Porcine) (Heparin -) 1,000 unit IVPUSH PRN PRN PRN Reason: Heparin Heparin Sodium (Porcine) (Heparin -) 5,000 unit IVPUSH PRN PRN PRN Reason: Heparin Last Admin: 07/13/19 00:30 Dose: 5,000 unit Diltiazem HCl 125 mg/ Dextrose 125 mls @ 5 mls/hr IVPB TITR [facility]; Protocol Last Titration: 07/12/19 15:01 Dose: 0 mg/hr, 0 mls/hr Heparin Sodium/Dextrose (Heparin Infusion -) 25,000 units in 500 mls @ 16 mls/ hr IVPB TITR [facility]; Protocol Last Titration: 07/13/19 00:30 Dose: 950 units/hr, 19 mls/hr Insulin Aspart (Novolog Vial Sliding Scale -) 1 vial SQ ACHS [facility]; Protocol Last Admin: 07/12/19 22:26 Dose: 6 units Metoprolol Tartrate (Lopressor Injection -) 5 mg IVPUSH Q4H PRN PRN Reason: HYPERTENSION Metoprolol Tartrate (Lopressor -) 25 mg PO BID [facility] Last Admin: 07/12/19 22:16 Dose: 25 mg Zinc Oxide (Desitin Diaper Rash Oint -) 1 applic TP ASDIR PRN PRN Reason: HYGEINE - Objective Vital Signs: Vital Signs Temperature 98.0 F 07/13/19 05:29 Pulse Rate 81 07/13/19 05:29 Respiratory Rate 18 07/13/19 05:29 Blood Pressure 157/95 07/13/19 05:29 O2 Sat by Pulse Oximetry (%) 96 07/12/19 19:00 Neck: Yes: Supple Cardiovascular: Yes: Regular Rate and Rhythm, Murmur (SM), S1, S2 Respiratory: Yes: Diminished Gastrointestinal: Yes: Normal Bowel Sounds, Soft. No: Tenderness Edema: No Labs: CBC, BMP 07/13/19 06:33 INR, PTT INR 1.03 (0.83-1.09) 07/11/19 22:30 Problem List - Problems (1) HTN (hypertension) Code(s): I10 - ESSENTIAL (PRIMARY) HYPERTENSION (2) Hypercholesterolemia Code(s): E78.00 - PURE HYPERCHOLESTEROLEMIA, UNSPECIFIED (3) Aortic aneurysm Code(s): I71.9 - AORTIC ANEURYSM OF UNSPECIFIED SITE, WITHOUT RUPTURE (4) Diabetes mellitus Code(s): E11.9 - TYPE 2 DIABETES MELLITUS WITHOUT COMPLICATIONS (5) Atrial fibrillation with RVR Code(s): I48.91 - UNSPECIFIED ATRIAL FIBRILLATION (6) Ulcerative pancolitis Code(s): K51.00 - ULCERATIVE (CHRONIC) PANCOLITIS WITHOUT COMPLICATIONS (7) Dementia Code(s): F03.90 - UNSPECIFIED DEMENTIA WITHOUT BEHAVIORAL DISTURBANCE (8) Anemia Code(s): D64.9 - ANEMIA, UNSPECIFIED Assessment/Plan 1. PAF converted to sinus rhythm 2. HTN 3. Hypercholesterolemia 4. Aortic aneurysm 5. DM 6. Organic brain/dementia 7. History of ulcerative pancolitis 8. Anemia PLAN: 1. Uptitrate Metoprolol to 50 mg BID as tolerated. Add ARB for BP control 2. Discontinue Heparin drip. Start Eliquis 5 mg BID and monitor CBC 3. Echocardiography on Sunday to assess LV/RV and valvular function 4. Monitor H/H Chung Scott MD
[2019-07-13 08:49] LABS: ALBUMIN 2.6 g/dl (3.4-5.0); BILIRUBIN,TOTAL 0.6 mg/dL (0.2-1); BLOOD UREA NITROGEN 20.9 mg/dL (7-18); CALCIUM 8.7 mg/dL (8.5-10.1); CREATININE 0.7 mg/dL (0.55-1.3); POTASSIUM 3.5 mmol/L (3.5-5.1); TOT PROT 5.9 g/dl (6.4-8.2)
[2019-07-13] MEDS: LOSARTAN POTASSIUM 50 MG TABLET (FP) PO SCH (10:14)
[2019-07-13] MEDS: METOPROLOL TARTRATE 50 MG TABLET (FP) PO SCH ×2 (10:14→21:06)
[2019-07-13] MEDS: APIXABAN 5 MG TABLET PO SCH ×2 (10:14→21:06)
[2019-07-13] MEDS: INSULIN SLIDING SCALE (NOVOLOG) 1 VIAL SQ SCH ×3 (11:45→21:08)
[2019-07-13] MEDS ORDERED: ALPRAZolam 0.25 MG TABLET PO PRN (13:07)
--- NOTE | 2019-07-13 13:07 | PN ---
Progress Note (short form) - Note Progress Note: Pt seen/ examined awake/ comfortable calm now but was very agitated last night. denies pain cardiology f/u noted-- Switched to Eliquis Ct chest/ abd also reviewed-- Chronic thrombus-Mural Vital Signs Temp 98.0 F 07/13/19 05:29 Pulse 81 07/13/19 05:29 Resp 18 07/13/19 05:29 BP 157/95 07/13/19 05:29 Pulse Ox 96 07/12/19 19:00 Intake & Output 07/12/19 07/13/19 07/13/19 23:59 11:59 23:59 Intake Total 100 152 Balance 100 152 Weight 122 lb 6.4 oz Intake: IV 152 HEPARIN INFUSION - 25,000 152 units In 500 ml @ 800 UNITS/HR 16 mls/hr IVPB TITR [facility] Rx#:[id number] Oral 100 Other: Voiding Method Incontinent Incontinent Bowel Movement No Height 5 ft 3 in Body Mass Index (BMI) 21.7 Weight Measurement Method Standing Scale Active Medications Apixaban (Eliquis -) 5 mg PO BID [facility] Last Admin: 07/13/19 10:14 Dose: 5 mg Insulin Aspart (Novolog Vial Sliding Scale -) 1 vial SQ ACHS [facility]; Protocol Last Admin: 07/12/19 22:26 Dose: 6 units Losartan Potassium (Cozaar -) 25 mg PO DAILY [facility] Last Admin: 07/13/19 10:14 Dose: 25 mg Metoprolol Tartrate (Lopressor Injection -) 5 mg IVPUSH Q4H PRN PRN Reason: HYPERTENSION Metoprolol Tartrate (Lopressor -) 50 mg PO BID [facility] Last Admin: 07/13/19 10:14 Dose: 50 mg Zinc Oxide (Desitin Diaper Rash Oint -) 1 applic TP ASDIR PRN PRN Reason: HYGEINE CBC, BMP 07/13/19 06:33 07/13/19 06:33 Physical Exam Constitutional: Yes: No Distress, Calm now Eyes: Yes: Conjunctiva Clear Neck: Yes: Supple Cardiovascular: Yes: Pulse Irregular Respiratory: Yes: Diminished Gastrointestinal: Yes: Soft Edema: No Neurological: Yes: Alert Assessment/Plan Monitor on Tele Cardizem heparin drip-- d/misti - Eliquis monitor cbc/ lytes xanax for anxiety wwill add seroqule also Condition stable but gaurded will follow Pt is dnr/Di Problem List - Problems (1) Anemia Code(s): D64.9 - ANEMIA, UNSPECIFIED (2) Aortic aneurysm Code(s): I71.9 - AORTIC ANEURYSM OF UNSPECIFIED SITE, WITHOUT RUPTURE (3) Atrial fibrillation with RVR Code(s): I48.91 - UNSPECIFIED ATRIAL FIBRILLATION (4) Dementia Code(s): F03.90 - UNSPECIFIED DEMENTIA WITHOUT BEHAVIORAL DISTURBANCE (5) Diabetes mellitus Code(s): E11.9 - TYPE 2 DIABETES MELLITUS WITHOUT COMPLICATIONS (6) Hypercholesterolemia Code(s): E78.00 - PURE HYPERCHOLESTEROLEMIA, UNSPECIFIED
[2019-07-13] MEDS: QUEtiapine FUMARATE 25 MG TABLET (FP) PO SCH (21:06)
--- NOTE | 2019-07-14 01:03 | EKG ---
Test Reason : Blood Pressure : / mmHG Vent. Rate : 091 BPM Atrial Rate : 091 BPM P-R Int : 118 ms QRS Dur : 076 ms QT Int : 350 ms P-R-T Axes : 012 -12 050 degrees QTc Int : 430 ms SINUS RHYTHM WITH SINUS ARRHYTHMIA WITH OCCASIONAL PREMATURE VENTRICULAR COMPLEXES OTHERWISE NORMAL ECG WHEN COMPARED WITH ECG OF 12-JUL-2019 10:05, SINUS RHYTHM HAS REPLACED ATRIAL FIBRILLATION VENT. RATE HAS DECREASED BY 85 BPM VENTRICULAR ECTOPIES ARE SEEN Confirmed by OLENA SIMEON MD ([id number]) on 07/14/2019 1:03:10 AM Referred By: Confirmed By:OLENA SIMEON MD
[2019-07-14] MEDS: INSULIN SLIDING SCALE (NOVOLOG) 1 VIAL SQ SCH ×6 (06:05→22:01)
[2019-07-14 06:43] LABS: HEMATOCRIT 28.1 % (32.4-45.2); HEMOGLOBIN 8.8 GM/dL (10.7-15.3); MCH 23.2 pg (25.7-33.7); MCHC 31.3 g/dl (32.0-36.0); MEAN CELL VOLUME 74.1 fl (80-96); MEAN PLT VOLUME 8.7 fl (7.5-11.1); PLATELET COUNT 291 K/MM3 (134-434); WHITE BLOOD COUNT 7.7 K/mm3 (4.0-10.0)
[2019-07-14] MEDS: LOSARTAN POTASSIUM 50 MG TABLET (FP) PO SCH (09:41)
[2019-07-14] MEDS: APIXABAN 5 MG TABLET PO SCH ×2 (09:42→22:02)
[2019-07-14] MEDS: METOPROLOL TARTRATE 50 MG TABLET (FP) PO SCH ×2 (09:42→22:02)
--- NOTE | 2019-07-14 09:42 | PN ---
Progress Note, Physician History of Present Illness: Episodes of PAF with RVR, patient voices no complaints. - Current Medication List Current Medications: Active Medications Alprazolam (Xanax -) 0.25 mg PO Q8H PRN PRN Reason: ANXIETY Apixaban (Eliquis -) 5 mg PO BID [facility] Last Admin: 07/13/19 21:06 Dose: 5 mg Insulin Aspart (Novolog Vial Sliding Scale -) 1 vial SQ ACHS [facility]; Protocol Last Admin: 07/14/19 06:05 Dose: 2 units Losartan Potassium (Cozaar -) 25 mg PO DAILY [facility] Last Admin: 07/13/19 10:14 Dose: 25 mg Metoprolol Tartrate (Lopressor Injection -) 5 mg IVPUSH Q4H PRN PRN Reason: HYPERTENSION Metoprolol Tartrate (Lopressor -) 50 mg PO BID [facility] Last Admin: 07/13/19 21:06 Dose: 50 mg Quetiapine Fumarate (Seroquel -) 25 mg PO HS [facility] Last Admin: 07/13/19 21:06 Dose: 25 mg Zinc Oxide (Desitin Diaper Rash Oint -) 1 applic TP ASDIR PRN PRN Reason: HYGEINE - Objective Vital Signs: Vital Signs Temperature 98.3 F 07/14/19 09:00 Pulse Rate 61 07/14/19 09:00 Respiratory Rate 18 07/14/19 09:00 Blood Pressure 144/70 07/14/19 09:00 O2 Sat by Pulse Oximetry (%) 98 07/13/19 21:00 Constitutional: Yes: No Distress, Calm, Thin Neck: Yes: Supple Cardiovascular: Yes: Regular Rate and Rhythm Respiratory: Yes: Regular, Diminished, On Nasal O2 Gastrointestinal: Yes: Normal Bowel Sounds, Soft Edema: No Labs: CBC, BMP 07/14/19 05:30 07/13/19 06:33 INR, PTT INR 1.03 (0.83-1.09) 07/11/19 22:30 - ....Imaging EKG: Report Reviewed (Tele: PAF->SR) Problem List - Problems (1) Anemia Code(s): D64.9 - ANEMIA, UNSPECIFIED Qualifiers: Anemia type: unspecified type Qualified Code(s): D64.9 - Anemia, unspecified (2) Aortic aneurysm Code(s): I71.9 - AORTIC ANEURYSM OF UNSPECIFIED SITE, WITHOUT RUPTURE (3) Atrial fibrillation with RVR Code(s): I48.91 - UNSPECIFIED ATRIAL FIBRILLATION (4) Dementia Code(s): F03.90 - UNSPECIFIED DEMENTIA WITHOUT BEHAVIORAL DISTURBANCE Qualifiers: Dementia type: unspecified type Dementia behavioral disturbance: without behavioral disturbance Qualified Code(s): F03.90 - Unspecified dementia without behavioral disturbance (5) Diabetes mellitus Code(s): E11.9 - TYPE 2 DIABETES MELLITUS WITHOUT COMPLICATIONS Qualifiers: Diabetes mellitus type: type 2 (6) HTN (hypertension) Code(s): I10 - ESSENTIAL (PRIMARY) HYPERTENSION Qualifiers: Hypertension type: essential hypertension Qualified Code(s): I10 - Essential (primary) hypertension Assessment/Plan 1. PAF converted to sinus rhythm 2. HTN 3. Hypercholesterolemia 4. Aortic aneurysm 5. DM 6. Organic brain/dementia 7. History of ulcerative pancolitis 8. Anemia PLAN: 1. Continue Metoprolol to 50 mg BID and losartan 25 qd as hemodynamics tolerate 2. Continue Eliquis 5 mg BID given elevated risk score and monitor CBC 3. Echocardiography on Sunday to assess LV/RV and valvular function 4. Monitor H/H
--- NOTE | 2019-07-14 13:26 | PN ---
Progress Note (short form) - Note Progress Note: pt seen/ examined awake/ comfortable calm denies pain Cardiology f/u noted-- Echo - ordered Vital Signs Temp 98.3 F 07/14/19 09:00 Pulse 61 07/14/19 09:00 Resp 18 07/14/19 09:00 BP 144/70 07/14/19 09:00 Pulse Ox 98 07/14/19 09:00 Intake & Output 07/13/19 07/14/19 07/14/19 23:59 11:59 23:59 Intake Total 338 10 Balance 338 10 Intake: IV 38 10 HEPARIN INFUSION - 25,000 38 units In 500 ml @ 800 UNITS/HR 16 mls/hr IVPB TITR [facility] Rx#:[id number] SALINE LOCK 10 Oral 300 Other: Voiding Method Incontinent Incontinent # Unmeasured Voids Void 2 Bowel Movement No Active Medications Alprazolam (Xanax -) 0.25 mg PO Q8H PRN PRN Reason: ANXIETY Apixaban (Eliquis -) 5 mg PO BID [facility] Last Admin: 07/14/19 09:42 Dose: 5 mg Insulin Aspart (Novolog Vial Sliding Scale -) 1 vial SQ [facility]; Protocol Last Admin: 07/14/19 12:34 Dose: 4 units Losartan Potassium (Cozaar -) 25 mg PO DAILY [facility] Last Admin: 07/14/19 09:41 Dose: 25 mg Metoprolol Tartrate (Lopressor Injection -) 5 mg IVPUSH Q4H PRN PRN Reason: HYPERTENSION Metoprolol Tartrate (Lopressor -) 50 mg PO BID [facility] Last Admin: 07/14/19 09:42 Dose: 50 mg Quetiapine Fumarate (Seroquel -) 25 mg PO HS [facility] Last Admin: 07/13/19 21:06 Dose: 25 mg Zinc Oxide (Desitin Diaper Rash Oint -) 1 applic TP ASDIR PRN PRN Reason: HYGEINE CBC, BMP 07/14/19 05:30 07/13/19 06:33 Physical Exam Constitutional: Yes: No Distress, Comfortable Eyes: Yes: Conjunctiva Clear Neck: Yes: Supple Cardiovascular: Yes: Pulse Irregular Respiratory: Yes: Diminished Gastrointestinal: Yes: Soft Edema: No Neurological: Yes: Alert Assessment/Plan Monitor on Tele Cardizem heparin drip-- d/misti - Eliquis monitor cbc/ lytes xanax for anxiety Condition stable but gaurded echo will follow d/c planning Pt is dnr/Di Problem List - Problems (1) Anemia Code(s): D64.9 - ANEMIA, UNSPECIFIED (2) Aortic aneurysm Code(s): I71.9 - AORTIC ANEURYSM OF UNSPECIFIED SITE, WITHOUT RUPTURE (3) Atrial fibrillation with RVR Code(s): I48.91 - UNSPECIFIED ATRIAL FIBRILLATION (4) Dementia Code(s): F03.90 - UNSPECIFIED DEMENTIA WITHOUT BEHAVIORAL DISTURBANCE (5) Diabetes mellitus Code(s): E11.9 - TYPE 2 DIABETES MELLITUS WITHOUT COMPLICATIONS (6) Hypercholesterolemia Code(s): E78.00 - PURE HYPERCHOLESTEROLEMIA, UNSPECIFIED Problem List - Problems (1) Anemia Code(s): D64.9 - ANEMIA, UNSPECIFIED Qualifiers: Anemia type: unspecified type Qualified Code(s): D64.9 - Anemia, unspecified (2) Aortic aneurysm Code(s): I71.9 - AORTIC ANEURYSM OF UNSPECIFIED SITE, WITHOUT RUPTURE (3) Atrial fibrillation with RVR Code(s): I48.91 - UNSPECIFIED ATRIAL FIBRILLATION (4) Dementia Code(s): F03.90 - UNSPECIFIED DEMENTIA WITHOUT BEHAVIORAL DISTURBANCE Qualifiers: Dementia type: unspecified type Dementia behavioral disturbance: without behavioral disturbance Qualified Code(s): F03.90 - Unspecified dementia without behavioral disturbance (5) Diabetes mellitus Code(s): E11.9 - TYPE 2 DIABETES MELLITUS WITHOUT COMPLICATIONS Qualifiers: Diabetes mellitus type: type 2 (6) Hypercholesterolemia Code(s): E78.00 - PURE HYPERCHOLESTEROLEMIA, UNSPECIFIED
--- NOTE | 2019-07-14 13:42 | EKG ---
Test Reason : Blood Pressure : / mmHG Vent. Rate : 176 BPM Atrial Rate : 088 BPM P-R Int : 000 ms QRS Dur : 066 ms QT Int : 262 ms P-R-T Axes : 000 -17 257 degrees QTc Int : 448 ms ATRIAL FIBRILLATION WITH RAPID VENTRICULAR RESPONSE WITH PREMATURE VENTRICULAR OR ABERRANTLY CONDUCTED COMPLEXES SEPTAL INFARCT , AGE UNDETERMINED ABNORMAL ECG WHEN COMPARED WITH ECG OF 11-JUL-2019 22:39, ATRIAL FIBRILLATION HAS REPLACED SINUS RHYTHM VENT. RATE HAS INCREASED BY 89 BPM NONSPECIFIC T WAVE ABNORMALITY NOW EVIDENT IN INFERIOR LEADS NONSPECIFIC T WAVE ABNORMALITY NOW EVIDENT IN ANTEROLATERAL LEADS Confirmed by CHANO PIERCE MD ([id number]) on 07/14/2019 1:41:37 PM Referred By: Confirmed By:CHANO PIERCE MD
--- NOTE | 2019-07-14 15:46 | ECHO ---
Name: HENNY NASH Exam:Adult Echocardiogram Study Date: 07/14/2019 02:10 PM Age: 78 yrs Height: 63 in Weight: 97 lb BSA: 1.4 m2 MMode/2D Measurements & Calculations IVSd: 0.77 cm Ao root diam: 2.8 cm LVIDd: 4.9 cm LA dimension: 2.9 cm LVIDs: 3.2 cm LVPWd: 1.0 cm LVPWs: 1.3 cm EDV(Teich): 111.3 ml ESV(Teich): 42.2 ml LVOT diam: 1.8 cm LAV (MOD-bp): 94.0 ml Doppler Measurements & Calculations MV V2 max: 71.9 cm/sec MV E max mathieu: 57.3 cm/sec MV max P.1 mmHg MV A max mathieu: 73.1 cm/sec MV V2 mean: 46.1 cm/sec MV E/A: 0.78 MV mean P.96 mmHg MV dec time: 0.16 sec MV V2 VTI: 31.6 cm Ao V2 max: 175.0 cm/sec LV V1 max P.1 mmHg Ao max P.3 mmHg LV V1 max: 87.9 cm/sec NAUN(V,D): 1.3 cm2 MR max mathieu: 495.3 cm/sec TR max mathieu: 246.7 cm/sec MR max P.1 mmHg TR max P.6 mmHg PA V2 max: 80.4 cm/sec Med Peak E' Mathieu: 3.7 cm/sec PA max P.6 mmHg Med E/e': 15.4 Lat Peak E' Mathieu: 3.3 cm/sec Lat E/e': 17.4 Procedure A complete two-dimensional transthoracic echocardiogram was performed (2D, M-mode, Doppler and color flow Doppler). Technically limited study. Left Ventricle The left ventricle is normal in size. Left ventricular systolic function is normal. Ejection Fraction = 60- 65%. No regional wall motion abnormalities noted. Right Ventricle The right ventricle is normal size. The right ventricular systolic function is normal. TV systolic TD I is 11 cm/s. Atria The left atrial size is normal. Right atrial size is normal. Mitral Valve The mitral valve is normal in structure and function. There is mild to moderate mitral regurgitation. Tricuspid Valve The tricuspid valve is normal in structure and function. There is moderate tricuspid regurgitation. Aortic Valve There is mild to moderate aortic sclerosis.;. Mild aortic regurgitation. Pulmonic Valve The pulmonic valve is not well visualized. Great Vessels The aortic root is normal size. Pericardium/Pleura There is no pericardial effusion. Interpretation Summary Technically limited study The left ventricle is normal in size. Left ventricular systolic function is normal. No regional wall motion abnormalities noted. Ejection Fraction = 60-65%. The right ventricular systolic function is normal. The left atrial size is normal. Right atrial size is normal. There is mild to moderate mitral regurgitation. There is moderate tricuspid regurgitation. There is mild to moderate aortic sclerosis.; Mild aortic regurgitation. There is no pericardial effusion. Chung Scott MD 07/14/2019 03:46 PM
[2019-07-14] MEDS: QUEtiapine FUMARATE 25 MG TABLET (FP) PO SCH (22:02)
[2019-07-15] MEDS: INSULIN SLIDING SCALE (NOVOLOG) 1 VIAL SQ SCH ×2 (06:23→11:29)
[2019-07-15 07:10] LABS: HEMATOCRIT 25.1 % (32.4-45.2); HEMOGLOBIN 7.8 GM/dL (10.7-15.3); MCH 22.8 pg (25.7-33.7); MEAN CELL VOLUME 73.5 fl (80-96); MEAN PLT VOLUME 8.3 fl (7.5-11.1); PLATELET COUNT 262 K/MM3 (134-434); RBC 3.41 M/mm3 (3.60-5.2); RDW 22.7 % (11.6-15.6); WHITE BLOOD COUNT 5.9 K/mm3 (4.0-10.0)
[2019-07-15 09:08] VITALS: BP 135/83; PULSE 64; TEMP 97.4
[2019-07-15] MEDS: LOSARTAN POTASSIUM 50 MG TABLET (FP) PO SCH (09:36)
[2019-07-15] MEDS: APIXABAN 5 MG TABLET PO SCH (09:37)
[2019-07-15] MEDS: METOPROLOL TARTRATE 50 MG TABLET (FP) PO SCH (09:37)
--- NOTE | 2019-07-15 11:32 | DS ---
Physical Examination Vital Signs: Vital Signs Temperature 97.4 F L 07/15/19 08:59 Pulse Rate 64 07/15/19 08:59 Respiratory Rate 20 07/15/19 09:00 Blood Pressure 135/83 07/15/19 08:59 O2 Sat by Pulse Oximetry (%) 95 07/15/19 09:00 Constitutional: Yes: No Distress, Calm Cardiovascular: Yes: Pulse Irregular Respiratory: Yes: CTA Bilaterally Gastrointestinal: Yes: Normal Bowel Sounds, Soft. No: Tenderness Edema: No Labs: CBC, BMP 07/15/19 06:50 07/13/19 06:33 Discharge Summary Problems reviewed: Yes Reason For Visit: ANEMIA Current Active Problems Anemia (Acute) Aortic aneurysm (Acute) Atrial fibrillation with RVR (Acute) Dementia (Acute) Diabetes mellitus (Acute) HTN (hypertension) (Acute) Hypercholesterolemia (Acute) Ulcerative pancolitis (Acute) Hospital Course: ADMISSION HISTORY OF PRESENT ILLNESS: Pt is a 78 yo F with PMhx of dementia, HTN, HLD, COPD, IDDM, ISIDRO, aortic aneurysm, ulcerative pancolitis who was made DNR/DNI yesterday sent from [facility] for Hb 7.3 at 9am this morning for transfusion. Pt is demented at baseline and possibly unreliable witnessed, but reported retrosternal chest pain earlier that has since resolved. No SOB, pt reports being able to ambulate with a walker at [facility]. No hematochezia, hematemesis or melena. Pt was admitted here in August and noted to have the fusiform aneurysmal dialtion of aorta and pancolitis. ER course was notable for: (1) CTAP, (2) H/H- 8.0/26.2, MCV-71.9 (3) trop 0.02 Hospital course Pt was transfused one unit PRBC Stool guaic x 2 negative Stable on Eliquis She went into rapid afib in ER-- was on cardizem drip evaluated by cardiology Now rate stable on PO Metoprolol Echo--EF 60-65%, normal wall motion CT chest/abd/pelvis-- pulmonary congestion, 3.5 cm AAA- no dissection Pt is clinically better stable for dc to [place] - Instructions Referrals: Emery Talavera MD [Primary Care Provider] - Disposition: [facility] - Home Medications Comprehensive Discharge Medication List: Ambulatory Orders Ergocalciferol (Vitamin D2) [Vitamin D2] 50,000 unit PO WEEKLY 08/23/18 Ferrous Sulfate [Feosol] 325 mg PO DAILY 08/23/18 metFORMIN HCL [Metformin HCl ER] 1,000 mg PO BID 08/23/18 Mirtazapine [Remeron -] 15 mg PO HS 01/06/19 Albuterol 0.083% Nebulizer [place] [Ventolin 0.083% Nebulizer Soln -] 1 neb NEB TID 02/25/19 Apixaban [Eliquis] 5 mg PO BID 02/25/19 Sennosides [Senna] 2 tab PO HS 02/25/19 Albuterol 0.083% Nebulizer [place] [Ventolin 0.083% Nebulizer Soln -] 1 neb NEB Q6H 07/12/19 Ascorbate Calcium [Vitamin C] 500 mg PO DAILY 07/12/19 Atorvastatin Calcium 10 mg PO HS 07/12/19 Famotidine [Pepcid] 40 mg PO BID 07/12/19 Insulin Lispro [Humalog] See Protocol SQ 07/12/19 Alprazolam [Xanax] 0.25 mg PO Q8H PRN tablet MDD 3 07/15/19 Losartan Potassium [Cozaar -] 25 mg PO DAILY #20 tablet 07/15/19 Metoprolol Tartrate [Lopressor -] 50 mg PO BID #60 tablet 07/15/19 Quetiapine Fumarate [Seroquel -] 25 mg PO HS #30 tablet 07/15/19
--- NOTE | 2019-07-15 12:24 | PN ---
Progress Note, Physician Chief Complaint: Not in distress Underlying organic brain Remains in sinus rhythm History of Present Illness: Patient was seen and examined. Awake. Chart was reviewed Tolerating therapy - Current Medication List Current Medications: Active Medications Alprazolam (Xanax -) 0.25 mg PO Q8H PRN PRN Reason: ANXIETY Apixaban (Eliquis -) 5 mg PO BID [facility] Last Admin: 07/15/19 09:37 Dose: 5 mg Insulin Aspart (Novolog Vial Sliding Scale -) 1 vial SQ ACHS [facility]; Protocol Last Admin: 07/15/19 11:29 Dose: 4 units Losartan Potassium (Cozaar -) 25 mg PO DAILY [facility] Last Admin: 07/15/19 09:36 Dose: 25 mg Metoprolol Tartrate (Lopressor Injection -) 5 mg IVPUSH Q4H PRN PRN Reason: HYPERTENSION Metoprolol Tartrate (Lopressor -) 50 mg PO BID [facility] Last Admin: 07/15/19 09:37 Dose: 50 mg Quetiapine Fumarate (Seroquel -) 25 mg PO HS [facility] Last Admin: 07/14/19 22:02 Dose: 25 mg Zinc Oxide (Desitin Diaper Rash Oint -) 1 applic TP ASDIR PRN PRN Reason: HYGEINE - Objective Vital Signs: Vital Signs Temperature 97.4 F L 07/15/19 08:59 Pulse Rate 64 07/15/19 08:59 Respiratory Rate 20 07/15/19 09:00 Blood Pressure 135/83 07/15/19 08:59 O2 Sat by Pulse Oximetry (%) 95 07/15/19 09:00 Neck: Yes: Supple Cardiovascular: Yes: Regular Rate and Rhythm, S1, S2 Respiratory: Yes: CTA Bilaterally Gastrointestinal: Yes: Normal Bowel Sounds, Soft. No: Tenderness Edema: No Labs: CBC, BMP 07/15/19 06:50 07/13/19 06:33 Problem List - Problems (1) HTN (hypertension) Code(s): I10 - ESSENTIAL (PRIMARY) HYPERTENSION Qualifiers: Hypertension type: essential hypertension Qualified Code(s): I10 - Essential (primary) hypertension (2) Hypercholesterolemia Code(s): E78.00 - PURE HYPERCHOLESTEROLEMIA, UNSPECIFIED (3) Aortic aneurysm Code(s): I71.9 - AORTIC ANEURYSM OF UNSPECIFIED SITE, WITHOUT RUPTURE (4) Diabetes mellitus Code(s): E11.9 - TYPE 2 DIABETES MELLITUS WITHOUT COMPLICATIONS Qualifiers: Diabetes mellitus type: type 2 (5) Atrial fibrillation with RVR Code(s): I48.91 - UNSPECIFIED ATRIAL FIBRILLATION (6) Ulcerative pancolitis Code(s): K51.00 - ULCERATIVE (CHRONIC) PANCOLITIS WITHOUT COMPLICATIONS (7) Dementia Code(s): F03.90 - UNSPECIFIED DEMENTIA WITHOUT BEHAVIORAL DISTURBANCE Qualifiers: Dementia type: unspecified type Dementia behavioral disturbance: without behavioral disturbance Qualified Code(s): F03.90 - Unspecified dementia without behavioral disturbance (8) Anemia Code(s): D64.9 - ANEMIA, UNSPECIFIED Qualifiers: Anemia type: unspecified type Qualified Code(s): D64.9 - Anemia, unspecified Assessment/Plan 1. PAF converted to sinus rhythm 2. HTN 3. Hypercholesterolemia 4. Aortic aneurysm 5. DM 6. Organic brain/dementia 7. History of ulcerative pancolitis 8. Anemia PLAN: 1. Continue Metoprolol to 50 mg BID and Losartan 25 mg QD as tolerated. 2. Continue Eliquis 5 mg BID and monitor CBC 3. Echocardiography reviewed - Normal LVEF 60-65%, mild MR, mild to moderate TR and mild AR 4. Monitor H/H Chung Scott MD
== END 2019-07-15 13:04 | DRG 812 ==
LOC: JER 20:37 → INTOOBSV 07-12 01:11 → JERBED 07-12 01:11 → J4W 07-12 18:04 → OBSVTOIN 07-12 20:15
PROVIDERS: ADMIT Internal Medicine; ATTEND Internal Medicine
PROC: 30233N1 Transfusion of Nonautologous Red Blood Cells into Peripheral Vein, Percutaneous Approach (ICD-10-PCS; principal; 2019-07-12)
DX: D64.9 Anemia, unspecified (principal); E46 Unspecified protein-calorie malnutrition; J44.9 Chronic obstructive pulmonary disease, unspecified; E11.9 Type 2 diabetes mellitus without complications; E88.09 Other disorders of plasma-protein metabolism, not elsewhere classified; I71.9 Aortic aneurysm of unspecified site, without rupture; I48.0 Paroxysmal atrial fibrillation; F03.90 Unspecified dementia, unspecified severity, without behavioral disturbance, psychotic disturbance, mood disturbance, and anxiety; E78.5 Hyperlipidemia, unspecified
CPT/HCPCS: 36415; 36430; 36511; 71045-TC-FY; 71275-TC; 74174-TC; 80053; 82272; 82550; 82962; 84484; 85025; 85027; 85610; 85730; 86850; 86900; 86901; 86922; 93005; 93010; 93306-TC; 99285-25; G0378; J1644; P9038; P9058